=== PATIENT | male | born 1965 | race Caucasian/White ===

== ENCOUNTER 2016-11-06 18:16 | Emergency (ER) | payer OTHER ==
[~2016-11-06] VITALS: Ht 177.8 cm; Wt 95.3 kg
[~2016-11-06 18:16] MED LIST: ACETAMINOPHEN-1 EAC1 ORAL; ATARAX25 MG ORAL; AZITHROMYCIN250 MG ORAL; BACITRACIN ZIN1 EACH TOPIC; CIPRODEX OTIC7.5 M1 RIGHT EAR; CLEOCIN150 MG ORAL; CORTISONE14 GM TP; GABAPENTIN100 MG ORAL; HYDROCODON-ACE1 EA15 ORAL; KLONOPIN1 MG ORAL; LEVAQUIN750 MG ORAL; LIBRIUM25 MG ORAL; NAPROXEN375 MG ORAL; NEURONTIN300 MG PO; NKM; NORCO 10-325 T1 EACH PO; NORCO 5-325 TA1 EACH ORAL; NORVASC10 MG ORAL; NORVASC2.5 MG ORAL; TRAMADOL HCL50 MG ORAL; TYLENOL325 MG ORAL
[2016-11-06] MEDS ORDERED: Albuterol ud Inhalation HHN ONE (18:30)
[2016-11-06] MEDS ORDERED: Ipratropium 0.02% Inh Soln 2.5ml UD HHN ONE (18:30)
[2016-11-06 19:08] LABS: EOSINOPHILS % (AUTO) 0.5 % (0.0-3.0); LYMPHOCYTES % (AUTO) 26.9 % (20.0-45.0); MEAN CORPUSCULAR HEMOGLOBIN 30.7 PG (27.0-31.0); MEAN CORPUSCULAR VOLUME 93 FL (80-99); MEAN PLATELET VOLUME 6.4 FL (6.5-10.1); MONOCYTES % (AUTO) 8.1 % (1.0-10.0); NEUTROPHILS % (AUTO) 63.4 % (45.0-75.0); PLATELET COUNT 400 K/UL (150-450); RED CELL DISTRIBUTION WIDTH 13.5 % (11.6-14.8); WHITE BLOOD COUNT 9.9 K/UL (4.8-10.8)
[2016-11-06 19:09] LABS: APPEARANCE,URINE CLEAR; KETONES,URINE 1+ (NEGATIVE); LEUKOCYTE ESTERASE ,URINE NEGATIVE (NEGATIVE); NITRITE,URINE NEGATIVE (NEGATIVE); PH,URINE 5 (4.5-8.0); PROTEIN,URINE 2+ (NEGATIVE); UROBILINOGEN,URINE NORMAL MG/DL (0.0-1.0)
[2016-11-06 19:16] LABS: BACTERIA,URINE FEW /HPF; RBC,URINE 0-2 /HPF (0 - 0); URIC ACID CRYSTALS,URINE FEW /LPF; WBC,URINE 0-2 /HPF (0 - 0)
[2016-11-06 19:18] LABS: ALANINE AMINOTRANSFERASE 47 U/L (3-41); AMYLASE 114 U/L (10-110); ANION GAP 21 (5-15); ASPARTATE AMINO TRANSFERASE 32 U/L (5-40); CALCIUM 8.3 mg/dL (8.6-10.2); CARBON DIOXIDE 23 mEQ/L (20-30); CHLORIDE 100 mEQ/L (98-107); CREATININE 1.3 mg/dL (0.7-1.2); GLOMERULAR FILTRATION RATE 57.7 mL/min (>60); HEMOLYSIS 2; LIPASE 128 U/L (< 60); POTASSIUM 4.5 mEQ/L (3.4-4.9); SODIUM 144 mEQ/L (135-145); TOTAL PROTEIN 7.4 g/dL (6.6-8.7)
[2016-11-06] MEDS ORDERED: TYLENOL EXTRA500 MG ORAL (19:40)
[2016-11-06] MEDS ORDERED: ZOFRAN4 M3 ORAL (19:40)
[2016-11-06 20:22] VITALS: BP 154/102
[2016-11-06 20:24] VITALS: BP 150/99
--- NOTE | 2016-11-06 21:43 | Emergency Room Report ---
History of Present Illness General Chief Complaint: Abdominal Pain Source: EMS Present Illness HPI The patient is a 51-year-old male RIRIA with history of chronic pancreatitis due to alcohol abuse presenting for abdominal pain which began today. Pain is described as a 10 out of 10 dull ache to the mid upper abdomen. Pain does not radiate. Patient also notes some nausea but denies vomiting. The pain is worse with movement. The patient states that this feels like pancreatitis. Patient denies other symptoms including F, chills, EDMOND, rash, diarrhea, CP, SOB Allergies: Coded Allergies: PENICILLINS (Verified Allergy, Severe, unknown, 11/27/12) PHENOBARBITAL (Verified Allergy, Severe, unknown, 11/27/12) PHENYTOIN SODIUM (Verified Allergy, Severe, unknown, 11/27/12) PHENYTOIN (Unverified Allergy, Unknown, 05/14/16) Patient History Past Medical History: see triage record Pertinent Family History: none Reviewed Nursing Documentation: PMH: Agreed, PSxH: Agreed Nursing Documentation-PMH Hx Hypertension: Yes Hx Asthma: Yes Hx COPD: Yes Hx Diabetes: Yes Hx Cancer: Yes - PANCREATIC Hx Gastrointestinal Problems: Yes - Pancreatic CA History Of Psychiatric Problem: Yes Hx Seizures: Yes Review of Systems All Other Systems: negative except mentioned in HPI Physical Exam Vital Signs Date Time Temp Pulse Resp B/P Pulse Ox O2 Delivery O2 Flow Rate FiO2 11/06/16 18:03 98.2 100 16 154/102 100 Room Air Sp02 EP Interpretation: reviewed, normal General Appearance: no apparent distress, alert, GCS 15, non-toxic Head: normocephalic, atraumatic Eyes: bilateral eye PERRL, bilateral eye normal inspection ENT: hearing grossly normal, normal pharynx, no angioedema, normal voice Neck: full range of motion, supple/symm/no masses Respiratory: normal breath sounds, no accessory muscle use, wheezing Gastrointestinal: normal bowel sounds, no guarding, tenderness - epigastric Musculoskeletal: back normal, digits/nails normal, normal range of motion Neurologic: alert, oriented x3, responsive, normal gait Skin: normal color, no rash, warm/dry, well hydrated Lymphatic: no adenopathy Medical Decision Making PA Attestation Dr. Hayden is my supervising physician. Patient management was discussed with my supervising physician Diagnostic Impression: Primary Impression: Chronic pancreatitis ER Course The patient is a 51-year-old male BIBA with history of chronic pancreatitis presenting for abdominal pain Differential diagnoses considered include but not limited to gastroenteritis, pancreatitis, appendicitis,, UTI Physical exam: Afebrile. No apparent distress Abdomen: Soft. Normal bowel sounds. There is tenderness to palpation of her epigastric region only. No guarding. No discoloration There is audible wheezing. Patient given a breathing treatment and is feeling better. Lung sounds have improved Lab work shows no leukocytosis. There is mildly elevated amylase and lipase. The patient is asking to leave. Patient understands the risks. He'll be discharged and will follow up with PMD. ER precaution is given Laboratory Tests Test 11/06/16 18:51 White Blood Count 9.9 K/UL (4.8-10.8) Red Blood Count 4.10 M/UL (4.70-6.10) L Hemoglobin 12.6 G/DL (14.2-18.0) L Hematocrit 38.1 % (42.0-52.0) L Mean Corpuscular Volume 93 FL (80-99) Mean Corpuscular Hemoglobin 30.7 PG (27.0-31.0) Mean Corpuscular Hemoglobin Concent 33.0 G/DL (32.0-36.0) Red Cell Distribution Width 13.5 % (11.6-14.8) Platelet Count 400 K/UL (150-450) Mean Platelet Volume 6.4 FL (6.5-10.1) L Neutrophils (%) (Auto) 63.4 % (45.0-75.0) Lymphocytes (%) (Auto) 26.9 % (20.0-45.0) Monocytes (%) (Auto) 8.1 % (1.0-10.0) Eosinophils (%) (Auto) 0.5 % (0.0-3.0) Basophils (%) (Auto) 1.0 % (0.0-2.0) Urine Color Pale yellow Urine Appearance Clear Urine pH 5 (4.5-8.0) Urine Specific [place] 1.020 (1.005-1.035) Urine Protein 2+ (NEGATIVE) H Urine Glucose (UA) Negative (NEGATIVE) Urine Ketones 1+ (NEGATIVE) H Urine Occult Blood Negative (NEGATIVE) Urine Nitrite Negative (NEGATIVE) Urine Bilirubin Negative (NEGATIVE) Urine Urobilinogen Normal MG/DL (0.0-1.0) Urine Leukocyte Esterase Negative (NEGATIVE) Urine RBC 0-2 /HPF (0 - 0) H Urine WBC 0-2 /HPF (0 - 0) Urine Squamous Epithelial Cells None /LPF (NONE/OCC) Urine Uric Acid Crystals Few /LPF (NONE) H Urine Bacteria Few /HPF (NONE) Sodium Level 144 mEQ/L (135-145) Potassium Level 4.5 mEQ/L (3.4-4.9) Chloride Level 100 mEQ/L (98-107) Carbon Dioxide Level 23 mEQ/L (20-30) Anion Gap 21 (5-15) H Blood Urea Nitrogen 28 mg/dL (7-23) H Creatinine 1.3 mg/dL (0.7-1.2) H Estimate Glomerular Filtration Rate 57.7 mL/min (>60) Glucose Level 133 mg/dL (74-106) H Calcium Level 8.3 mg/dL (8.6-10.2) L Total Bilirubin < 0.2 mg/dL (0.0-1.2) Aspartate Amino Transferase (AST) 32 U/L (5-40) Alanine Aminotransferase (ALT) 47 U/L (3-41) H Alkaline Phosphatase 99 U/L (40-129) Total Protein 7.4 g/dL (6.6-8.7) Albumin 3.7 g/dL (3.5-5.2) Globulin 3.7 g/dL Albumin/Globulin Ratio 1.0 (1.0-2.7) Amylase Level 114 U/L (10-110) H Lipase 128 U/L (< 60) H Lab Results Impression CBC shows no leukocytosis. CMP: BUN and creatinine are mildly elevated. ALT elevated Amylase and lipase elevated. Last Vital Signs Date Time Temp Pulse Resp B/P Pulse Ox O2 Delivery O2 Flow Rate FiO2 11/06/16 20:24 84 20 150/99 95 Room Air 11/06/16 20:22 98.2 Status: improved Disposition: HOME, SELF-CARE Condition: Stable Scripts Ondansetron* (ZOFRAN*) 4 Mg Tablet 4 MG ORAL Q6H Y for Nausea & Vomiting, #15 TAB Prov: TERZIANGUILLERMO P.A. 11/06/16 Acetaminophen* (TYLENOL EXTRA STRENGTH*) 500 Mg Tablet 500 MG ORAL Q8H Y for Prn Headache/Temp > 101, #30 TAB 0 Refills Prov: GUILLERMO PEREZ 11/06/16 Referrals: [facility] (PCP) Patient Instructions: Abdominal Pain, Adult Additional Instructions: I discussed my findings with the patient. All questions and concerns have been answered. Treatment and medication compliance have been addressed. I advised the patient that they need to follow up with PMD in 3-5 days. Return to ED if symptoms worsen, new symptoms arise, or if needed for any reason. Patient verbalized understanding of discharge instructions. GUILLERMO PEREZ Nov 06, 2016 21:41
[2016-11-07] MEDS ORDERED: NORCO 5-325 TA1 EAC1 ORAL (16:40)
== END 2016-11-06 20:00 | disposition home or self-care (01) ==
LOC: EDBD 18:16 → EMR 18:28
DX: K86.1 Other chronic pancreatitis (principal); E11.9 Type 2 diabetes mellitus without complications; I10 Essential (primary) hypertension; J45.909 Unspecified asthma, uncomplicated; J44.9 Chronic obstructive pulmonary disease, unspecified; Z85.07 Personal history of malignant neoplasm of pancreas; Z88.0 Allergy status to penicillin; Z88.8 Allergy status to other drugs, medicaments and biological substances
CPT/HCPCS: 36415; 80053; 81003; 82150; 83690; 85025; 94640; 94664; 99284

== ENCOUNTER 2016-11-07 14:49 | Emergency (ER) | payer OTHER ==
[~2016-11-07] VITALS: Ht 177.8 cm; Wt 93.0 kg
[~2016-11-07 14:49] MED LIST changes: +TYLENOL EXTRA500 MG ORAL; +ZOFRAN4 M3 ORAL
[2016-11-07 14:53] VITALS: BP 155/112
--- NOTE | 2016-11-07 14:56 | Emergency Room Report ---
History of Present Illness General Chief Complaint: Abdominal Pain Source: Patient, EMS Present Illness HPI Patient is a 51-year-old male who presented after increased abdominal pain as well as vomiting. Patient had prior history of pancreatitis as well as alcohol abuse. Patient reports having increased vomiting. He denies any hematemesis or bloody stools. Patient been drinking alcohol earlier in the day. Patient reports also having a seizure disorder. He states he is allergic to Dilantin and phenobarbital. Allergies: Coded Allergies: PENICILLINS (Verified Allergy, Severe, unknown, 11/27/12) PHENOBARBITAL (Verified Allergy, Severe, unknown, 11/27/12) PHENYTOIN SODIUM (Verified Allergy, Severe, unknown, 11/27/12) PHENYTOIN (Unverified Allergy, Unknown, 05/14/16) Patient History Reviewed Nursing Documentation: PMH: Agreed, PSxH: Agreed Nursing Documentation-PMH Hx Hypertension: Yes Hx Asthma: Yes Hx COPD: Yes Hx Diabetes: Yes Hx Cancer: Yes - PANCREATIC Hx Gastrointestinal Problems: Yes - Pancreatic CA Hx Seizures: Yes Review of Systems Hematologic/Lymphatic: Reports: see HPI All Other Systems: negative except mentioned in HPI Physical Exam Vital Signs Date Time Temp Pulse Resp B/P Pulse Ox O2 Delivery O2 Flow Rate FiO2 11/07/16 14:46 97.3 123 20 155/112 98 Room Air Sp02 EP Interpretation: reviewed, normal General Appearance: normal inspection, well appearing, no apparent distress, alert, GCS 15 Head: atraumatic ENT: normal ENT inspection, hearing grossly normal, normal voice Neck: normal inspection, full range of motion, supple, no bony tend Respiratory: normal inspection, lungs clear, normal breath sounds, no respiratory distress, no retraction, no wheezing Cardiovascular #1: regular rate, rhythm, no edema Gastrointestinal: normal inspection, normal bowel sounds, non tender, soft, no guarding, no hernia Genitourinary: no CVA tenderness Musculoskeletal: normal inspection, back normal, normal range of motion Neurologic: normal inspection, alert, oriented x3, responsive, client support professional III-XII nml as tested, speech normal Psychiatric: normal inspection, judgement/insight normal, mood/affect normal Skin: normal inspection, normal color, no rash Medical Decision Making Diagnostic Impression: Primary Impression: Alcohol abuse Additional Impression: Pancreatitis ER Course Patient presented for abdominal pain. Differential diagnoses included ischemic bowel, appendicitis, perforated viscus, abdominal aortic aneurysm, inferior myocardial infarction, viral gastroenteritis Because of complexity of patient's case laboratory testing and imaging studies were ordered. The patient appeared to have episodes of pancreatitis in the past. Laboratory testing was consistent with pancreatitis. Patient shows no elevation of his white blood count. Liver function tests are consistent with a chronic alcohol use. Patient was given oral pain medications. He tolerated those well. The patient is advised to follow up with primary care doctor in 1-2 days. Patient is advised to return if any worsening condition or if any changes in status that are concerning. Labs Test 11/07/16 13:10 White Blood Count 9.6 K/UL (4.8-10.8) Red Blood Count 4.03 M/UL (4.70-6.10) Hemoglobin 12.2 G/DL (14.2-18.0) Hematocrit 37.1 % (42.0-52.0) Mean Corpuscular Volume 92 FL (80-99) Mean Corpuscular Hemoglobin 30.2 PG (27.0-31.0) Mean Corpuscular Hemoglobin Concent 32.8 G/DL (32.0-36.0) Red Cell Distribution Width 13.6 % (11.6-14.8) Platelet Count 456 K/UL (150-450) Mean Platelet Volume 7.0 FL (6.5-10.1) Neutrophils (%) (Auto) 63.7 % (45.0-75.0) Lymphocytes (%) (Auto) 29.4 % (20.0-45.0) Monocytes (%) (Auto) 5.6 % (1.0-10.0) Eosinophils (%) (Auto) 0.4 % (0.0-3.0) Basophils (%) (Auto) 0.9 % (0.0-2.0) Sodium Level 138 mEQ/L (135-145) Potassium Level 3.8 mEQ/L (3.4-4.9) Chloride Level 97 mEQ/L (98-107) Carbon Dioxide Level 21 mEQ/L (20-30) Anion Gap 20 (5-15) Blood Urea Nitrogen 20 mg/dL (7-23) Creatinine 0.9 mg/dL (0.7-1.2) Estimat Glomerular Filtration Rate > 60 mL/min (>60) Glucose Level 113 mg/dL (74-106) Calcium Level 8.5 mg/dL (8.6-10.2) Total Bilirubin < 0.2 mg/dL (0.0-1.2) Aspartate Amino Transf (AST/SGOT) 30 U/L (5-40) Alanine Aminotransferase (ALT/SGPT) 42 U/L (3-41) Alkaline Phosphatase 83 U/L (40-129) Troponin I < 0.30 ng/mL (<=0.30) Total Protein 7.3 g/dL (6.6-8.7) Albumin 3.8 g/dL (3.5-5.2) Globulin 3.5 g/dL Albumin/Globulin Ratio 1.0 (1.0-2.7) Lipase 110 U/L (< 60) Phenytoin (Dilantin) Level < 0.8 ug/mL (10-20) Last Vital Signs Date Time Temp Pulse Resp B/P Pulse Ox O2 Delivery O2 Flow Rate FiO2 11/07/16 14:53 20 155/112 98 Room Air 11/07/16 14:46 97.3 123 Status: improved Disposition: HOME, SELF-CARE Scripts Hydrocodone Bit/Acetaminophen 5-325* (NORCO 5-325 TABLET*) 1 Each Tablet 1 TAB ORAL Q4H Y for For Pain, #14 TAB Prov: El Rashid 11/07/16 El Rashid Nov 07, 2016 14:56
[2016-11-07] MEDS ORDERED: Morphine Sulfate 4mg/ml Inj IVP ONE (15:00)
[2016-11-07 15:30] LABS: BASOPHILS % (AUTO) 0.9 % (0.0-2.0); EOSINOPHILS % (AUTO) 0.4 % (0.0-3.0); LYMPHOCYTES % (AUTO) 29.4 % (20.0-45.0); MEAN CORPUSCULAR HEMOGLOBIN 30.2 PG (27.0-31.0); MEAN CORPUSCULAR HGB CONC 32.8 G/DL (32.0-36.0); MEAN CORPUSCULAR VOLUME 92 FL (80-99); MONOCYTES % (AUTO) 5.6 % (1.0-10.0); NEUTROPHILS % (AUTO) 63.7 % (45.0-75.0); PLATELET COUNT 456 K/UL (150-450); RED BLOOD COUNT 4.03 M/UL (4.70-6.10); RED CELL DISTRIBUTION WIDTH 13.6 % (11.6-14.8); WHITE BLOOD COUNT 9.6 K/UL (4.8-10.8)
[2016-11-07 15:43] LABS: ALANINE AMINOTRANSFERASE 42 U/L (3-41); ANION GAP 20 (5-15); ASPARTATE AMINO TRANSFERASE 30 U/L (5-40); CALCIUM 8.5 mg/dL (8.6-10.2); CARBON DIOXIDE 21 mEQ/L (20-30); CHLORIDE 97 mEQ/L (98-107); CREATININE 0.9 mg/dL (0.7-1.2); GLOMERULAR FILTRATION RATE > 60 mL/min (>60); HEMOLYSIS 3; LIPASE 110 U/L (< 60); POTASSIUM 3.8 mEQ/L (3.4-4.9); SODIUM 138 mEQ/L (135-145); TOTAL PROTEIN 7.3 g/dL (6.6-8.7)
[2016-11-07] MEDS ORDERED: DuoNeb 0.5-3(2.5)mg/3ml neb ONE (15:44)
[2016-11-07] MEDS ORDERED: DuoNeb 0.5-3(2.5)mg/3ml neb HHN ONE (15:45)
[2016-11-07 15:46] LABS: TROPONIN I < 0.30 ng/mL (<=0.30)
[2016-11-07] MEDS ORDERED: NORCO 5-325 TA1 EAC1 ORAL (16:40)
[2016-11-07 16:45] VITALS: BP 142/89
[2016-11-07] MEDS ORDERED: Norco 10mg/325mg tab ORAL ONE (16:45)
== END 2016-11-07 17:36 | disposition home or self-care (01) ==
LOC: EDBD 14:49 → EMR 15:09
DX: F10.10 Alcohol abuse, uncomplicated (principal); K85.90 Acute pancreatitis without necrosis or infection, unspecified; R11.10 Vomiting, unspecified; G40.909 Epilepsy, unspecified, not intractable, without status epilepticus; Z88.0 Allergy status to penicillin; Z88.8 Allergy status to other drugs, medicaments and biological substances; I10 Essential (primary) hypertension; J44.9 Chronic obstructive pulmonary disease, unspecified; J45.909 Unspecified asthma, uncomplicated; E11.9 Type 2 diabetes mellitus without complications; Z85.07 Personal history of malignant neoplasm of pancreas
CPT/HCPCS: 36415; 80053; 80185; 83690; 84484; 85025; 94640; 94664; 96374; 96375; 99284; J2270; J2405; J7620

== ENCOUNTER 2016-12-07 23:49 | Emergency (ER) | payer OTHER ==
[~2016-12-07] VITALS: Ht 175.3 cm; Wt 63.5 kg
[~2016-12-07 23:49] MED LIST changes: +NORCO 5-325 TA1 EAC1 ORAL
[2016-12-08] VITALS: BP 141/113
[2016-12-08] MEDS ORDERED: Metoclopramide 10mg/2ml Inj IVP ONE
[2016-12-08] MEDS ORDERED: Famotidine 20 MG/ 2ML VIAL IVP ONE
[2016-12-08] MEDS ORDERED: DiphenhydrAMINE 50mg/ml Inj IVP ONE
--- NOTE | 2016-12-08 00:14 | Emergency Room Report ---
History of Present Illness General Chief Complaint: Abdominal Pain Source: Patient, EMS Present Illness HPI The patient presents with abdominal pain. It woke him up from sleep. He has chronic abdominal pain with a history of pancreatitis. He was drinking alcohol. He denies other drugs. He has vomited once or twice, no blood. No fevers, chest pain, dyspnea, dizziness. Stools are loose, but no melena. Pain reported 05/29 - but calm during exam. He has been seen here multiple times. Brought by EMS. H/O seizures - denies recent seizures. H/O alleged pancreatic cancer - no treatment currently. Prior other substance abuse. No depression, HI, SI. No recent trauma or extremity pain. Allergies: Coded Allergies: PENICILLINS (Verified Allergy, Severe, unknown, 11/27/12) PHENOBARBITAL (Verified Allergy, Severe, unknown, 11/27/12) PHENYTOIN SODIUM (Verified Allergy, Severe, unknown, 11/27/12) IBUPROFEN (Unverified Allergy, Unknown, 12/07/16) PHENYTOIN (Unverified Allergy, Unknown, 05/14/16) Patient History Past Medical History: see triage record Social History: Reports: alcohol use, drug use, smoking Social History Narrative at home Reviewed Nursing Documentation: PMH: Agreed, PSxH: Agreed Nursing Documentation-PMH Past Medical History: No History, Except For Hx Hypertension: Yes Hx Asthma: Yes Hx COPD: Yes Hx Diabetes: Yes Hx Cancer: Yes - PANCREATIC Hx Seizures: Yes Review of Systems All Other Systems: negative except mentioned in HPI Physical Exam Vital Signs Date Time Temp Pulse Resp B/P Pulse Ox O2 Delivery O2 Flow Rate FiO2 12/07/16 23:48 98.1 126 16 141/113 98 Room Air Sp02 EP Interpretation: reviewed, normal General Appearance: well appearing, no apparent distress, GCS 15 Head: normocephalic Eyes: bilateral eye PERRL, bilateral eye Scleral Injection ENT: moist mucus membranes, other - R nare trauma Neck: supple Respiratory: lungs clear, normal breath sounds Cardiovascular #1: regular rate, rhythm Cardiovascular #2: 2+ radial (R) Gastrointestinal: normal inspection, normal bowel sounds, no mass, non- distended, tenderness - voluntary guarding, more epigastric - distractable Musculoskeletal: back normal, gait/station normal, normal range of motion Neurologic: alert, oriented x3, grossly normal Psychiatric: other - pressuring for pain medicine Skin: normal inspection, warm/dry Medical Decision Making Diagnostic Impression: Primary Impression: Abdominal pain Qualified Codes: R10.13 - Epigastric pain Additional Impressions: AMA Alcohol intoxication Qualified Codes: F10.129 - Alcohol abuse with intoxication, unspecified Chronic pancreatitis Qualified Codes: K86.1 - Other chronic pancreatitis ER Course Patient presents with abdominal pain with h/o pancreatitis. Ddx: pancreatitis, gastritis, alcohol intoxication, GERD, drug seeking amongst others. Urgent evaluation with labs. Treatment with IV hydration, reglan, benadryl and pepcid. Patient ripped out IV and left ED. He left before percocet was given. Labs return with elevated blood alcohol and minimally elevated lipase. Laboratory Tests Test 12/08/16 00:22 White Blood Count 7.3 K/UL (4.8-10.8) Red Blood Count 4.52 M/UL (4.70-6.10) L Hemoglobin 14.2 G/DL (14.2-18.0) Hematocrit 42.3 % (42.0-52.0) Mean Corpuscular Volume 94 FL (80-99) Mean Corpuscular Hemoglobin 31.5 PG (27.0-31.0) H Mean Corpuscular Hemoglobin Concent 33.6 G/DL (32.0-36.0) Red Cell Distribution Width 15.2 % (11.6-14.8) H Platelet Count 330 K/UL (150-450) Mean Platelet Volume 7.0 FL (6.5-10.1) Neutrophils (%) (Auto) 35.0 % (45.0-75.0) L Lymphocytes (%) (Auto) 54.5 % (20.0-45.0) H Monocytes (%) (Auto) 6.9 % (1.0-10.0) Eosinophils (%) (Auto) 2.5 % (0.0-3.0) Basophils (%) (Auto) 1.2 % (0.0-2.0) Prothrombin Time 10.5 SEC (9.30-11.50) Prothrombin Time INR 1.0 (0.9-1.1) PTT 26 SEC (23-33) Sodium Level 144 mEQ/L (135-145) Potassium Level 3.6 mEQ/L (3.4-4.9) Chloride Level 103 mEQ/L (98-107) Carbon Dioxide Level 26 mEQ/L (20-30) Anion Gap 15 (5-15) Blood Urea Nitrogen 10 mg/dL (7-23) Creatinine 0.7 mg/dL (0.7-1.2) Estimate Glomerular Filtration Rate > 60 mL/min (>60) Glucose Level 94 mg/dL (74-106) Calcium Level 8.2 mg/dL (8.6-10.2) L Total Bilirubin 0.2 mg/dL (0.0-1.2) Aspartate Amino Transferase (AST) 26 U/L (5-40) Alanine Aminotransferase (ALT) 18 U/L (3-41) Alkaline Phosphatase 78 U/L (40-129) Total Creatine Kinase 82 U/L (38-174) Troponin I < 0.30 ng/mL (<=0.30) Total Protein 7.2 g/dL (6.6-8.7) Albumin 3.4 g/dL (3.5-5.2) L Globulin 3.8 g/dL Albumin/Globulin Ratio 0.8 (1.0-2.7) L Lipase 88 U/L (< 60) H Serum Alcohol 330 mg/dL EKG Diagnostic Results Rate: tachycardiac Rhythm: NSR ST Segments: no acute changes Rhythm Strip Diag. Results EP Interpretation: yes Rhythm: no PVC's, no ectopy, other - tachy Last Vital Signs Date Time Temp Pulse Resp B/P Pulse Ox O2 Delivery O2 Flow Rate FiO2 12/08/16 00:50 98.1 126 16 141/113 98 Room Air Status: improved Disposition: AGAINST MEDICAL ADVICE Condition: Stable Referrals: [facility] (PCP) Zaid Hawkins M.D. Dec 08, 2016 00:14
[2016-12-08 00:49] LABS: BASOPHILS % (AUTO) 1.2 % (0.0-2.0); EOSINOPHILS % (AUTO) 2.5 % (0.0-3.0); LYMPHOCYTES % (AUTO) 54.5 % (20.0-45.0); MEAN CORPUSCULAR HEMOGLOBIN 31.5 PG (27.0-31.0); MEAN CORPUSCULAR HGB CONC 33.6 G/DL (32.0-36.0); MEAN CORPUSCULAR VOLUME 94 FL (80-99); MONOCYTES % (AUTO) 6.9 % (1.0-10.0); PLATELET COUNT 330 K/UL (150-450); RED BLOOD COUNT 4.52 M/UL (4.70-6.10); RED CELL DISTRIBUTION WIDTH 15.2 % (11.6-14.8); WHITE BLOOD COUNT 7.3 K/UL (4.8-10.8)
[2016-12-08 00:50] VITALS: BP 141/113
[2016-12-08 00:57] LABS: PROTHROMBIN TIME 10.5 SEC (9.30-11.50)
[2016-12-08 00:58] LABS: ALANINE AMINOTRANSFERASE 18 U/L (3-41); ALBUMIN/GLOBULIN RATIO 0.8 (1.0-2.7); ALCOHOL 330 mg/dL; ANION GAP 15 (5-15); ASPARTATE AMINO TRANSFERASE 26 U/L (5-40); CALCIUM 8.2 mg/dL (8.6-10.2); CARBON DIOXIDE 26 mEQ/L (20-30); CHLORIDE 103 mEQ/L (98-107); CREATININE 0.7 mg/dL (0.7-1.2); GLOMERULAR FILTRATION RATE > 60 mL/min (>60); HEMOLYSIS 6; LIPASE 88 U/L (< 60); POTASSIUM 3.6 mEQ/L (3.4-4.9); SODIUM 144 mEQ/L (135-145); TOTAL PROTEIN 7.2 g/dL (6.6-8.7)
[2016-12-08] MEDS ORDERED: Oxycodone/Acetaminophen 5-325 ORAL ONE (01:00)
[2016-12-08 01:27] LABS: TROPONIN I < 0.30 ng/mL (<=0.30)
== END 2016-12-08 00:50 | disposition left against medical advice (07) ==
LOC: EDBD 23:49 → EMR 23:58
DX: R10.13 Epigastric pain (principal); F10.129 Alcohol abuse with intoxication, unspecified; K86.1 Other chronic pancreatitis; G89.29 Other chronic pain; Z88.8 Allergy status to other drugs, medicaments and biological substances; Z88.6 Allergy status to analgesic agent; Z88.0 Allergy status to penicillin; I10 Essential (primary) hypertension; J44.9 Chronic obstructive pulmonary disease, unspecified; J45.909 Unspecified asthma, uncomplicated; Z85.07 Personal history of malignant neoplasm of pancreas; F17.200 Nicotine dependence, unspecified, uncomplicated; E11.9 Type 2 diabetes mellitus without complications
CPT/HCPCS: 36415; 80053; 80329; 82550; 83690; 84484; 85025; 85610; 85730; 93005; 96374; 96375; 99284; J1200; J2765; S0028

== ENCOUNTER 2017-01-05 13:49 | Emergency (ER) | payer OTHER ==
[~2017-01-05] VITALS: Ht 177.8 cm; Wt 77.1 kg
[2017-01-05 14:50] LABS: BASOPHILS % (AUTO) 0.9 % (0.0-2.0); EOSINOPHILS % (AUTO) 1.4 % (0.0-3.0); LYMPHOCYTES % (AUTO) 44.3 % (20.0-45.0); MEAN CORPUSCULAR HEMOGLOBIN 29.6 PG (27.0-31.0); MEAN CORPUSCULAR HGB CONC 31.7 G/DL (32.0-36.0); MEAN CORPUSCULAR VOLUME 93 FL (80-99); MEAN PLATELET VOLUME 6.9 FL (6.5-10.1); MONOCYTES % (AUTO) 5.8 % (1.0-10.0); NEUTROPHILS % (AUTO) 47.6 % (45.0-75.0); PLATELET COUNT 314 K/UL (150-450); RED BLOOD COUNT 5.09 M/UL (4.70-6.10); RED CELL DISTRIBUTION WIDTH 15.7 % (11.6-14.8); WHITE BLOOD COUNT 9.4 K/UL (4.8-10.8)
[2017-01-05 14:57] VITALS: BP 138/100
[2017-01-05] MEDS ORDERED: Norco 5mg/325mg tab ORAL ONE ×2 (15:15→16:45)
[2017-01-05] MEDS ORDERED: DuoNeb 0.5-3(2.5)mg/3ml neb ONE (15:36)
[2017-01-05] MEDS ORDERED: Albuterol ud Inhalation HHN SCH (15:45)
[2017-01-05] MEDS ORDERED: Ipratropium 0.02% Inh Soln 2.5ml UD HHN SCH (15:45)
[2017-01-05 15:56] LABS: ACETAMINOPHEN < 10 ug/mL (10-30); ALANINE AMINOTRANSFERASE 12 U/L (3-41); ALCOHOL 341 mg/dL; ASPARTATE AMINO TRANSFERASE 19 U/L (5-40); CALCIUM 8.9 mg/dL (8.6-10.2); CARBON DIOXIDE 23 mEQ/L (20-30); CREATININE 0.8 mg/dL (0.7-1.2); GLOMERULAR FILTRATION RATE > 60 mL/min (>60); HEMOLYSIS 0; TOTAL PROTEIN 7.6 g/dL (6.6-8.7)
[2017-01-05 15:57] LABS: ANION GAP 21 (5-15); CHLORIDE 99 mEQ/L (98-107); POTASSIUM 3.6 mEQ/L (3.4-4.9); SODIUM 143 mEQ/L (135-145)
[2017-01-05] MEDS ORDERED: PredniSONE 20mg tab ORAL ONE (16:00)
[2017-01-05] MEDS ORDERED: Morphine Sulfate 4mg/ml Inj IM ONE (17:15)
[2017-01-05] MEDS ORDERED: UNOBMED (18:42)
[2017-01-05 19:16] VITALS: BP 139/103
[2017-01-05] MEDS ORDERED: ZOFRAN4 M3 ORAL (20:21)
[2017-01-05 20:25] VITALS: BP 139/103
--- NOTE | 2017-01-05 21:49 | Emergency Room Report ---
History of Present Illness General Chief Complaint: Behavioral Complaint Source: Medical Record, EMS Present Illness HPI The patient is a 51-year-old male well-known to this emergency department for alcohol intoxication presenting for likely alcohol intoxication. The patient does not provide any information at this time Allergies: Coded Allergies: PENICILLINS (Verified Allergy, Severe, unknown, 11/27/12) PHENOBARBITAL (Verified Allergy, Severe, unknown, 11/27/12) PHENYTOIN SODIUM (Verified Allergy, Severe, unknown, 11/27/12) IBUPROFEN (Unverified Allergy, Unknown, 12/07/16) PHENYTOIN (Unverified Allergy, Unknown, 05/14/16) Patient History Past Medical History: see triage record Pertinent Family History: none Reviewed Nursing Documentation: PMH: Agreed, PSxH: Agreed Nursing Documentation-PMH Past Medical History: No History, Except For Hx Hypertension: Yes Hx Asthma: Yes Hx COPD: Yes Hx Diabetes: Yes Hx Cancer: Yes - PANCREATIC History Of Psychiatric Problem: Yes - PTSD, depression Hx Seizures: Yes Review of Systems All Other Systems: negative except mentioned in HPI Physical Exam Vital Signs Date Time Temp Pulse Resp B/P Pulse Ox O2 Delivery O2 Flow Rate FiO2 01/05/17 13:35 98.1 80 16 132/100 100 Room Air 01/05/17 15:42 21 Sp02 EP Interpretation: reviewed, normal General Appearance: no apparent distress, alert, GCS 15, non-toxic Head: normocephalic, atraumatic Eyes: bilateral eye PERRL, bilateral eye normal inspection ENT: hearing grossly normal, normal pharynx, no angioedema, normal voice Neck: full range of motion, supple/symm/no masses Respiratory: chest non-tender, normal breath sounds, no accessory muscle use, speaking full sentences, wheezing - diffuse Cardiovascular #1: regular rate, rhythm, no edema Musculoskeletal: back normal, gait/station normal, normal range of motion, non- tender Neurologic: responsive, motor strength/tone normal, sensory intact, speech normal Psychiatric: no suicidal/homicidal ideation Skin: normal color, no rash, warm/dry, well hydrated Lymphatic: no adenopathy Medical Decision Making PA Attestation Dr. Rashid is my supervising physician. Patient management was discussed with my supervising physician Diagnostic Impression: Primary Impression: Alcohol intoxication Qualified Codes: F10.120 - Alcohol abuse with intoxication, uncomplicated ER Course The patient is a 51-year-old male presenting for likely alcohol intoxication. DDx considered but not limited to: acute alcohol intoxication, hepatic encephalopathy, drug overdose, hypoglycemia, psychosis, head injury, among others Physical exam: No apparent distress. Patient is lethargic. Head is normocephalic atraumatic. Pupils are equally round and reactive to light The patient is arousable by touch or name. Lungs have diffuse wheezing bilaterally. No accessory muscle use. No abnormal tenderness. Abdomen is soft. Otherwise exam is unremarkable No tremors. The patient is given time to rest in the emergency department. He is given a breathing treatment and lung sounds have improved. He is given multiple doses of pain medication for stated total body pain with good improvement. CXR unremarkable. CBC and CMP unremarkable. UDS + for marijuana. Blood alcohol significantly elevated The patient is now able to ambulate well and is asking to leave at this time. The patient is alert and oriented. The patient be discharged home and given ER precautions. Patient was given advice on alcohol addiction Labs Test 01/05/17 14:30 01/05/17 15:25 White Blood Count 9.4 K/UL (4.8-10.8) Red Blood Count 5.09 M/UL (4.70-6.10) Hemoglobin 15.1 G/DL (14.2-18.0) Hematocrit 47.6 % (42.0-52.0) Mean Corpuscular Volume 93 FL (80-99) Mean Corpuscular Hemoglobin 29.6 PG (27.0-31.0) Mean Corpuscular Hemoglobin Concent 31.7 G/DL (32.0-36.0) Red Cell Distribution Width 15.7 % (11.6-14.8) Platelet Count 314 K/UL (150-450) Mean Platelet Volume 6.9 FL (6.5-10.1) Neutrophils (%) (Auto) 47.6 % (45.0-75.0) Lymphocytes (%) (Auto) 44.3 % (20.0-45.0) Monocytes (%) (Auto) 5.8 % (1.0-10.0) Eosinophils (%) (Auto) 1.4 % (0.0-3.0) Basophils (%) (Auto) 0.9 % (0.0-2.0) Urine Opiates Screen Negative (NEGATIVE) Urine Barbiturates Screen Negative (NEGATIVE) Phencyclidine (PCP) Screen Negative (NEGATIVE) Urine Amphetamines Screen Negative (NEGATIVE) Urine Benzodiazepines Screen Negative (NEGATIVE) Urine Cocaine Screen Negative (NEGATIVE) Urine Marijuana (THC) Screen Positive (NEGATIVE) Sodium Level 143 mEQ/L (135-145) Potassium Level 3.6 mEQ/L (3.4-4.9) Chloride Level 99 mEQ/L (98-107) Carbon Dioxide Level 23 mEQ/L (20-30) Anion Gap 21 (5-15) Blood Urea Nitrogen 13 mg/dL (7-23) Creatinine 0.8 mg/dL (0.7-1.2) Estimat Glomerular Filtration Rate > 60 mL/min (>60) Glucose Level 91 mg/dL (74-106) Calcium Level 8.9 mg/dL (8.6-10.2) Total Bilirubin 0.3 mg/dL (0.0-1.2) Aspartate Amino Transf (AST/SGOT) 19 U/L (5-40) Alanine Aminotransferase (ALT/SGPT) 12 U/L (3-41) Alkaline Phosphatase 87 U/L (40-129) Total Protein 7.6 g/dL (6.6-8.7) Albumin 3.8 g/dL (3.5-5.2) Globulin 3.8 g/dL Albumin/Globulin Ratio 1.0 (1.0-2.7) Salicylates Level < 1 mg/dL (10-30) Acetaminophen Level < 10 ug/mL (10-30) Serum Alcohol 341 mg/dL Lab Results Impression CBC and CMP unremarkable. UDS + for marijuana. Blood alcohol significantly elevated Chest X-Ray Diagnostic Results EP Interpretation: Yes Findings: no consolidation, no effusion, no pneumothorax, no acute cardiopulmonary disease Number of Views: 1 PA Scribe Text I am acting as scribe for my supervising physician. My supervising physician's interpretation of the chest xrays are there is no consolidation, no effusion, no acute cardiopulmonary disease, no pneumothorax Last Vital Signs Date Time Temp Pulse Resp B/P Pulse Ox O2 Delivery O2 Flow Rate FiO2 01/05/17 20:25 98.1 112 24 139/103 99 Room Air 21 Status: improved Disposition: HOME, SELF-CARE Condition: Improved Scripts Ondansetron* (ZOFRAN*) 4 Mg Tablet 4 MG ORAL Q6H Y for Nausea & Vomiting, #15 TAB Prov: GUILLERMO PEREZ 01/05/17 Referrals: [facility] (PCP) Patient Instructions: Nausea, Adult, Alcohol Intoxication Additional Instructions: My findings were discussed with the patient. Patient was counseled to seek help for alcohol abuse. Patient is stable for discharge, is alert and oriented, and can ambulate without difficulty. Patient is asked to return to ED if he experiences chest pain, abdominal pain, dizziness, falls down, or for any reason. GUILLERMO PEREZ January 05, 2017 21:49
== END 2017-01-05 20:25 | disposition home or self-care (01) ==
LOC: EDBD 13:49 → EMR 14:05
DX: F10.129 Alcohol abuse with intoxication, unspecified (principal); I10 Essential (primary) hypertension; J45.909 Unspecified asthma, uncomplicated; J44.9 Chronic obstructive pulmonary disease, unspecified; E11.9 Type 2 diabetes mellitus without complications; Z85.07 Personal history of malignant neoplasm of pancreas; F43.10 Post-traumatic stress disorder, unspecified; F32.9 Major depressive disorder, single episode, unspecified
CPT/HCPCS: 36415; 71010; 80053; 80300; 80329; 85025; 94640; 94664; 96372; 96374; 96375; 99284; J2270; J2405; J7620

== ENCOUNTER 2017-06-14 15:32 | Emergency (ER) | payer OTHER ==
[~2017-06-14] VITALS: Ht 182.9 cm; Wt 90.7 kg
[~2017-06-14 15:32] MED LIST changes: +UNOBMED
--- NOTE | 2017-06-14 15:51 | Emergency Room Report ---
History of Present Illness General Chief Complaint: Chest Pain Source: Patient, Medical Record Present Illness HPI Patient is well-known to this department. Patient has history alcohol abuse and has been to the emergency department multiple times complaining of abdominal pain. And chest pain. Patient presents to the emergency department now complaining of epigastric pain associate chest discomfort nausea and vomiting. He admits to drinking. He denies any shortness breath leg pain leg swelling. No other complaints are noted. Symptoms noted to be moderate to severe.No other modifying factors. No other associated signs and symptoms. No other complaints were noted. Allergies: Coded Allergies: PENICILLINS (Verified Allergy, Severe, unknown, 11/27/12) PHENOBARBITAL (Verified Allergy, Severe, unknown, 11/27/12) PHENYTOIN SODIUM (Verified Allergy, Severe, unknown, 11/27/12) CODEINE (Unverified Allergy, Unknown, 06/14/17) IBUPROFEN (Unverified Allergy, Unknown, 12/07/16) PHENYTOIN (Unverified Allergy, Unknown, 05/14/16) Patient History Past Medical History: HTN Past Surgical History: none Social History: Reports: smoking, alcohol use Reviewed Nursing Documentation: PMH: Agreed, PSxH: Agreed Nursing Documentation-PMH Past Medical History: No History, Except For Hx Hypertension: Yes Hx Asthma: Yes Hx COPD: Yes Hx Diabetes: Yes Hx Cancer: Yes - PANCREATIC Hx Seizures: Yes Review of Systems All Other Systems: negative except mentioned in HPI Physical Exam Vital Signs Date Time Temp Pulse Resp B/P (MAP) Pulse Ox O2 Delivery O2 Flow Rate FiO2 06/14/17 15:27 98.2 98 16 150/98 98 Room Air Sp02 EP Interpretation: reviewed, normal General Appearance: alert, moderate distress - patient is vomiting Head: atraumatic Eyes: bilateral eye normal inspection ENT: normal ENT inspection, hearing grossly normal, normal voice Neck: normal inspection, full range of motion, supple, no bony tend Respiratory: normal inspection, lungs clear, normal breath sounds, no respiratory distress, no retraction, no wheezing Cardiovascular #1: regular rate, rhythm, no edema Gastrointestinal: normal inspection, normal bowel sounds, soft, no guarding, no hernia, tenderness - epigastrium Genitourinary: no CVA tenderness Musculoskeletal: normal inspection, back normal, normal range of motion Neurologic: normal inspection, alert, responsive, speech normal Psychiatric: judgement/insight normal, depressed affect, anxious Skin: normal inspection, normal color, no rash Medical Decision Making Diagnostic Impression: Primary Impression: Alcohol abuse Additional Impressions: Alcohol intoxication Qualified Codes: F10.920 - Alcohol use, unspecified with intoxication, uncomplicated Gastritis Qualified Codes: K29.20 - Alcoholic gastritis without bleeding ER Course Patient presented to the emergency department today complaining of chest pain. Differential diagnoses include acute coronary syndrome, pulmonary embolism, pneumothorax, chest wall pain, pleurisy, pericarditis, acute anxiety reaction, gastritis just to name a few. Given the severity of the patient's presentation I felt this is a highly complex patient. This patient required extensive workup. CBC, chemistry, EKG, chest x-ray, cardiac enzymes, liver profile were all obtained. 12-lead EKG performed for nontraumatic chest pain. [facility] documentation: EKG was performed. Please refer to below for interpretation. Patient had CBC and chemistry obtained. Both of which were normal. Patient's cardiac enzymes also normal. Patient had normal chest x-ray. Patient's EKG and rhythm strip are also normal. I felt the patient symptoms are likely secondary to gastritis and alcohol abuse. He felt much better after pain medications.Given the patient feels much better, and he had a negative workup, I feel the patient can be discharged home.Patient is advised to follow up with primary doctor in 2-3 days and return the emergency room for any worsening symptoms and as needed. Patient is advised to stop drinking. Labs Test 06/14/17 15:41 06/14/17 16:57 White Blood Count 8.9 K/UL (4.8-10.8) Red Blood Count 4.89 M/UL (4.70-6.10) Hemoglobin 14.3 G/DL (14.2-18.0) Hematocrit 47.1 % (42.0-52.0) Mean Corpuscular Volume 96 FL (80-99) Mean Corpuscular Hemoglobin 29.3 PG (27.0-31.0) Mean Corpuscular Hemoglobin Concent 30.4 G/DL (32.0-36.0) Red Cell Distribution Width 15.4 % (11.6-14.8) Platelet Count 383 K/UL (150-450) Mean Platelet Volume 6.7 FL (6.5-10.1) Neutrophils (%) (Auto) 61.7 % (45.0-75.0) Lymphocytes (%) (Auto) 31.3 % (20.0-45.0) Monocytes (%) (Auto) 5.0 % (1.0-10.0) Eosinophils (%) (Auto) 0.7 % (0.0-3.0) Basophils (%) (Auto) 1.4 % (0.0-2.0) Sodium Level 142 MMOL/L (136-145) Potassium Level 4.3 MMOL/L (3.5-5.1) Chloride Level 105 MMOL/L (98-107) Carbon Dioxide Level 21 MMOL/L (21-32) Anion Gap 16 mmol/L (5-15) Blood Urea Nitrogen 17 mg/dL (7-18) Creatinine 0.9 MG/DL (0.55-1.30) Estimat Glomerular Filtration Rate > 60 mL/min (>60) Glucose Level 76 MG/DL (74-106) Calcium Level 9.1 MG/DL (8.5-10.1) Total Bilirubin 0.3 MG/DL (0.2-1.0) Aspartate Amino Transf (AST/SGOT) 18 U/L (15-37) Alanine Aminotransferase (ALT/SGPT) 13 U/L (12-78) Alkaline Phosphatase 90 U/L (46-116) Troponin I 0.000 ng/mL (0.000-0.056) Total Protein 8.7 G/DL (6.4-8.2) Albumin 3.7 G/DL (3.4-5.0) Globulin 5.0 g/dL Albumin/Globulin Ratio 0.7 (1.0-2.7) Lipase 260 U/L (73-393) Serum Alcohol 157 mg/dL EKG Diagnostic Results Rate: tachycardiac Rhythm: NSR ST Segments: no acute changes Rhythm Strip Diag. Results EP Interpretation: yes Rate: 106 Rhythm: NSR, no PVC's, no ectopy Chest X-Ray Diagnostic Results Chest X-Ray Diagnostic Results : Chest X-Ray Ordered: Yes # of Views/Limited/Complete: 1 View Indication: Chest Pain EP Interpretation: No Interpretation: no consolidation Impression: No acute disease Last Vital Signs Date Time Temp Pulse Resp B/P (MAP) Pulse Ox O2 Delivery O2 Flow Rate FiO2 06/14/17 15:37 98 16 Room Air 06/14/17 15:27 98.2 150/98 98 Status: improved Disposition: HOME, SELF-CARE Condition: Stable RANJITH GALEANA M.D. Jun 14, 2017 15:51
[2017-06-14] MEDS ORDERED: HYDROmorphone 1mg/ml Carpuject ONE (15:58)
[2017-06-14] MEDS ORDERED: DiphenhydrAMINE 50mg/ml Inj ONE (15:59)
[2017-06-14] MEDS ORDERED: HYDROmorphone 1 MG, DiphenhydrAMINE 25 MG in NS 55 ML IV ONE (16:00)
[2017-06-14 16:04] LABS: WHITE BLOOD COUNT 8.9 K/UL (4.8-10.8)
[2017-06-14 16:05] LABS: BASOPHILS % (AUTO) 1.4 % (0.0-2.0); EOSINOPHILS % (AUTO) 0.7 % (0.0-3.0); LYMPHOCYTES % (AUTO) 31.3 % (20.0-45.0); MEAN CORPUSCULAR HEMOGLOBIN 29.3 PG (27.0-31.0); MEAN CORPUSCULAR HGB CONC 30.4 G/DL (32.0-36.0); MEAN CORPUSCULAR VOLUME 96 FL (80-99); MEAN PLATELET VOLUME 6.7 FL (6.5-10.1); NEUTROPHILS % (AUTO) 61.7 % (45.0-75.0); PLATELET COUNT 383 K/UL (150-450); RED BLOOD COUNT 4.89 M/UL (4.70-6.10); RED CELL DISTRIBUTION WIDTH 15.4 % (11.6-14.8)
[2017-06-14 16:31] LABS: ALANINE AMINOTRANSFERASE 13 U/L (12-78); ALBUMIN/GLOBULIN RATIO 0.7 (1.0-2.7); ALCOHOL 157 mg/dL; ANION GAP 16 mmol/L (5-15); ASPARTATE AMINO TRANSFERASE 18 U/L (15-37); CALCIUM 9.1 MG/DL (8.5-10.1); CARBON DIOXIDE 21 MMOL/L (21-32); CHLORIDE 105 MMOL/L (98-107); CREATININE 0.9 MG/DL (0.55-1.30); GLOMERULAR FILTRATION RATE > 60 mL/min (>60); LIPASE 260 U/L (73-393); POTASSIUM 4.3 MMOL/L (3.5-5.1); SODIUM 142 MMOL/L (136-145); TOTAL PROTEIN 8.7 G/DL (6.4-8.2)
[2017-06-14 16:38] VITALS: BP 132/89
--- NOTE | 2017-06-14 17:14 | Diagnostic Imaging Report ---
Indication: COUGH, chest pain Technique: One view of the chest Comparison: 01/05/2017 Findings: Lungs and pleural spaces are clear. Heart size is normal. No significant interim change Impression: No acute process
[2017-06-14 17:17] VITALS: BP 145/93
[2017-06-14 17:27] LABS: APPEARANCE,URINE CLEAR; KETONES,URINE NEGATIVE (NEGATIVE); LEUKOCYTE ESTERASE ,URINE NEGATIVE (NEGATIVE); NITRITE,URINE NEGATIVE (NEGATIVE); PH,URINE 5 (4.5-8.0); PROTEIN,URINE 1+ (NEGATIVE); UROBILINOGEN,URINE NORMAL MG/DL (0.0-1.0)
[2017-06-14 17:42] LABS: RBC,URINE 0-2 /HPF (0 - 0); WBC,URINE 0-2 /HPF (0 - 0)
[2017-06-14 17:43] LABS: BACTERIA,URINE OCCASIONAL /HPF
[2017-06-14] MEDS ORDERED: NS 55ml IV ONE (17:44)
--- NOTE | 2017-06-17 18:45 | Cardiology Report ---
APPROVED REPORT EKG Measurement Heart [id number] Sinus tachycardia Possible Anterior infarct, age undetermined Abnormal ECG
== END 2017-06-14 17:50 | disposition home or self-care (01) ==
LOC: EDBD 15:32 → EMR 17:43
DX: F10.129 Alcohol abuse with intoxication, unspecified (principal); K29.70 Gastritis, unspecified, without bleeding; I10 Essential (primary) hypertension; E11.9 Type 2 diabetes mellitus without complications; J44.9 Chronic obstructive pulmonary disease, unspecified; Z85.07 Personal history of malignant neoplasm of pancreas; Z88.6 Allergy status to analgesic agent; Z88.0 Allergy status to penicillin; Z88.8 Allergy status to other drugs, medicaments and biological substances; R07.9 Chest pain, unspecified; R05 Cough
CPT/HCPCS: 36415; 71010; 80053; 80329; 81003; 83690; 84484; 85025; 93005; 96361; 96365; 96375; 99284; J1170; J1200; J2405

== ENCOUNTER 2017-06-27 19:18 | Emergency (ER) | payer OTHER ==
[~2017-06-27] VITALS: Ht 177.8 cm; Wt 90.7 kg
[2017-06-27 19:20] VITALS: BP 148/88
[2017-06-27] MEDS ORDERED: Norco 5mg/325mg tab ORAL ONE (19:30)
[2017-06-27] MEDS ORDERED: TYLENOL EXTRA500 MG ORAL (20:01)
[2017-06-27 20:05] VITALS: BP 140/80
--- NOTE | 2017-06-29 23:25 | Emergency Room Report ---
History of Present Illness General Chief Complaint: Back Pain-No Injury Source: Patient Present Illness HPI Patient 51 male presented after increased low back pain. Patient prior history of similar type symptoms in the past. Patient was brought in by EMS after some worsening of his back pain. Patient had previously been seen multiple times in emergency department. He has prior history of seizure disorder as well as alcohol abuse. Allergies: Coded Allergies: PENICILLINS (Verified Allergy, Severe, unknown, 11/27/12) PHENOBARBITAL (Verified Allergy, Severe, unknown, 11/27/12) PHENYTOIN SODIUM (Verified Allergy, Severe, unknown, 11/27/12) CODEINE (Unverified Allergy, Unknown, 06/14/17) IBUPROFEN (Unverified Allergy, Unknown, 12/07/16) PHENYTOIN (Unverified Allergy, Unknown, 05/14/16) Patient History Past Medical History: see triage record Reviewed Nursing Documentation: PMH: Agreed, PSxH: Agreed Nursing Documentation-PMH Hx Cardiac Problems: Yes Hx Hypertension: Yes Hx Asthma: Yes Hx COPD: Yes Hx Diabetes: Yes Hx Cancer: Yes History Of Psychiatric Problem: Yes Hx Seizures: Yes Review of Systems All Other Systems: negative except mentioned in HPI Physical Exam Vital Signs Date Time Temp Pulse Resp B/P (MAP) Pulse Ox O2 Delivery O2 Flow Rate FiO2 06/27/17 19:13 98.6 84 18 148/88 98 Room Air General Appearance: well appearing, no apparent distress, alert, GCS 15 Head: normocephalic, atraumatic ENT: hearing grossly normal, normal voice Neck: full range of motion, supple Respiratory: no respiratory distress, speaking full sentences Gastrointestinal: normal inspection, normal bowel sounds, non tender, soft Musculoskeletal: normal inspection, back normal, digits/nails normal, no calf tenderness Neurologic: normal inspection, alert, oriented x3, responsive, normal gait Psychiatric: mood/affect normal Skin: no rash Medical Decision Making Diagnostic Impression: Primary Impression: Back pain ER Course Patient presented for back pain. Differential diagnosis included but was not limited to herniated disc, cauda equina syndrome, abdominal aortic aneurysm, perforated ulcer, spinal epidural abscess, spinal stenosis, lumbar fracture, metastatic lesion, pyelonephritis. Patient's benign exam and does not appear to require any further imaging or laboratory testing at this time. Patient was given oral pain medications. The patient declined imaging and laboratory testing . The patient denied suicidal ideation. The patient is advised to follow up with primary care doctor in 1-2 days. Patient is advised to return if any worsening condition or if any changes in status that are concerning. Last Vital Signs Date Time Temp Pulse Resp B/P (MAP) Pulse Ox O2 Delivery O2 Flow Rate FiO2 06/27/17 20:05 98.6 83 16 140/80 99 Room Air Status: improved Disposition: HOME, SELF-CARE Condition: Stable Scripts Acetaminophen* (TYLENOL EXTRA STRENGTH*) 500 Mg Tablet 500 MG ORAL Q8H Y for Prn Headache/Temp > 101, #30 TAB 0 Refills Prov: El Rashid 06/27/17 Referrals: [facility] (PCP) Patient Instructions: Back Pain, Adult El Rashid Jun 29, 2017 23:25
== END 2017-06-27 20:05 | disposition home or self-care (01) ==
LOC: EDBD 19:18 → EMR 19:49
DX: M54.9 Dorsalgia, unspecified (principal); G40.909 Epilepsy, unspecified, not intractable, without status epilepticus; I10 Essential (primary) hypertension; J44.9 Chronic obstructive pulmonary disease, unspecified; E11.9 Type 2 diabetes mellitus without complications; Z85.9 Personal history of malignant neoplasm, unspecified; Z88.0 Allergy status to penicillin; Z88.6 Allergy status to analgesic agent; Z88.8 Allergy status to other drugs, medicaments and biological substances
CPT/HCPCS: 99283

== ENCOUNTER 2017-08-14 22:43 | Emergency (ER) | payer OTHER ==
[~2017-08-14] VITALS: Ht 170.2 cm; Wt 88.0 kg
--- NOTE | 2017-08-14 22:52 | Emergency Room Report ---
History of Present Illness General Source: Patient, Medical Record, EMS Present Illness HPI This is a 52-year-old male with a history of alcohol abuse. Also history of pancreatitis and chronic pain. He called 911 for generalize pain. Mostly upper abdomen and chest pain. EMS said he was wheezing. Once he got here he said he doesn't want it stay here. He wanted a different hospital. Paramedics made to him that all the hospital and the surrounding area on diversion. Patient is adamant that he doesn't want to stay. He said he never any pain medication here. He was cursing and was combative. I explained to the patient that right now, with only hospital open to EMS. At this point, patient got off the gurney and walked out. I did not examine the patient. Allergies: Coded Allergies: PENICILLINS (Verified Allergy, Severe, unknown, 11/27/12) PHENOBARBITAL (Verified Allergy, Severe, unknown, 11/27/12) PHENYTOIN SODIUM (Verified Allergy, Severe, unknown, 11/27/12) CODEINE (Unverified Allergy, Unknown, 06/14/17) IBUPROFEN (Unverified Allergy, Unknown, 12/07/16) PHENYTOIN (Unverified Allergy, Unknown, 05/14/16) Patient History Past Medical History: see triage record, old chart reviewed Past Surgical History: other Pertinent Family History: none Social History: Reports: smoking, alcohol use Immunizations: other Reviewed Nursing Documentation: PMH: Agreed, PSxH: Agreed Nursing Documentation-PMH Hx Hypertension: Yes Hx Asthma: Yes Hx COPD: Yes Hx Diabetes: Yes Hx Cancer: Yes - PANCREATIC Hx Seizures: Yes Medical Decision Making Diagnostic Impression: Primary Impression: Abdominal pain Qualified Codes: R10.84 - Generalized abdominal pain Status: unchanged Disposition: LEFT W/OUT BEING SEEN LUIS HERNANDEZ M.D. Aug 14, 2017 22:52
[2017-08-14 23:03] VITALS: BP 146/106
[2017-08-14 23:05] VITALS: BP 146/106
== END 2017-08-14 23:06 | disposition left against medical advice (07) ==
LOC: EDBD 22:43 → EMR 22:55
DX: R10.84 Generalized abdominal pain (principal); Z53.21 Procedure and treatment not carried out due to patient leaving prior to being seen by health care provider
CPT/HCPCS: 99281

== ENCOUNTER 2017-08-25 19:19 | Emergency (ER) | payer OTHER ==
[~2017-08-25] VITALS: Ht 177.8 cm; Wt 79.4 kg
[2017-08-25 19:30] VITALS: BP 149/103
[2017-08-25 20:32] VITALS: BP 149/103
--- NOTE | 2017-08-25 23:10 | Emergency Room Report ---
History of Present Illness General Chief Complaint: Upper Respiratory Illness Source: Patient, EMS (ADAM PEREZ.Kaylie) Present Illness HPI The patient is a 52-year-old male brought in by ambulance for cough. The patient states that the cough began yesterday. He denies any recent travel or known sick contacts. He denies any fever or chills. He denies other symptoms including hemoptysis, shortness of breath, chest pain, vomiting, myalgia (ADAM PEREZ.Kaylie) Allergies: Coded Allergies: PENICILLINS (Verified Allergy, Severe, unknown, 11/27/12) PHENOBARBITAL (Verified Allergy, Severe, unknown, 11/27/12) PHENYTOIN SODIUM (Verified Allergy, Severe, unknown, 11/27/12) CODEINE (Unverified Allergy, Unknown, 06/14/17) IBUPROFEN (Unverified Allergy, Unknown, 12/07/16) PHENYTOIN (Unverified Allergy, Unknown, 05/14/16) Patient History Past Medical History: see triage record Pertinent Family History: none Reviewed Nursing Documentation: PMH: Agreed, PSxH: Agreed (ADAM PEREZ) Nursing Documentation-PMH Past Medical History: No History, Except For Hx Cardiac Problems: Yes Hx Hypertension: Yes Hx Asthma: Yes Hx COPD: Yes Hx Diabetes: Yes Hx Cancer: Yes History Of Psychiatric Problem: Yes Hx Neurological Problems: No - Pancreatic cancer Hx Seizures: Yes (ADAM PEREZ P.ATeressa) Review of Systems All Other Systems: negative except mentioned in HPI (ADAM PEREZ P.ATeressa) Physical Exam Vital Signs Date Time Temp Pulse Resp B/P (MAP) Pulse Ox O2 Delivery O2 Flow Rate FiO2 08/25/17 19:15 98.2 98 14 149/103 96 Room Air Sp02 EP Interpretation: reviewed, normal General Appearance: no apparent distress, alert, GCS 15, non-toxic Head: normocephalic, atraumatic Eyes: bilateral eye normal inspection, bilateral eye PERRL ENT: hearing grossly normal, normal voice, uvula midline Neck: full range of motion, supple/symm/no masses Respiratory: chest non-tender, lungs clear, normal breath sounds, no wheezing, speaking full sentences Cardiovascular #1: regular rate, rhythm, no edema Neurologic: alert, oriented x3, responsive, motor strength/tone normal, sensory intact, speech normal Psychiatric: judgement/insight normal, memory normal, no suicidal/homicidal ideation, anxious Skin: normal color, no rash, warm/dry, well hydrated (ADAM PEREZ) Medical Decision Making PA Attestation Dr. Hawkins is my supervising physician. Patient management was discussed with my supervising physician (ADAM PEREZ) Diagnostic Impression: Primary Impression: Cough in adult ER Course The patient is a 52-year-old male brought in by ambulance for cough. Differential diagnosis include but not limited to pharyngitis, sinusitis, AOM, bronchitis, PNA PE: Afebrile. NAD HEENT exam is unremarkable Lungs are clear to auscultation bilaterally CXR unremarkable The patient has become aggressive and states he is waiting too long. He has eloped (ADAM PEREZ) Chest X-Ray Diagnostic Results Chest X-Ray Diagnostic Results : Chest X-Ray Ordered: Yes # of Views/Limited/Complete: 1 View Indication: Other - cough EP Interpretation: Yes PA Xray: Interpretation reviewed, by supervising MD, and agrees with findings. Interpretation: no consolidation, no effusion, no pneumothorax, no acute cardiopulmonary disease Impression: No acute disease Electronically Signed by: Adam Perez PA-C (ADAM PEREZ) Chest X-Ray Diagnostic Results : Electronically Signed by: Domenic documentation reviewed by me and is accurate, Zaid Hawkins MD. (Zaid Hawkins M.D.) Last Vital Signs Date Time Temp Pulse Resp B/P (MAP) Pulse Ox O2 Delivery O2 Flow Rate FiO2 08/25/17 19:30 98 14 Room Air 08/25/17 19:15 98.2 149/103 96 Status: improved (ADAM PEREZ) Disposition: ELOPED Condition: Stable Referrals: [facility] (PCP) ADAM PEREZ Aug 25, 2017 23:10 Zaid Hawkins M.D. Aug 26, 2017 07:58
--- NOTE | 2017-08-28 15:32 | Diagnostic Imaging Report ---
Indication: Cough Technique: XRAY Chest 1v Comparison: 06/14/2017 Findings: Cardiomediastinal silhouette is stable. There is no consolidation or pleural effusion. Degenerative changes of the spine are noted. Impression: No acute cardiopulmonary disease.
== END 2017-08-25 20:32 | disposition left against medical advice (07) ==
LOC: EDBD 19:19 → EMR 19:53
DX: R05 Cough (principal); I10 Essential (primary) hypertension; J45.909 Unspecified asthma, uncomplicated
CPT/HCPCS: 71045; 99283

== ENCOUNTER 2018-03-24 16:49 | Emergency (ER) | payer OTHER ==
[~2018-03-24] VITALS: Ht 172.7 cm; Wt 65.8 kg
[2018-03-24 16:57] VITALS: BP 152/109
--- NOTE | 2018-03-24 17:11 | Emergency Room Report ---
History of Present Illness General Chief Complaint: Multiple Trauma/Fall Source: Patient Present Illness HPI Patient present with complaints of pain to the right hip area Describes a mechanical fall about 3 hours prior to arrival patient however has not been able to stand and has increased pain when trying to do so Denies any lapse of consciousness denies any lightheadedness Denies any abdominal pain Pain is rated as 10 out of 10 denies any pain to the knee or the ankle area Allergies: Coded Allergies: PENICILLINS (Verified Allergy, Severe, unknown, 11/27/12) PHENOBARBITAL (Verified Allergy, Severe, unknown, 11/27/12) PHENYTOIN SODIUM (Verified Allergy, Severe, unknown, 11/27/12) CODEINE (Unverified Allergy, Unknown, 06/14/17) IBUPROFEN (Unverified Allergy, Unknown, 12/07/16) PHENYTOIN (Unverified Allergy, Unknown, 05/14/16) Patient History Past Medical History: see triage record Pertinent Family History: none Reviewed Nursing Documentation: PMH: Agreed; PSxH: Agreed Nursing Documentation-PMH Hx Cardiac Problems: Yes Hx Hypertension: Yes Hx Asthma: Yes Hx COPD: Yes Hx Diabetes: Yes Hx Cancer: Yes Hx Neurological Problems: No - Pancreatic cancer Hx Seizures: Yes Review of Systems All Other Systems: negative except mentioned in HPI Physical Exam Vital Signs Date Time Temp Pulse Resp B/P (MAP) Pulse Ox O2 Delivery O2 Flow Rate FiO2 03/24/18 16:47 97.8 110 18 128/83 98 Room Air 97.9 Sp02 EP Interpretation: reviewed, normal General Appearance: well appearing, no apparent distress Head: normocephalic, atraumatic Eyes: bilateral eye PERRL, bilateral eye EOMI ENT: normal pharynx, no angioedema Neck: supple Respiratory: lungs clear Cardiovascular #1: regular rate, rhythm Gastrointestinal: non tender, soft Musculoskeletal: other - Tender on palpation of the right hip area Neurologic: alert, oriented x3, responsive Skin: normal color, no rash Lymphatic: no adenopathy Medical Decision Making Diagnostic Impression: Primary Impression: Pelvic fracture Additional Impressions: Hip fracture, right Pathological fracture ER Course Given the patient's presentation and discomfort imaging studies obtained Radiology reports that there is some pathological presentation with the hip area with abnormal findings Patient himself is a poor historian cannot provide any further significant history Given this finding patient is also found to be tachycardic extensive workup is initiated Patient requiring further inpatient care Labs Test 03/24/18 18:00 03/24/18 18:40 White Blood Count 8.0 K/UL (4.8-10.8) Red Blood Count 5.53 M/UL (4.70-6.10) Hemoglobin 17.3 G/DL (14.2-18.0) Hematocrit 51.4 % (42.0-52.0) Mean Corpuscular Volume 93 FL (80-99) Mean Corpuscular Hemoglobin 31.2 PG (27.0-31.0) Mean Corpuscular Hemoglobin Concent 33.6 G/DL (32.0-36.0) Red Cell Distribution Width 14.9 % (11.6-14.8) Platelet Count 332 K/UL (150-450) Mean Platelet Volume 7.9 FL (6.5-10.1) Neutrophils (%) (Auto) 47.6 % (45.0-75.0) Lymphocytes (%) (Auto) 41.9 % (20.0-45.0) Monocytes (%) (Auto) 7.6 % (1.0-10.0) Eosinophils (%) (Auto) 1.4 % (0.0-3.0) Basophils (%) (Auto) 1.5 % (0.0-2.0) Sodium Level 137 MMOL/L (136-145) Potassium Level 5.8 MMOL/L (3.5-5.1) Chloride Level 101 MMOL/L (98-107) Carbon Dioxide Level 21 MMOL/L (21-32) Anion Gap 15 mmol/L (5-15) Blood Urea Nitrogen 26 mg/dL (7-18) Creatinine 0.9 MG/DL (0.55-1.30) Estimat Glomerular Filtration Rate > 60 mL/min (>60) Glucose Level 88 MG/DL (74-106) Calcium Level 8.8 MG/DL (8.5-10.1) Total Bilirubin 0.4 MG/DL (0.2-1.0) Aspartate Amino Transf (AST/SGOT) 33 U/L (15-37) Alanine Aminotransferase (ALT/SGPT) 26 U/L (12-78) Alkaline Phosphatase 96 U/L (46-116) Total Creatine Kinase 170 U/L (26-308) Creatine Kinase MB 1.1 NG/ML (0.0-3.6) Creatine Kinase MB Relative Index 0.6 Troponin I 0.000 ng/mL (0.000-0.056) Total Protein 8.9 G/DL (6.4-8.2) Albumin 3.7 G/DL (3.4-5.0) Globulin 5.2 g/dL Albumin/Globulin Ratio 0.7 (1.0-2.7) Serum Alcohol 230 mg/dL Urine Opiates Screen Negative (NEGATIVE) Urine Barbiturates Screen Negative (NEGATIVE) Phencyclidine (PCP) Screen Negative (NEGATIVE) Urine Amphetamines Screen Negative (NEGATIVE) Urine Benzodiazepines Screen Negative (NEGATIVE) Urine Cocaine Screen Negative (NEGATIVE) Urine Marijuana (THC) Screen Positive (NEGATIVE) Rhythm Strip Diag. Results EP Interpretation: yes Rate: 96 Rhythm: NSR, no PVC's, no ectopy Chest X-Ray Diagnostic Results Chest X-Ray Diagnostic Results : Chest X-Ray Ordered: Yes # of Views/Limited/Complete: 1 View Indication: Chest Pain EP Interpretation: Yes Interpretation: no consolidation, no effusion, no pneumothorax Impression: No acute disease Electronically Signed by: Charlie Mcintosh DO CT/MRI/US Diagnostic Results CT/MRI/US Diagnostic Results : Impression CT pelvicCT PELVIS Without Contrast: Pathologic fracture of the right femoral head that maybe fromall underlying avascular necrosis, or infection. Femoral head is collapsed, irregular with sclerotic erosive changes. Fragmentation a Last Vital Signs Date Time Temp Pulse Resp B/P (MAP) Pulse Ox O2 Delivery O2 Flow Rate FiO2 03/24/18 16:57 99.0 124 19 152/109 96 Room Air 99.0 Status: improved Disposition: XFER SHT-TRM HOSP Condition: Serious Referrals: [facility] (PCP) Charlie Mcintosh DO Mar 24, 2018 17:11
[2018-03-24] MEDS ORDERED: HYDROmorphone 1mg/ml Carpuject IM ONE (17:15)
[2018-03-24] MEDS ORDERED: HYDROmorphone 1mg/ml Carpuject IVP ONE (17:45)
[2018-03-24] MEDS ORDERED: Sodium Chloride 500ML 500 ML IV ONE (17:45)
[2018-03-24 18:15] LABS: BASOPHILS % (AUTO) 1.5 % (0.0-2.0); EOSINOPHILS % (AUTO) 1.4 % (0.0-3.0); HEMATOCRIT 51.4 % (42.0-52.0); HEMOGLOBIN 17.3 G/DL (14.2-18.0); LYMPHOCYTES % (AUTO) 41.9 % (20.0-45.0); MEAN CORPUSCULAR VOLUME 93 FL (80-99); MONOCYTES % (AUTO) 7.6 % (1.0-10.0); NEUTROPHILS % (AUTO) 47.6 % (45.0-75.0); PLATELET COUNT 332 K/UL (150-450); RED BLOOD COUNT 5.53 M/UL (4.70-6.10); RED CELL DISTRIBUTION WIDTH 14.9 % (11.6-14.8)
[2018-03-24] MEDS ORDERED: Potassium Chloride 10 MEQ in NS 1000ml 1,000 ML IV SCH (18:15)
[2018-03-24 18:27] LABS: ANION GAP 15 mmol/L (5-15); BLOOD UREA NITROGEN 26 mg/dL (7-18); CALCIUM 8.8 MG/DL (8.5-10.1); CARBON DIOXIDE 21 MMOL/L (21-32); CHLORIDE 101 MMOL/L (98-107); CREATININE 0.9 MG/DL (0.55-1.30); POTASSIUM 5.8 MMOL/L (3.5-5.1); SODIUM 137 MMOL/L (136-145)
[2018-03-24 18:45] LABS: ALANINE AMINOTRANSFERASE 26 U/L (12-78); ALBUMIN 3.7 G/DL (3.4-5.0); ALBUMIN/GLOBULIN RATIO 0.7 (1.0-2.7); ALKALINE PHOSPHATASE 96 U/L (46-116); ASPARTATE AMINO TRANSFERASE 33 U/L (15-37); BILIRUBIN,TOTAL 0.4 MG/DL (0.2-1.0); CKMB 1.1 NG/ML (0.0-3.6); CREATINE KINASE 170 U/L (26-308)
[2018-03-24] MEDS ORDERED: LORazepam Inj 2mg/ml 1ml IV ONE (19:00)
[2018-03-24 19:12] VITALS: BP 173/138
[2018-03-24 19:30] VITALS: BP 141/100
--- NOTE | 2018-03-25 08:56 | Diagnostic Imaging Report ---
Indication: Pain, status post fall Technique: Noncontrast spiral acquisitions obtained through the pelvis. Multiplanar reconstructions generated. Total dose length product 411.14 mGycm. CTDIvol(s) 14.38 mGy. Dose reduction achieved using automated exposure control Comparison: none Findings: There is a comminuted fracture of the right femoral head, which demonstrates considerable fragmentation. There is chronic appearing sclerosis of the femoral head and evidence of numerous subchondral cysts. In the areas where the articulation is preserved the joint space appears very narrowed, and subchondral cysts and subchondral sclerosis are also seen on the acetabular side of the hip joint. The acetabulum is otherwise intact. There is a joint effusion. No other acute fractures or dislocations are demonstrated, and the left hip appears unremarkable. There are some traction osteophytes of the left inferior pubic ramus and posterior left femoral intertrochanteric region. There are degenerative changes of the lumbosacral junction Included pelvic viscera are unremarkable. Impression: Comminuted fracture of the right femoral head, considerably fragmented. This may be pathological, as it is superimposed upon background severe degenerative change and possible old avascular necrosis or infection Other findings as noted . This agrees with the preliminary interpretation provided overnight by [facility] teleradiology service. The CT scanner at [facility] is accredited by the [employer] and the scans are performed using protocols designed to limit radiation exposure to as low as reasonably achievable to attain images of sufficient resolution adequate for diagnostic evaluation.
--- NOTE | 2018-03-25 08:59 | Diagnostic Imaging Report ---
Indication: Chest pain Technique: One view of the chest Comparison: 08/25/2017 Findings: Lungs and pleural spaces are clear. Heart size is normal . No significant interim change Impression: No acute process
--- NOTE | 2018-03-29 14:12 | Cardiology Report ---
APPROVED REPORT EKG Measurement Heart [id number] Sinus tachycardia Otherwise normal ECG
== END 2018-03-24 19:30 | disposition short-term general hospital (02) ==
LOC: EDBD 16:49 → EMR 17:04
DX: S72.051A Unspecified fracture of head of right femur, initial encounter for closed fracture (principal); W19.XXXA Unspecified fall, initial encounter; Y92.9 Unspecified place or not applicable; I10 Essential (primary) hypertension; E11.9 Type 2 diabetes mellitus without complications; J44.9 Chronic obstructive pulmonary disease, unspecified; Z88.0 Allergy status to penicillin; Z88.5 Allergy status to narcotic agent; Z88.6 Allergy status to analgesic agent; Z88.8 Allergy status to other drugs, medicaments and biological substances
CPT/HCPCS: 36415; 71045; 72192; 80053; 80307; 80329; 82550; 82553; 84484; 85025; 93005; 96365; 96372; 96375; 99285; J1170; J3480

== ENCOUNTER 2018-03-29 08:57 | Emergency (ER) | payer OTHER ==
[~2018-03-29] VITALS: Ht 167.6 cm; Wt 72.6 kg
[2018-03-29] MEDS ORDERED: HYDROcodone/Acetamin 10/325 tab ORAL ONE (09:15)
[2018-03-29 10:12] VITALS: BP 131/80
--- NOTE | 2018-03-29 11:12 | Emergency Room Report ---
History of Present Illness General Chief Complaint: Multiple Trauma/Fall Present Illness HPI Mr. Gray has a hx of alcohol abuse and seizure disorder. He presents with right hip pain. He recently left [facility] against medical advice. He explained that he made a poor decision to leave the hospital before he received operative repair. In his opinion, he broke his hip 8 months ago after fall. He was recently dx'd in our ER 5 days ago with femur fx. He was transferred to another hospital on that visit for operative repair. He has persistent pain in spite [place] tabs. He fell in shower today. No new injury due to fall. Allergies: Coded Allergies: PENICILLINS (Verified Allergy, Severe, unknown, 11/27/12) PHENOBARBITAL (Verified Allergy, Severe, unknown, 11/27/12) PHENYTOIN SODIUM (Verified Allergy, Severe, unknown, 11/27/12) CODEINE (Unverified Allergy, Unknown, 06/14/17) IBUPROFEN (Unverified Allergy, Unknown, 12/07/16) PHENYTOIN (Unverified Allergy, Unknown, 05/14/16) Patient History Past Medical History: other - alcohol abuse, seizure Past Surgical History: other - orthopedic surgery appendectomy Pertinent Family History: other - not pertient Social History: Reports: alcohol use - daily use Nursing Documentation-PMH Hx Cardiac Problems: Yes Hx Hypertension: Yes Hx Asthma: Yes Hx COPD: Yes Hx Diabetes: Yes Hx Cancer: Yes Hx Neurological Problems: No - Pancreatic cancer Hx Seizures: Yes Review of Systems Constitutional: Denies: fever, malaise Respiratory: Denies: cough Cardiovascular: Denies: chest pain Gastrointestinal: Denies: abdominal pain All Other Systems: negative except mentioned in HPI Physical Exam Vital Signs Date Time Temp Pulse Resp B/P (MAP) Pulse Ox O2 Delivery O2 Flow Rate FiO2 03/29/18 08:52 98.1 125 18 128/82 98 Room Air 98.1 Sp02 EP Interpretation: reviewed, normal General Appearance: no apparent distress, alert, GCS 15, non-toxic Head: normocephalic, atraumatic Eyes: bilateral eye normal inspection ENT: hearing grossly normal, normal pharynx, no angioedema, normal voice Neck: full range of motion, supple/symm/no masses Respiratory: chest non-tender, lungs clear, normal breath sounds, speaking full sentences Cardiovascular #1: regular rate, rhythm, no edema Cardiovascular #2: 2+ carotid (R), 2+ carotid (L), 2+ radial (R), 2+ radial (L) , 2+ dorsalis pedis (R), 2+ dorsalis pedis (L) Gastrointestinal: normal bowel sounds, non tender, soft, non-distended, no guarding, no rebound Genitourinary: normal inspection Musculoskeletal: back normal Neurologic: alert, oriented x3, responsive, motor strength/tone normal, sensory intact, speech normal Psychiatric: judgement/insight normal, memory normal, mood/affect normal Skin: normal color, no rash, warm/dry, well hydrated Medical Decision Making Diagnostic Impression: Primary Impression: Femur fracture, right Additional Impression: Fall ER Course I reviewed previous ED record. Imaging revealed pathological right femur fracture with collapsed femoral head. He agreed to be transferred to hospital for operative repair. I spoke with Dr. Fleming physician who accepted patient in transfer to [facility] in [place]. I provided PO med for pain prior to transfer. Last Vital Signs Date Time Temp Pulse Resp B/P (MAP) Pulse Ox O2 Delivery O2 Flow Rate FiO2 03/29/18 10:16 98.6 03/29/18 10:12 75 16 131/80 99 Room Air Disposition: XFER SHT-TRM HOSP Condition: Stable Referrals: [facility] (PCP) DAMON HORTON Mar 29, 2018 11:12
[2018-03-29 12:39] VITALS: BP 136/78
[2018-03-29 12:44] VITALS: BP 136/78
== END 2018-03-29 12:44 | disposition short-term general hospital (02) ==
LOC: EDBD 08:57 → EMR 09:24
DX: S72.051A Unspecified fracture of head of right femur, initial encounter for closed fracture (principal); W18.2XXA Fall in (into) shower or empty bathtub, initial encounter; Y93.E1 Activity, personal bathing and showering; Y92.89 Other specified places as the place of occurrence of the external cause; E11.9 Type 2 diabetes mellitus without complications; I10 Essential (primary) hypertension; J44.9 Chronic obstructive pulmonary disease, unspecified; Z85.07 Personal history of malignant neoplasm of pancreas; Z88.0 Allergy status to penicillin; Z88.8 Allergy status to other drugs, medicaments and biological substances
CPT/HCPCS: 99284

== ENCOUNTER 2018-04-08 18:51 | Emergency (ER) | payer OTHER ==
[~2018-04-08] VITALS: Ht 172.7 cm; Wt 83.9 kg
[2018-04-08 19:30] VITALS: BP 150/105
[2018-04-08] MEDS ORDERED: Norco 5mg/325mg tab ORAL ONE (19:30)
--- NOTE | 2018-04-08 20:50 | Emergency Room Report ---
History of Present Illness General Chief Complaint: General Complaint Source: Medical Record Present Illness HPI * Denies numbness tingling or loss of sensation or gross motor movements of the extremities, incontinence of bowel or bladder. Denies CP, Palpitations, LOC, AMS , dizziness, Changes in Vision, weakness or a sudden severe headache. Allergies: Coded Allergies: PENICILLINS (Verified Allergy, Severe, unknown, 11/27/12) PHENOBARBITAL (Verified Allergy, Severe, unknown, 11/27/12) PHENYTOIN SODIUM (Verified Allergy, Severe, unknown, 11/27/12) CODEINE (Unverified Allergy, Unknown, 06/14/17) IBUPROFEN (Unverified Allergy, Unknown, 12/07/16) PHENYTOIN (Unverified Allergy, Unknown, 05/14/16) Patient History Past Medical History: see triage record Past Surgical History: none Pertinent Family History: none Reviewed Nursing Documentation: PMH: Agreed; PSxH: Agreed Nursing Documentation-PMH Past Medical History: No History, Except For Hx Cardiac Problems: Yes Hx Hypertension: Yes Hx Asthma: Yes Hx COPD: Yes Hx Diabetes: Yes Hx Cancer: Yes Hx Dialysis: Yes Hx Seizures: Yes Review of Systems All Other Systems: negative except mentioned in HPI Physical Exam Vital Signs Date Time Temp Pulse Resp B/P (MAP) Pulse Ox O2 Delivery O2 Flow Rate FiO2 04/08/18 18:52 98.4 100 16 150/105 98 Room Air 98.4 Medical Decision Making PA Attestation Dr. Rashid is my supervising Physician whom patient management has been discussed with. Diagnostic Impression: Primary Impression: Pathological fracture Qualified Codes: M84.451A - Pathological fracture, right femur, initial encounter for fracture Additional Impressions: Hip fracture, right Qualified Codes: S72.001A - Fracture of unspecified part of neck of right femur, initial encounter for closed fracture Hip pain Qualified Codes: M25.551 - Pain in right hip Medical non-compliance ER Course Pt. presents to the ED c/o persistent right hip pain x 1 month. Denies new trauma or fall. left AMA from hospital that he was transferred to for management of his condition. _-Pt. reports that he has appt scheduled with his enrichment specialist next month ( Apr.) pt. states that he has been in pain for going on 1 year and is tired of waiting. Pt. reports he left AMA from [facility] today. Ddx considered but are not limited to Fracture, dislocation, contusion, Sprain/ Strain/Spasm, Epidural abscess, Neoplastic mets. Vital signs: are WNL, pt. is afebrile H&PE are most consistent with musculoskeletal injury will perform imaging to r/ o fractures/dislocations. --Review of this patients previous visits show twice this past month pt. was evaluated in the ED for this same problem and was transferred to an accepting hospital where the patient would then subsequently leave AMA. ORDERS: - None required at this time. No new trauma or fall, most recent imaging shows femur fx-pathological . ED INTERVENTIONS: - Graham 5mg -Lidoderm patch 5% I d/w this patient that as he has an appt scheduled with an orthopedist and already has a wheel chair that he can be closely managed as an out patient. D/ W pt. that in the future leaving AMA is not advised as this can delay his care. D/w pt. that for strong pain medication his PCP needs to prescribe this, as his condition is not acute and he has been seen twice in the last month here for this issue. DISCHARGE: At this time pt. is stable for d/c to home. Will provide printed patient care instructions, and any necessary prescriptions. Care plan and follow up instructions have been discussed with the patient prior to discharge. Last Vital Signs Date Time Temp Pulse Resp B/P (MAP) Pulse Ox O2 Delivery O2 Flow Rate FiO2 04/08/18 19:45 98.4 04/08/18 18:52 100 16 150/105 98 Room Air Disposition: HOME, SELF-CARE Condition: Stable Scripts Lidocaine (Lidoderm) 1 Each Adh..patch 1 PATCH TOPIC DAILY, #30 PATCH 0 Refills Patch(es) may remain in place for up to 12 hours in any 24-hour period. Prov: Celestina Baptiste 04/08/18 Acetaminophen* (TYLENOL EXTRA STRENGTH*) 500 Mg Tablet 500 MG ORAL Q8H, #20 TAB 0 Refills Prov: Celestina Baptiste 04/08/18 Referrals: [facility] (PCP) Patient Instructions: Hip Fracture Additional Instructions: Take any previously prescribed medications as directed. Follow up with you FACTORY MANAGER in 3-5 days, even if your symptoms have resolved. Keep your scheduled appointment for next month. Return sooner to ED if new symptoms occur, or current symptoms become worse. Do not drink alcohol, drive, or operate heavy machinery while taking Graham as this may cause drowsiness. - Please note that this Emergency Department Report was dictated using [employer] business analyst technology software, occasionally this can lead to erroneous entry secondary to interpretation by the dictation equipment. Cleestina Baptiste Apr 08, 2018 20:50
[2018-04-08] MEDS ORDERED: LIDODERM700 M1 TOPIC (21:12)
[2018-04-08] MEDS ORDERED: TYLENOL EXTRA500 MG ORAL (21:12)
[2018-04-08 21:20] VITALS: BP 146/96
== END 2018-04-08 21:20 | disposition home or self-care (01) ==
LOC: EDBD 18:51 → EDUNIT# 18:51 → EMR 19:30
DX: M84.451A Pathological fracture, right femur, initial encounter for fracture (principal); S72.001A Fracture of unspecified part of neck of right femur, initial encounter for closed fracture; M25.551 Pain in right hip; Z91.14 Patient's other noncompliance with medication regimen; X58.XXXA Exposure to other specified factors, initial encounter; Y93.9 Activity, unspecified; Y92.9 Unspecified place or not applicable; Z88.6 Allergy status to analgesic agent; Z88.0 Allergy status to penicillin; Z88.8 Allergy status to other drugs, medicaments and biological substances; I10 Essential (primary) hypertension; J44.9 Chronic obstructive pulmonary disease, unspecified; E11.9 Type 2 diabetes mellitus without complications; Z85.9 Personal history of malignant neoplasm, unspecified
CPT/HCPCS: 99283

== ENCOUNTER 2019-01-07 12:43 | Emergency (ER) | payer OTHER ==
[~2019-01-07] VITALS: Ht 175.3 cm; Wt 70.3 kg
[2019-01-07 12:43] VITALS: BP 123/92
[~2019-01-07 12:43] MED LIST changes: +LIDODERM700 M1 TOPIC; +LOSARTAN POTAS100 MG ORAL; +METFORMIN HCL500 M4 ORAL; +OMEPRAZOLE10 M1 ORAL
--- NOTE | 2019-01-07 12:44 | NUR ---
ED Nurse Note: Patient brought in by ambulance from home due to numbness in the face x 3. EMS found empty Vodka bottles around the patient and patient has hx of alcohol abuse. Patient able to move from gurney to bed with steady gait using cane. Patient awake, alert, oriented x4. Regular, unlabored breathing noted. RN attempted to place patient on the machine rigger, but patient refused. Patient states 'let go. Leave me alone' in mildly loud voice. Patient turned himself away from the nurse. Bed in lowest position.
--- NOTE | 2019-01-07 12:54 | NUR ---
ED Nurse Note: Patient appears irritable. Patient found in room removing cardiac cables and putting his clothes on. When askedwhy, he was dressed and statedd 'I need to go home' in mild loud voice. Dr. Albert notified and told patient of possible risk and consequences of him leaving the hospital with headache and numbness in the face. RN asked if patient wants to talk to his director case management, but patient did not answer. Patient remained in bed. Dr. Albert notified. Bed in lowest position.
--- NOTE | 2019-01-07 13:16 | NUR ---
ED Nurse Note: Patient refused to get into hospital gown. Patient does not state the reason. RN able to establish IV to right hand 20g. Patient is calm and remained in bed. Report given to FIDELINA Day. Addendum: 01/07/19 at 1326 by DIANE Urinal at bedside.
--- NOTE | 2019-01-07 13:23 | NUR ---
ED Nurse Note: Pt off the floor to CT
[2019-01-07 13:31] LABS: EOSINOPHILS % (AUTO) 1.5 % (0.0-3.0); HEMOGLOBIN 15.3 G/DL (14.2-18.0); LYMPHOCYTES % (AUTO) 35.6 % (20.0-45.0); MEAN CORPUSCULAR VOLUME 93 FL (80-99); MONOCYTES % (AUTO) 13.1 % (1.0-10.0); NEUTROPHILS % (AUTO) 48.9 % (45.0-75.0); PLATELET COUNT 230 K/UL (150-450); RED BLOOD COUNT 4.97 M/UL (4.70-6.10); RED CELL DISTRIBUTION WIDTH 14.5 % (11.6-14.8)
--- NOTE | 2019-01-07 13:31 | NUR ---
ED Nurse Note: Pt back from CT
[2019-01-07 13:59] LABS: ALANINE AMINOTRANSFERASE 43 U/L (12-78); ALBUMIN 3.4 G/DL (3.4-5.0); ALBUMIN/GLOBULIN RATIO 0.8 (1.0-2.7); ALKALINE PHOSPHATASE 105 U/L (46-116); ANION GAP 15 mmol/L (5-15); ASPARTATE AMINO TRANSFERASE 42 U/L (15-37); BILIRUBIN,TOTAL 0.5 MG/DL (0.2-1.0); BLOOD UREA NITROGEN 12 mg/dL (7-18); CALCIUM 8.1 MG/DL (8.5-10.1); CARBON DIOXIDE 27 MMOL/L (21-32); CHLORIDE 97 MMOL/L (98-107); CREATININE 1.1 MG/DL (0.55-1.30); SODIUM 138 MMOL/L (136-145)
[2019-01-07 14:01] LABS: POTASSIUM 2.7 MMOL/L (3.5-5.1)
--- NOTE | 2019-01-07 14:06 | Diagnostic Imaging Report ---
Indication: Altered mental status Technique: Contiguous 5 mm thick transaxial imaging of the head obtained in a Siemens Sensation [address] scanner. Soft tissue and bone windows generated. Automatic Exposure Control was utilized. Total Dose length Product (DLP): 1379.[address] Dose Index Volume (CTDIvol): 70.38 mGy Comparison: none Findings: There is mild prominence of the ventricles, basal cisterns, and cerebral sulci consistent with atrophy. Mild, nonspecific, white matter hypoattenuation is noted throughout the brain consistent with chronic small vessel disease. There is no midline shift, edema, acute hemorrhage, mass effect, or abnormal extra-axial fluid collections. Bones and extra osseous soft tissues are unremarkable. Mild anterior ethmoid sinus opacification noted. Impression: No acute intracranial bleed, mass effect or edema. Mild atrophy of the brain. Nonspecific white matter hypoattenuation probably due to chronic small vessel disease. Ethmoid sinusitis The CT scanner at [facility] is accredited by the [employer] and the scans are performed using dose optimization techniques as appropriate to a performed exam including Automatic Exposure control.
--- NOTE | 2019-01-07 14:20 | NUR ---
ED Nurse Discharge Note: Pt found in room attempting to leave ED, stated he was leaving and wanted the IV out. Pt did not state reason for wanting to leave. IV removed from R hand without issue, removed ID band. Pt stable, A&Ox4, steady gait, pt refused to sign AMA form but verbalized understanding of risks. Dr Albert notified. Pt sitting in waiting room waiting for taxi, voucher provided.
--- NOTE | 2019-01-07 14:29 | Emergency Room Report ---
History of Present Illness General Chief Complaint: Alcohol Intoxication Source: Patient, EMS Present Illness HPI This patient is brought in by EMS from the streets. He has a history of alcohol abuse. He complains of facial numbness and bilateral lower she many numbness and tingling. He denies pain. He denies recent illness. He denies fever or chills. He has no other complaints. Allergies: Coded Allergies: PENICILLINS (Verified Allergy, Severe, unknown, 11/27/12) PHENOBARBITAL (Verified Allergy, Severe, unknown, 11/27/12) PHENYTOIN SODIUM (Verified Allergy, Severe, unknown, 11/27/12) CODEINE (Unverified Allergy, Unknown, 06/14/17) IBUPROFEN (Unverified Allergy, Unknown, 12/07/16) PHENYTOIN (Unverified Allergy, Unknown, 05/14/16) Patient History Past Medical History: see triage record, DM, HTN, asthma, COPD, seizures, other - ETOH abuse Social History: Reports: alcohol use; Denies: smoking, drug use Reviewed Nursing Documentation: PMH: Agreed; PSxH: Agreed Nursing Documentation-PMH Hx Cardiac Problems: Yes Hx Hypertension: Yes Hx Asthma: Yes Hx COPD: Yes Hx Diabetes: Yes Hx Cancer: Yes Hx Dialysis: Yes Hx Seizures: Yes Review of Systems All Other Systems: negative except mentioned in HPI Physical Exam Vital Signs Date Time Temp Pulse Resp B/P (MAP) Pulse Ox O2 Delivery O2 Flow Rate FiO2 01/07/19 12:14 99.0 89 14 99 Room Air 01/07/19 12:43 123/92 Sp02 EP Interpretation: reviewed, normal General Appearance: no apparent distress, alert, GCS 15, non-toxic Head: normocephalic, atraumatic Eyes: bilateral eye normal inspection, bilateral eye PERRL ENT: hearing grossly normal, normal pharynx, no angioedema, normal voice Neck: full range of motion, supple/symm/no masses Respiratory: chest non-tender, lungs clear, normal breath sounds, speaking full sentences Cardiovascular #1: regular rate, rhythm, no edema Gastrointestinal: normal bowel sounds, non tender, soft, non-distended, no guarding, no rebound Rectal: deferred Musculoskeletal: back normal, gait/station normal, normal range of motion, non- tender Neurologic: alert, oriented x3, responsive, motor strength/tone normal, sensory intact, speech normal Psychiatric: judgement/insight normal, memory normal, mood/affect normal, no suicidal/homicidal ideation Skin: normal color, no rash, warm/dry, well hydrated Medical Decision Making Diagnostic Impression: Primary Impression: Acute alcoholic intoxication Additional Impression: Hypokalemia ER Course Patient presents with alcohol intoxication. He has a known history of alcohol intoxication. He was also found to be hypokalemic which is likely secondary to poor oral intake. I had ordered potassium chloride orally and had planned on repeating the potassium level. However, the patient eloped. The RN at the patient states that she asked him to stay and he wanted to leave. I did obtain a head CT and there was no evidence of an acute intracranial process. Overall, the patient did not have any neurologic findings. The patient eloped without further treatment. Laboratory Tests Test 01/07/19 13:15 White Blood Count 6.0 K/UL (4.8-10.8) Red Blood Count 4.97 M/UL (4.70-6.10) Hemoglobin 15.3 G/DL (14.2-18.0) Hematocrit 46.0 % (42.0-52.0) Mean Corpuscular Volume 93 FL (80-99) Mean Corpuscular Hemoglobin 30.7 PG (27.0-31.0) Mean Corpuscular Hemoglobin Concent 33.2 G/DL (32.0-36.0) Red Cell Distribution Width 14.5 % (11.6-14.8) Platelet Count 230 K/UL (150-450) Mean Platelet Volume 7.4 FL (6.5-10.1) Neutrophils (%) (Auto) 48.9 % (45.0-75.0) Lymphocytes (%) (Auto) 35.6 % (20.0-45.0) Monocytes (%) (Auto) 13.1 % (1.0-10.0) H Eosinophils (%) (Auto) 1.5 % (0.0-3.0) Basophils (%) (Auto) 1.0 % (0.0-2.0) Sodium Level 138 MMOL/L (136-145) Potassium Level 2.7 MMOL/L (3.5-5.1) *L Chloride Level 97 MMOL/L (98-107) L Carbon Dioxide Level 27 MMOL/L (21-32) Anion Gap 15 mmol/L (5-15) Blood Urea Nitrogen 12 mg/dL (7-18) Creatinine 1.1 MG/DL (0.55-1.30) Estimate Glomerular Filtration Rate > 60 mL/min (>60) Glucose Level 116 MG/DL (74-106) H Calcium Level 8.1 MG/DL (8.5-10.1) L Total Bilirubin 0.5 MG/DL (0.2-1.0) Aspartate Amino Transferase (AST) 42 U/L (15-37) H Alanine Aminotransferase (ALT) 43 U/L (12-78) Alkaline Phosphatase 105 U/L (46-116) Total Protein 7.8 G/DL (6.4-8.2) Albumin 3.4 G/DL (3.4-5.0) Globulin 4.4 g/dL Albumin/Globulin Ratio 0.8 (1.0-2.7) L Serum Alcohol 281 mg/dL EKG Diagnostic Results Rate: tachycardiac Rhythm: other - S.tachycardia ST Segments: no acute changes Rhythm Strip Diag. Results EP Interpretation: yes Rate: 100's Rhythm: no PVC's, no ectopy, other - S.tachycardia CT/MRI/US Diagnostic Results CT/MRI/US Diagnostic Results : Imaging Test Ordered: CT head Impression No acute findings. Specifically no intracranial bleed, mass effect or edema. See official report. Last Vital Signs Date Time Temp Pulse Resp B/P (MAP) Pulse Ox O2 Delivery O2 Flow Rate FiO2 01/07/19 12:44 107 19 Room Air 01/07/19 12:43 97.2 123/92 99 Disposition: ELOPED Condition: Stable Referrals: [facility] ([facility]P) Chasidy Albert DO January 07, 2019 14:29
--- NOTE | 2019-01-07 14:41 | NUR ---
Note liam in EDM - 01/07/19 at 1446 by DIANE ED Nurse Note: Patient in waiting room. Patient ok to take medication at this time. Placed patient in chair and given potassium supplement as ordered. Patient tolerated oral fluids and meds without difficutly. Patient went back to waiting room [facility].
[2019-01-07 19:34] VITALS: BP 123/92
--- NOTE | 2019-01-08 20:23 | Cardiology Report ---
APPROVED REPORT EKG Measurement Heart [id number] Sinus tachycardia Otherwise normal ECG
== END 2019-01-07 14:45 | disposition left against medical advice (07) ==
LOC: EDBD 12:43 → EMR 12:58
DX: F10.129 Alcohol abuse with intoxication, unspecified (principal); E87.6 Hypokalemia; Z88.0 Allergy status to penicillin; Z88.6 Allergy status to analgesic agent; Z88.8 Allergy status to other drugs, medicaments and biological substances; I10 Essential (primary) hypertension; J44.9 Chronic obstructive pulmonary disease, unspecified; E11.9 Type 2 diabetes mellitus without complications; Z85.9 Personal history of malignant neoplasm, unspecified; G40.909 Epilepsy, unspecified, not intractable, without status epilepticus; R00.0 Tachycardia, unspecified
CPT/HCPCS: 70450; 80053; 80329; 85025; 93005; 96360; 99284; J8499

== ENCOUNTER 2019-02-19 15:39 | Inpatient (IN) | payer OTHER ==
[~2019-02-19] VITALS: Ht 177.8 cm; Wt 83.9 kg
[~2019-02-19 15:39] MED LIST changes: -BENADRYL25 M3 PO; -GABAPENTIN800 MG ORAL; -NEURONTIN300 MG ORAL; -NORCO 10-325 T1 EACH ORAL; -REMERON30 M1 ORAL; -SEROQUEL300 MG ORAL
--- NOTE | 2019-02-19 15:40 | NUR ---
ED Nurse Note: PATIENT ARRIVED HERE WITH [employer]. [employer] AT BEDSIDE. PLACED PATIENT IN #7. COLLETTE EMT AT BEDSIDE SITTER. SUICIAL PRECAUTION INITIATED.
[2019-02-19 16:07] VITALS: BP 128/70
--- NOTE | 2019-02-19 16:07 | NUR ---
ED Nurse Note: PT BROUGHT IN BY AMBULANCE DUE TO ETOH AND INGESTION OF CYANIDE. PT STATES HE DOES NOT WANT TO HURT HIMSELF BUT WANTS TO . PT CURRENTLY ON 5150 HOLD. RN EXPLAINED TO PT THAT HE IS SAFE IN THE HOSPITAL AND HE DOES NOT NEED TO HURT HIMSELF. AAO X4, FOLLOWS COMMANDS WITH NON LABORED BREATHING. BELONGINGS PLACED ON PSYCH LOCKER #3.
--- NOTE | 2019-02-19 16:15 | NUR ---
ED Nurse Note: ED Nurse Note: Contacted poison control and spoke to Philip. Recommended full toxic screen exam, EKG, CBC, CMP and PT & INR q 6hr for 24hrs and monitor patient for minimum 24hrs and seizure precaution. Dr. Acosta notified and aware. Addendum: 02/19/19 at 1653 by DIANE Amendment undone in EDM - 02/19/19 at 1655 by DIANE Patient reports he took one tablespoon of rat poisoning powder, cyanide with alcohol about 1500. Addendum: 02/19/19 at 1655 by DIANE Patient reports he took one tablespoon of rat poisoning powder, cyanide with alcohol about 1500.
[2019-02-19 16:33] VITALS: BP 85/60
--- NOTE | 2019-02-19 16:34 | NUR ---
ED Nurse Note: BP 85/[address] ATWOOD WAS NOTIFIED. PLACED PT ON TRENDELENBERG POSITION. SITTER COLLETTE AT THE BED SIDE.
[2019-02-19 16:36] LABS: BASOPHILS % (AUTO) 0.9 % (0.0-2.0); EOSINOPHILS % (AUTO) 0.7 % (0.0-3.0); HEMATOCRIT 47.5 % (42.0-52.0); HEMOGLOBIN 15.7 G/DL (14.2-18.0); LYMPHOCYTES % (AUTO) 25.9 % (20.0-45.0); MEAN CORPUSCULAR VOLUME 95 FL (80-99); MONOCYTES % (AUTO) 8.9 % (1.0-10.0); NEUTROPHILS % (AUTO) 63.7 % (45.0-75.0); PLATELET COUNT 118 K/UL (150-450); RED BLOOD COUNT 4.98 M/UL (4.70-6.10); RED CELL DISTRIBUTION WIDTH 14.2 % (11.6-14.8); WHITE BLOOD COUNT 8.2 K/UL (4.8-10.8)
[2019-02-19 16:55] LABS: ALANINE AMINOTRANSFERASE 61 U/L (12-78); ALBUMIN 3.4 G/DL (3.4-5.0); ALBUMIN/GLOBULIN RATIO 0.7 (1.0-2.7); ALKALINE PHOSPHATASE 117 U/L (46-116); ANION GAP 24 mmol/L (5-15); ASPARTATE AMINO TRANSFERASE 106 U/L (15-37); BLOOD UREA NITROGEN 15 mg/dL (7-18); CALCIUM 9.2 MG/DL (8.5-10.1); CARBON DIOXIDE 20 MMOL/L (21-32); CHLORIDE 95 MMOL/L (98-107); CREATININE 1.7 MG/DL (0.55-1.30); SODIUM 140 MMOL/L (136-145)
[2019-02-19 16:57] LABS: POTASSIUM 2.1 MMOL/L (3.5-5.1)
[2019-02-19] MEDS: NS w/KCl 40mEq 1,000 ML IV SCH (17:15)
[2019-02-19] MEDS ORDERED: HYDROcodone/Acetamin 5/325 tab ORAL ONE (17:30)
--- NOTE | 2019-02-19 17:32 | Emergency Room Report ---
History of Present Illness General Chief Complaint: Behavioral Complaint Source: Patient, EMS Present Illness HPI 53-year-old male presents ED for evaluation. Patient sitting outside of the ED. Patient was brought in by EMS earlier but walked out of ED after early after arrival. States he did not want to be evaluated here. Patient told [employer] that he drank alcohol and rat poison 5 hours earlier in order to kill himself. Denies drug use. Denies hearing voices. No other aggravating relieving factors. Denies any other associated symptoms Allergies: Coded Allergies: PENICILLINS (Verified Allergy, Severe, unknown, 11/27/12) PHENOBARBITAL (Verified Allergy, Severe, unknown, 11/27/12) PHENYTOIN SODIUM (Verified Allergy, Severe, unknown, 11/27/12) CODEINE (Unverified Allergy, Unknown, 06/14/17) IBUPROFEN (Unverified Allergy, Unknown, 12/07/16) PHENYTOIN (Unverified Allergy, Unknown, 05/14/16) Patient History Past Medical History: asthma, COPD, renal disease Past Surgical History: none Pertinent Family History: none Social History: Reports: alcohol use, drug use; Denies: smoking Immunizations: UTD Reviewed Nursing Documentation: PMH: Agreed; PSxH: Agreed Nursing Documentation-PMH Past Medical History: No History, Except For Hx Cardiac Problems: Yes Hx Hypertension: Yes Hx Asthma: Yes Hx COPD: Yes Hx Diabetes: Yes Hx Cancer: Yes Hx Dialysis: Yes Hx Seizures: Yes Review of Systems All Other Systems: negative except mentioned in HPI Physical Exam Vital Signs Date Time Temp Pulse Resp B/P (MAP) Pulse Ox O2 Delivery O2 Flow Rate FiO2 02/19/19 15:57 98.1 98 24 134/87 (103) 94 Room Air Sp02 EP Interpretation: reviewed, normal General Appearance: alert, GCS 15, non-toxic, other - intoxicated Head: normocephalic, atraumatic Eyes: bilateral eye normal inspection, bilateral eye PERRL ENT: hearing grossly normal, normal pharynx, no angioedema, normal voice Neck: full range of motion, supple/symm/no masses Respiratory: chest non-tender, lungs clear, normal breath sounds, speaking full sentences Cardiovascular #1: regular rate, rhythm, no edema Cardiovascular #2: 2+ carotid (R), 2+ carotid (L), 2+ radial (R), 2+ radial (L) , 2+ dorsalis pedis (R), 2+ dorsalis pedis (L) Gastrointestinal: normal bowel sounds, non tender, soft, non-distended, no guarding, no rebound Rectal: deferred Genitourinary: normal inspection, no CVA tenderness Musculoskeletal: back normal, gait/station normal, normal range of motion, non- tender Neurologic: other - intoxicated Psychiatric: anxious, other - intoxicated Reflexes: 3+ bicep (R), 3+ bicep (L), 3+ tricep (R), 3+ tricep (L), 3+ knee (R) , 3+ knee (L) Skin: no rash Lymphatic: no adenopathy Medical Decision Making Diagnostic Impression: Primary Impression: Overdose Qualified Codes: T50.902A - Poisoning by unspecified drugs, medicaments and biological substances, intentional self-harm, initial encounter Additional Impressions: Alcohol intoxication Qualified Codes: F10.929 - Alcohol use, unspecified with intoxication, unspecified Hypokalemia ER Course Hospital Course: 53-year-old male presents ED status post alcohol intoxication and reported overdose on rat poison Differential diagnoses include: coagulopathy, psychosis, ETOH Clinical course She placed on stretcher. On awake overnight monitor. After initial history and physical ordered labs, IV fluids, EKG Labs reviewed- K 2.1, hemoglobin/hematocrit stable, ETOH elevated. Coags okay EKG - sinus tachycardia, no acute ischemic changes interpreted by me Discussed with poison control. Recommended 24-hour observation with serial coags to rule out coagulopathy. Patient on 5150 hold. Potassium repleted. Initially hypotensive but improved with IV fluids. One to one observation. Dr claros contacted to evaluate patient case discussed with Dr. Ann and he agreed to accept the patient to his service for further care and support i. I feel this is a highly complex case requiring extensive working including EKG/Rhythm strip, Xray/CT/US, Blood/urine lab work, repeat exams while in ED, and administration of strong opiates/narcotics for pain control, admission to hospital or close patient follow up. Diagnosis - overdose, alcohol intoxication, hypokalemia Admitted to telemetry in serious condition Labs Test 02/19/19 16:15 White Blood Count 8.2 K/UL (4.8-10.8) Red Blood Count 4.98 M/UL (4.70-6.10) Hemoglobin 15.7 G/DL (14.2-18.0) Hematocrit 47.5 % (42.0-52.0) Mean Corpuscular Volume 95 FL (80-99) Mean Corpuscular Hemoglobin 31.5 PG (27.0-31.0) Mean Corpuscular Hemoglobin Concent 33.0 G/DL (32.0-36.0) Red Cell Distribution Width 14.2 % (11.6-14.8) Platelet Count 118 K/UL (150-450) Mean Platelet Volume 9.1 FL (6.5-10.1) Neutrophils (%) (Auto) 63.7 % (45.0-75.0) Lymphocytes (%) (Auto) 25.9 % (20.0-45.0) Monocytes (%) (Auto) 8.9 % (1.0-10.0) Eosinophils (%) (Auto) 0.7 % (0.0-3.0) Basophils (%) (Auto) 0.9 % (0.0-2.0) Prothrombin Time 10.2 SEC (9.30-11.50) Prothromb Time International Ratio 1.0 (0.9-1.1) Activated Partial Thromboplast Time 26 SEC (23-33) Sodium Level 140 MMOL/L (136-145) Potassium Level 2.1 MMOL/L (3.5-5.1) Chloride Level 95 MMOL/L (98-107) Carbon Dioxide Level 20 MMOL/L (21-32) Anion Gap 24 mmol/L (5-15) Blood Urea Nitrogen 15 mg/dL (7-18) Creatinine 1.7 MG/DL (0.55-1.30) Estimat Glomerular Filtration Rate 42.1 mL/min (>60) Glucose Level 114 MG/DL (74-106) Calcium Level 9.2 MG/DL (8.5-10.1) Total Bilirubin 1.0 MG/DL (0.2-1.0) Aspartate Amino Transf (AST/SGOT) 106 U/L (15-37) Alanine Aminotransferase (ALT/SGPT) 61 U/L (12-78) Alkaline Phosphatase 117 U/L (46-116) Total Protein 8.2 G/DL (6.4-8.2) Albumin 3.4 G/DL (3.4-5.0) Globulin 4.8 g/dL Albumin/Globulin Ratio 0.7 (1.0-2.7) Salicylates Level 3.3 ug/mL (2.8-20) Acetaminophen Level < 2 MCG/ML (10-30) Serum Alcohol 293 mg/dL EKG Diagnostic Results Rate: tachycardiac Rhythm: NSR ST Segments: no acute changes ASA given to the pt in ED: No Rhythm Strip Diag. Results EP Interpretation: yes Rhythm: NSR, no PVC's, no ectopy Last Vital Signs Date Time Temp Pulse Resp B/P (MAP) Pulse Ox O2 Delivery O2 Flow Rate FiO2 02/19/19 16:33 98.1 85 18 85/60 96 Room Air Status: improved Disposition: ADMITTED INPATIENT Condition: Serious Referrals: [facility],REFERRING (PCP) Heladio Hayden MD Feb 19, 2019 17:32
--- NOTE | 2019-02-19 17:40 | NUR ---
ED Nurse Note: PT ASKING FOR FOOD. SANDWICH AND JUICE PROVIDED. DR ANGELIC BHATIA FOR PT TO HAVE ORAL INTAKE.
--- NOTE | 2019-02-19 18:50 | NUR ---
ED Nurse Note: DINNER MEAL PROVIDED TO PT.
--- NOTE | 2019-02-19 18:52 | NUR ---
ED Nurse Note: REPORT GIVEN TO DEVIN KITCHEN OF TELEMETRY UNIT. SHE SAID THE SITTER IN THEIR UNIT IS NOT HERE YET. ER CHARGE NURSE NOTIFIED.
--- NOTE | 2019-02-19 19:06 | NUR ---
HAND-OFF: Report given to MAGUE KITCHEN.
--- NOTE | 2019-02-19 19:20 | NUR ---
ED Nurse Note: PT TAKEN SENT TO NEW UNIT WITH MAGUE RN AND [facility]YSON EMT. PT IS AOX4, ON ROOM AIR, NSR, SKIN INTACT WITH NO ACUTE DISTRESS PRESENT. ALL BELONGINGS SENT UP WITH PT.
[2019-02-20] MEDS: NS w/KCl 40mEq 1,000 ML IV SCH (03:00)
[2019-02-20] MEDS ORDERED: GABAPENTIN800 MG ORAL (05:57)
[2019-02-20] MEDS ORDERED: NORVASC10 MG ORAL ×2 (05:57→08:04)
[2019-02-20 08:00] VITALS: BP 166/126
[2019-02-20] MEDS ORDERED: NEURONTIN300 MG ORAL (08:04)
[2019-02-20] MEDS ORDERED: SEROQUEL300 MG ORAL (08:04)
[2019-02-20] MEDS ORDERED: NORCO 10-325 T1 EACH ORAL (08:04)
[2019-02-20] MEDS ORDERED: BENADRYL25 M3 PO (08:04)
[2019-02-20] MEDS ORDERED: REMERON30 M1 ORAL (08:04)
--- NOTE | 2019-02-20 08:14 | NUR ---
NURSE NOTES: pt AOx4. Pt on cardiac catheterization technologist no signs of respiratory or cardiac distress at this time. Bed in lowest position and locked. Sitter at bedside. Call light within reach. Will continue to monitor labs and follow plan of care.
[2019-02-20 08:32] LABS: HEMATOCRIT 39.8 % (42.0-52.0); HEMOGLOBIN 13.1 G/DL (14.2-18.0); MEAN CORPUSCULAR VOLUME 96 FL (80-99); PLATELET COUNT 90 K/UL (150-450); RED BLOOD COUNT 4.14 M/UL (4.70-6.10); RED CELL DISTRIBUTION WIDTH 13.9 % (11.6-14.8); WHITE BLOOD COUNT 7.6 K/UL (4.8-10.8)
[2019-02-20 08:37] LABS: ANION GAP 13 mmol/L (5-15); BLOOD UREA NITROGEN 18 mg/dL (7-18); CALCIUM 8.5 MG/DL (8.5-10.1); CARBON DIOXIDE 26 MMOL/L (21-32); CHLORIDE 96 MMOL/L (98-107); CREATININE 1.1 MG/DL (0.55-1.30); POTASSIUM 2.9 MMOL/L (3.5-5.1); SODIUM 135 MMOL/L (136-145)
[2019-02-20] MEDS ORDERED: Albuterol 90mcg Inhaler 8gm INH PRN (10:00)
[2019-02-20] MEDS: HYDROcodone/Acetamin 10/325 tab ORAL PRN ×3 (10:10→20:44)
[2019-02-20 12:00] VITALS: BP 182/126
--- NOTE | 2019-02-20 12:15 | NUR ---
NURSE NOTES: pt was given NS 250ml bolus. B/p 82/58 asymptomatic. Pt denies dizziness or light headness , nausea or fatigue.
--- NOTE | 2019-02-20 12:28 | NUR ---
CASE MANAGEMENT: INITIAL REVIEW 53 YO M RIRI CARSON CC: CYANIDE INGESTION PMHx: ASTHMA. COPD. RENAL DX. HTN. SI:OVERDOSE. ETOH. T 98.1 HR 98 RR 24 B/P 134/87 SATS 94% ON RA K 2.1 CL 95 CO2 20 CR 1.7 GLU 114 AST 106 ALP 117 U TOX (+THC) IS: NS BOLUS X1 PEPCID IV X1 KCL PO X1 NS W/ KCL IV X1 NORCO PO X1 PATIENT ADMITTED TO TELE 02/19/2019 @ 7723 DCP: PATIENT TO BE DISCHARGED TO APPROPRIATE LOCATION ONCE MEDICALLY CLEARED. PLAN OF CARE: PSYCH CONSULT Addendum: 02/20/19 at 1236 by Araceli Duggan CM INTERQUAL MET
--- NOTE | 2019-02-20 14:31 | NUR ---
NURSE NOTES: reassessed pt b/p after bolus 92/58 hr 99. pt has no complaints of being dizzy or lightheaded.
--- NOTE | 2019-02-20 14:48 | NUR ---
NURSE NOTES: no gabapentin in pixes, will give med once it arrives to unit.
--- NOTE | 2019-02-20 15:50 | History & Physical ---
History and Physical History & Physicial 53-year-old male presents after he drank alcohol and rat poison 5 hours prior to arrival in order to kill himself. Denies drug use. Denies hearing voices. No other aggravating relieving factors. Denies any other associated symptoms. admits to intentional use Allergies: Coded Allergies: PENICILLINS (Verified Allergy, Severe, unknown, 11/27/12) PHENOBARBITAL (Verified Allergy, Severe, unknown, 11/27/12) PHENYTOIN SODIUM (Verified Allergy, Severe, unknown, 11/27/12) CODEINE (Unverified Allergy, Unknown, 06/14/17) IBUPROFEN (Unverified Allergy, Unknown, 12/07/16) PHENYTOIN (Unverified Allergy, Unknown, 05/14/16) Past Medical History: asthma, COPD, renal disease, hypertension, chronic pain, GERD Past Surgical History: none Pertinent Family History: none Social History: Reports: alcohol use, drug use; Denies: smoking Immunizations: UTD Reviewed of systems: PMH: Agreed; PSxH: Agreed physical WDWN NAD clear breath sounds bilaterally without rhonchi or wheeze [id number] without MRG NABS nontender no HSM no CCE nonfocal Laboratory Tests Test 02/19/19 16:15 02/19/19 18:48 02/20/19 08:02 White Blood Count 8.2 K/UL (4.8-10.8) 7.6 K/UL (4.8-10.8) Red Blood Count 4.98 M/UL (4.70-6.10) 4.14 M/UL (4.70-6.10) L Hemoglobin 15.7 G/DL (14.2-18.0) 13.1 G/DL (14.2-18.0) L Hematocrit 47.5 % (42.0-52.0) 39.8 % (42.0-52.0) L Mean Corpuscular Volume 95 FL (80-99) 96 FL (80-99) Mean Corpuscular Hemoglobin 31.5 PG (27.0-31.0) H 31.6 PG (27.0-31.0) H Mean Corpuscular Hemoglobin Concent 33.0 G/DL (32.0-36.0) 32.9 G/DL (32.0-36.0) Red Cell Distribution Width 14.2 % (11.6-14.8) 13.9 % (11.6-14.8) Platelet Count 118 K/UL (150-450) L 90 K/UL (150-450) L Mean Platelet Volume 9.1 FL (6.5-10.1) 8.3 FL (6.5-10.1) Neutrophils (%) (Auto) 63.7 % (45.0-75.0) % (45.0-75.0) Lymphocytes (%) (Auto) 25.9 % (20.0-45.0) % (20.0-45.0) Monocytes (%) (Auto) 8.9 % (1.0-10.0) % (1.0-10.0) Eosinophils (%) (Auto) 0.7 % (0.0-3.0) % (0.0-3.0) Basophils (%) (Auto) 0.9 % (0.0-2.0) % (0.0-2.0) Prothrombin Time 10.2 SEC (9.30-11.50) Prothromb Time International Ratio 1.0 (0.9-1.1) Activated Partial Thromboplast Time 26 SEC (23-33) Sodium Level 140 MMOL/L (136-145) 135 MMOL/L (136-145) L Potassium Level 2.1 MMOL/L (3.5-5.1) *L 2.9 MMOL/L (3.5-5.1) L Chloride Level 95 MMOL/L (98-107) L 96 MMOL/L (98-107) L Carbon Dioxide Level 20 MMOL/L (21-32) L 26 MMOL/L (21-32) Anion Gap 24 mmol/L (5-15) H 13 mmol/L (5-15) Blood Urea Nitrogen 15 mg/dL (7-18) 18 mg/dL (7-18) Creatinine 1.7 MG/DL (0.55-1.30) H 1.1 MG/DL (0.55-1.30) Estimat Glomerular Filtration Rate 42.1 mL/min (>60) > 60 mL/min (>60) Glucose Level 114 MG/DL (74-106) H 142 MG/DL (74-106) H Calcium Level 9.2 MG/DL (8.5-10.1) 8.5 MG/DL (8.5-10.1) Total Bilirubin 1.0 MG/DL (0.2-1.0) Aspartate Amino Transf (AST/SGOT) 106 U/L (15-37) H Alanine Aminotransferase (ALT/SGPT) 61 U/L (12-78) Alkaline Phosphatase 117 U/L (46-116) H Total Protein 8.2 G/DL (6.4-8.2) Albumin 3.4 G/DL (3.4-5.0) Globulin 4.8 g/dL Albumin/Globulin Ratio 0.7 (1.0-2.7) L Salicylates Level 3.3 ug/mL (2.8-20) Acetaminophen Level < 2 MCG/ML (10-30) L Serum Alcohol 293 mg/dL Urine Opiates Screen Negative (NEGATIVE) Urine Barbiturates Screen Negative (NEGATIVE) Phencyclidine (PCP) Screen Negative (NEGATIVE) Urine Amphetamines Screen Negative (NEGATIVE) Urine Benzodiazepines Screen Negative (NEGATIVE) Urine Cocaine Screen Negative (NEGATIVE) Urine Marijuana (THC) Screen Positive (NEGATIVE) H Differential Total Cells Counted 100 Neutrophils % (Manual) 60 % (45-75) Lymphocytes % (Manual) 27 % (20-45) Monocytes % (Manual) 8 % (1-10) Eosinophils % (Manual) 4 % (0-3) H Basophils % (Manual) 1 % (0-2) Band Neutrophils 0 % (0-8) Platelet Estimate Decreased L Platelet Morphology Normal Anisocytosis 1+ IMPRESSION Overdose rat poison Etoh use opiod dependence neuropathy GERD PLAN psych clearance replace K monitor labs dc once cleared impression, plan, and exam edited and reviewed in detail care discussed with Amador Medel MD Feb 20, 2019 15:50
[2019-02-20 16:00] VITALS: BP 161/121
[2019-02-20 17:50] LABS: ANION GAP 13 mmol/L (5-15); BASOPHILS % (AUTO) 1.5 % (0.0-2.0); BLOOD UREA NITROGEN 19 mg/dL (7-18); CALCIUM 9.2 MG/DL (8.5-10.1); CARBON DIOXIDE 29 MMOL/L (21-32); CHLORIDE 97 MMOL/L (98-107); HEMOGLOBIN 13.3 G/DL (14.2-18.0); LYMPHOCYTES % (AUTO) 36.7 % (20.0-45.0); MEAN CORPUSCULAR VOLUME 96 FL (80-99); MONOCYTES % (AUTO) 12.9 % (1.0-10.0); PLATELET COUNT 107 K/UL (150-450); POTASSIUM 3.3 MMOL/L (3.5-5.1); RED BLOOD COUNT 4.17 M/UL (4.70-6.10); RED CELL DISTRIBUTION WIDTH 13.8 % (11.6-14.8); SODIUM 139 MMOL/L (136-145); WHITE BLOOD COUNT 6.2 K/UL (4.8-10.8)
--- NOTE | 2019-02-20 19:49 | NUR ---
HAND-OFF: Report given to Alycia Terrell.
[2019-02-20 20:00] VITALS: BP 143/107
--- NOTE | 2019-02-20 20:00 | NUR ---
NURSE NOTES: received pt from FIDELINA Cortes. pt in bed, no acute distress noted, bed locked and lowest position, side rail up x2, call light and personal belonging within reach. will continue to monitor for any change in condition.
--- NOTE | 2019-02-20 21:45 | Cardiology Report ---
APPROVED REPORT EKG Measurement Heart [id number] Sinus tachycardia Abnormal ECG
--- NOTE | 2019-02-20 23:45 | Consultation ---
DATE OF CONSULTATION: 02/20/2019 CONSULTING PHYSICIAN: Smita Truong M.D. HISTORY OF PRESENT ILLNESS: The patient is a 53-year-old male with a history of alcohol dependence and history of drug use, who is currently homeless. The patient stated that he was intoxicated and started drinking rat poison. As soon as he drank the rat poison, he threw up almost all of it. He stated that he does not know why he took the rat poison in the emergency. He told the ER doctor that he wanted to kill himself. The ER doctor, Dr. Hawkins contacted poison control and they recommended to monitor the patient for 24 hours. When I saw the patient, the patient was eating food. He was very engaged. He did not appear to be anxious nor depressed. The patient denied any suicidal ideation. The patient stated that he needs "help" with housing and the patient is calm and cooperative. No behavior issues. No psychotic or manic symptoms. PAST PSYCHIATRIC HISTORY: He has a history of depression. PAST MEDICAL HISTORY: The patient has history of diabetes mellitus, ankle fracture, cellulitis, pancreatitis, gastroenteritis, back pain, pelvic fracture, COPD, and hypokalemia. ALLERGIES: Codeine, ibuprofen, penicillin, phenobarbital, and phenytoin. SUBSTANCE ABUSE HISTORY: Significant for alcohol use and opiate pain medication. His urine tox was positive for alcohol and marijuana. MENTAL STATUS EXAMINATION: The patient is alert, oriented x4, cooperative, and pleasant. Mood is neutral. Affect is full range. Congruent with mood. Thought process, linear. Thought content, no suicidal or homicidal ideations. ASSESSMENT: AXIS I: Polysubstance dependence. AXIS II: Deferred. AXIS III: As above. AXIS IV: Low. AXIS V: 50. PLAN: 1. The patient is cleared from psychiatric services. The patient may be discharged after meeting with hospice social worker. The patient needs hospice social worker assistance or the keycase assembler for placement. 2. Ordered Valium for alcohol withdrawal. 3. Folate. 4. Thiamine. 5. The patient is not an imminent danger to self or others. Smita Truong M.D. DR: MICHELL JOB#: [id number] CC:
--- NOTE | 2019-02-21 | NUR ---
NURSE NOTES: pt in bed sleeping. no change in condition. no s/s of pain. will continue to monitor.
[2019-02-21 04:00] VITALS: BP 141/99
--- NOTE | 2019-02-21 04:00 | NUR ---
NURSE NOTES: pt sleeping, no change in condition. will continue to monitor for change in condition.
[2019-02-21] MEDS: HYDROcodone/Acetamin 10/325 tab ORAL PRN ×2 (06:02→17:14)
--- NOTE | 2019-02-21 06:45 | NUR ---
NURSE NOTES: pt remains stable, no change in condition. all needs met during my shift. bed locked and lowest position, bedside rail up x2, belonging and call light within reach. will endorse pt to incoming nurse.
--- NOTE | 2019-02-21 07:39 | NUR ---
HAND-OFF: Report given to FIDELINA Lewis.
[2019-02-21 08:00] VITALS: BP 137/100
[2019-02-21] MEDS: Thiamine 100mg tab ORAL SCH (08:18)
--- NOTE | 2019-02-21 08:46 | NUR ---
NURSE NOTES: Agustín Gonzalez, mini shifter RN. Poison control would like to monitor pt's CBC and Plts Q6H. No labs drawn since 18502/20/2019. Notified Dr. Ann and asked about starting Q6H draws for labs
--- NOTE | 2019-02-21 09:49 | NUR ---
RESPIRATORY NOTE: PT FOUND WITH AN INCREASED HR OF 135 BPM . FIDELINA CARSON WAS NOTIFIED AND SAID CHARGE NURSE AND MD ARE AWARE. ALL OTHER VS ARE WNL. NO SOB NOTED. WILL CONTINUE TO MONITOR.
[2019-02-21 09:57] LABS: BASOPHILS % (AUTO) 0.9 % (0.0-2.0); HEMATOCRIT 43.3 % (42.0-52.0); LYMPHOCYTES % (AUTO) 29.8 % (20.0-45.0); MEAN CORPUSCULAR VOLUME 97 FL (80-99); MONOCYTES % (AUTO) 13.9 % (1.0-10.0); NEUTROPHILS % (AUTO) 53.3 % (45.0-75.0); PLATELET COUNT 135 K/UL (150-450); RED BLOOD COUNT 4.47 M/UL (4.70-6.10); RED CELL DISTRIBUTION WIDTH 14.3 % (11.6-14.8); WHITE BLOOD COUNT 6.6 K/UL (4.8-10.8)
--- NOTE | 2019-02-21 11:17 | NUR ---
Social Work This SW received a consult due to patient made an attempt of suicide/to harm self. This SW met with patient who explains he took some RAT poison, stating he was "just having some anxieties about life." Patient denied any current suicidal ideations, was cleared from his 1:1 sitter from Psychiatry (Dr. Carias). This Sw encouraged follow up counseling, while patient explains he has a Psychiatrist who visits his home through the "[facility]." Patient admitted to substance abuse (alcohol), but does not appear motivated for any change at this time (refusing this SW resources and recommendations for substance abuse counseling). Patient remains independent with all ADLs, ambulation and plans to discharge to home to his apartment, stating he has a friend who will assist him with getting his rios to the apartment. Counseling and support provided to patient (patient expressing some anxiety). Appropriate coping mechanisms also discussed with patient. Patient denied having any friends or family to assist with decision making (patient does not have an Advance Directive), while explaining to contact his community case manager, Ina Nguyen ([phone]) through the [facility], as needed.
[2019-02-21 11:31] VITALS: BP 137/103
--- NOTE | 2019-02-21 12:02 | NUR ---
NURSE NOTES: Notified Dr. Ann, Pt HR 144, BP 137/103. Valium given as pt is pacing and states "I am mad, [facility] has my house rios and they wont let me in my house. I could get discharged at anytime and I wont be able to get in my house unless I bust down my door." RN called Whitney, pt's CM at [facility], they are closed after 1700 Sunday and on weekend. Whitney asked if [facility] could call jamal for pt when he is DC, RN notified Whitney [facility] will not. Whitney will call her senior program analyst and get back to us. Addendum: 02/21/19 at 1319 by YAMILETH LUU RN NURSE NOTES: Dr. Ann said to contact Dr. Mast 1233: Notified Dr. Mast of situation. He ordered EKG and Ativan 0.5mg IV PRN Q4 for Anxiety 1306: EKG done. 1318: Notified Dr. Mast of EKG results ST with possible lateral infarct. Vent rate 113, Pt has no symptoms and states he feels "fine"
--- NOTE | 2019-02-21 12:50 | NUR ---
CASE MANAGEMENT:REVIEW 02/21/19 SI: OVERDOSE. SUICIDAL IDEATIONS ALCOHOL, RAT POISON AND THC 98.6 142 21 137/103 98% ON RA HGB-14.0 PLT-135 IS: NORVASC PO QD FOLATE PO QD THIAMINE PO QD SEROQUEL PO QHS REMERON PO QHS VALIUM Q2HRS PRN ANXIETY NEURONTIN PO Q8HR PROTONIX PO QD NORCO PO BID PRN : TELEMETRY UNIT PLAN: CONTINUOS CARDIAC MONITORING PSYCH CONSULT SOCIAL SERVICE CONSULT
[2019-02-21] MEDS ORDERED: LORazepam Inj 2mg/ml 1ml IV PRN (13:00)
--- NOTE | 2019-02-21 13:32 | NUR ---
INSURANCE NO INSURANCE INFORMATION IN BAR UNABLE TO SEND CLINICALS OR REVIEWS
--- NOTE | 2019-02-21 14:24 | Pulmonology Progress Note ---
Assessment/Plan Assessment/Plan Pulmonary Progress Note 53-year-old male presents after he drank alcohol and rat poison 5 hours prior to arrival in order to kill himself. Denies drug use. Denies hearing voices. No other aggravating relieving factors. Denies any other associated symptoms. admits to intentional use Allergies: Coded Allergies: PENICILLINS (Verified Allergy, Severe, unknown, 11/27/12) PHENOBARBITAL (Verified Allergy, Severe, unknown, 11/27/12) PHENYTOIN SODIUM (Verified Allergy, Severe, unknown, 11/27/12) CODEINE (Unverified Allergy, Unknown, 06/14/17) IBUPROFEN (Unverified Allergy, Unknown, 12/07/16) PHENYTOIN (Unverified Allergy, Unknown, 05/14/16) Past Medical History: asthma, COPD, renal disease, hypertension, chronic pain, GERD Past Surgical History: none Pertinent Family History: none Social History: Reports: alcohol use, drug use; Denies: smoking Immunizations: UTD Reviewed of systems: PMH: Agreed; PSxH: Agreed Physical Exam Vital Signs noted WDWN NAD clear breath sounds bilaterally without rhonchi or wheeze [id number] without MRG NABS nontender no HSM no CCE nonfocal Laboratory Tests Test 02/19/19 16:15 02/19/19 18:48 02/20/19 08:02 White Blood Count 8.2 K/UL (4.8-10.8) 7.6 K/UL (4.8-10.8) Red Blood Count 4.98 M/UL (4.70-6.10) 4.14 M/UL (4.70-6.10) L Hemoglobin 15.7 G/DL (14.2-18.0) 13.1 G/DL (14.2-18.0) L Hematocrit 47.5 % (42.0-52.0) 39.8 % (42.0-52.0) L Mean Corpuscular Volume 95 FL (80-99) 96 FL (80-99) Mean Corpuscular Hemoglobin 31.5 PG (27.0-31.0) H 31.6 PG (27.0-31.0) H Mean Corpuscular Hemoglobin Concent 33.0 G/DL (32.0-36.0) 32.9 G/DL (32.0-36.0) Red Cell Distribution Width 14.2 % (11.6-14.8) 13.9 % (11.6-14.8) Platelet Count 118 K/UL (150-450) L 90 K/UL (150-450) L Mean Platelet Volume 9.1 FL (6.5-10.1) 8.3 FL (6.5-10.1) Neutrophils (%) (Auto) 63.7 % (45.0-75.0) % (45.0-75.0) Lymphocytes (%) (Auto) 25.9 % (20.0-45.0) % (20.0-45.0) Monocytes (%) (Auto) 8.9 % (1.0-10.0) % (1.0-10.0) Eosinophils (%) (Auto) 0.7 % (0.0-3.0) % (0.0-3.0) Basophils (%) (Auto) 0.9 % (0.0-2.0) % (0.0-2.0) Prothrombin Time 10.2 SEC (9.30-11.50) Prothromb Time International Ratio 1.0 (0.9-1.1) Activated Partial Thromboplast Time 26 SEC (23-33) Sodium Level 140 MMOL/L (136-145) 135 MMOL/L (136-145) L Potassium Level 2.1 MMOL/L (3.5-5.1) *L 2.9 MMOL/L (3.5-5.1) L Chloride Level 95 MMOL/L (98-107) L 96 MMOL/L (98-107) L Carbon Dioxide Level 20 MMOL/L (21-32) L 26 MMOL/L (21-32) Anion Gap 24 mmol/L (5-15) H 13 mmol/L (5-15) Blood Urea Nitrogen 15 mg/dL (7-18) 18 mg/dL (7-18) Creatinine 1.7 MG/DL (0.55-1.30) H 1.1 MG/DL (0.55-1.30) Estimat Glomerular Filtration Rate 42.1 mL/min (>60) > 60 mL/min (>60) Glucose Level 114 MG/DL (74-106) H 142 MG/DL (74-106) H Calcium Level 9.2 MG/DL (8.5-10.1) 8.5 MG/DL (8.5-10.1) Total Bilirubin 1.0 MG/DL (0.2-1.0) Aspartate Amino Transf (AST/SGOT) 106 U/L (15-37) H Alanine Aminotransferase (ALT/SGPT) 61 U/L (12-78) Alkaline Phosphatase 117 U/L (46-116) H Total Protein 8.2 G/DL (6.4-8.2) Albumin 3.4 G/DL (3.4-5.0) Globulin 4.8 g/dL Albumin/Globulin Ratio 0.7 (1.0-2.7) L Salicylates Level 3.3 ug/mL (2.8-20) Acetaminophen Level < 2 MCG/ML (10-30) L Serum Alcohol 293 mg/dL Urine Opiates Screen Negative (NEGATIVE) Urine Barbiturates Screen Negative (NEGATIVE) Phencyclidine (PCP) Screen Negative (NEGATIVE) Urine Amphetamines Screen Negative (NEGATIVE) Urine Benzodiazepines Screen Negative (NEGATIVE) Urine Cocaine Screen Negative (NEGATIVE) Urine Marijuana (THC) Screen Positive (NEGATIVE) H Differential Total Cells Counted 100 Neutrophils % (Manual) 60 % (45-75) Lymphocytes % (Manual) 27 % (20-45) Monocytes % (Manual) 8 % (1-10) Eosinophils % (Manual) 4 % (0-3) H Basophils % (Manual) 1 % (0-2) Band Neutrophils 0 % (0-8) Platelet Estimate Decreased L Platelet Morphology Normal Anisocytosis 1+ IMPRESSION Overdose rat poison Etoh use opiod dependence neuropathy GERD PLAN psych clearance DC planning monitor labs dc once cleared impression, plan, and exam edited and reviewed in detail care discussed with RN Subjective ROS Limited/Unobtainable: No Allergies: Coded Allergies: PENICILLINS (Verified Allergy, Severe, unknown, 11/27/12) PHENOBARBITAL (Verified Allergy, Severe, unknown, 11/27/12) PHENYTOIN SODIUM (Verified Allergy, Severe, unknown, 11/27/12) CODEINE (Unverified Allergy, Unknown, 06/14/17) IBUPROFEN (Unverified Allergy, Unknown, 12/07/16) PHENYTOIN (Unverified Allergy, Unknown, 05/14/16) Objective Last 24 Hour Vital Signs Date Time Temp Pulse Resp B/P (MAP) Pulse Ox O2 Delivery O2 Flow Rate FiO2 02/21/19 12:11 133 02/21/19 11:31 98.6 142 21 137/103 (114) 98 02/21/19 09:49 135 20 98 Room Air 21 02/21/19 08:39 Room Air 02/21/19 08:19 128 137/100 02/21/19 08:00 98.0 128 21 137/100 (112) 97 02/21/19 07:39 128 02/21/19 04:00 98.1 98 20 141/99 (113) 96 02/21/19 04:00 65 02/21/19 00:00 93 02/20/19 21:00 Room Air 02/20/19 20:00 97.3 105 20 143/107 (119) 98 02/20/19 20:00 110 02/20/19 16:40 161/121 02/20/19 16:00 104 02/20/19 16:00 98.2 96 20 161/121 (134) 98 Intake and Output 02/20/19 02/21/19 19:00 07:00 Intake Total 1080 ml Balance 1080 ml Intake Oral 1080 ml # Voids 6 3 # Bowel Movements 1 Laboratory Tests 02/20/19 17:10: White Blood Count 6.2, Red Blood Count 4.17L, Hemoglobin 13.3L, Hematocrit 40.0L , Mean Corpuscular Volume 96, Mean Corpuscular Hemoglobin 31.8H, Mean Corpuscular Hemoglobin Concent 33.2, Red Cell Distribution Width 13.8, Platelet Count 107L, Mean Platelet Volume 8.6, Neutrophils (%) (Auto) 47.0, Lymphocytes ( %) (Auto) 36.7, Monocytes (%) (Auto) 12.9H, Eosinophils (%) (Auto) 2.0, Basophils (%) (Auto) 1.5, Sodium Level 139, Potassium Level 3.3L, Chloride Level 97L, Carbon Dioxide Level 29, Anion Gap 13, Blood Urea Nitrogen 19H, Creatinine 1.0, Estimat Glomerular Filtration Rate > 60, Glucose Level 99, Calcium Level 9.2 02/21/19 09:35: White Blood Count 6.6, Red Blood Count 4.47L, Hemoglobin 14.0L, Hematocrit 43.3 , Mean Corpuscular Volume 97, Mean Corpuscular Hemoglobin 31.3H, Mean Corpuscular Hemoglobin Concent 32.3, Red Cell Distribution Width 14.3, Platelet Count 135L, Mean Platelet Volume 9.1, Neutrophils (%) (Auto) 53.3, Lymphocytes ( %) (Auto) 29.8, Monocytes (%) (Auto) 13.9H, Eosinophils (%) (Auto) 2.0, Basophils (%) (Auto) 0.9 Current Medications Medications (Trade) Dose Ordered Sig/Noel Route PRN Reason Start Time Stop Time Status Last Admin Dose Admin Acetaminophen (Tylenol) 650 mg Q4H PRN ORAL Mild Pain/Temp > 100.5 02/20/19 07:45 03/22/19 07:44 Acetaminophen/ Hydrocodone Bitart ([place] 10325) 1 tab BIDPRN PRN ORAL For Pain 4-10 02/20/19 09:45 02/27/19 09:44 02/21/19 06:02 Al Hydroxide/Mg Hydroxide (Mylanta) 30 ml Q4H PRN ORAL HEARTBURN 02/20/19 07:45 03/22/19 07:44 Albuterol Sulfate (Proventil MDI) 2 puff Q4H PRN INH Shortness of Breath 02/20/19 10:00 03/22/19 09:59 Amlodipine Besylate (Norvasc) 10 mg DAILY ORAL 02/21/19 09:00 03/23/19 08:59 02/21/19 08:19 Clonidine HCl (Catapres Tab) 0.1 mg Q4H PRN ORAL For High Blood Pressure 02/20/19 10:45 03/22/19 10:44 02/20/19 16:40 Diazepam (Valium) 10 mg Q2H PRN ORAL For Anxiety 02/20/19 18:48 02/27/19 18:47 02/21/19 11:42 Diphenhydramine HCl (Benadryl) 50 mg Q6H PRN ORAL seasonal allergies 02/20/19 11:15 03/22/19 11:14 02/21/19 11:42 Folic Acid (Folate) 1 mg DAILY ORAL 02/21/19 09:00 03/23/19 08:59 02/21/19 08:18 Gabapentin (Neurontin) 800 mg Q8HR ORAL 02/20/19 14:00 03/22/19 13:59 02/21/19 14:09 Lorazepam (Ativan 2mg/ml 1ml) 0.5 mg Q4H PRN IV agitation 02/21/19 13:00 02/28/19 12:59 Mirtazapine (Remeron) 30 mg BEDTIME ORAL 02/20/19 21:00 03/22/19 20:59 02/20/19 20:38 Pantoprazole (Protonix) 40 mg DAILY ORAL 02/20/19 09:00 03/22/19 08:59 02/21/19 08:18 Quetiapine Fumarate (SEROquel) 300 mg BEDTIME ORAL 02/20/19 21:00 03/22/19 20:59 02/20/19 20:38 Thiamine HCl (Vitamin B1) 100 mg DAILY ORAL 02/21/19 09:00 03/23/19 08:59 02/21/19 08:18 Zaid Mast MD Feb 21, 2019 14:24
--- NOTE | 2019-02-21 14:44 | NUR ---
NURSE NOTES: Pt's IV infiltrated. IV removed intact. Notified Dr. Mast. Okay to change Ativan to PO
[2019-02-21] MEDS ORDERED: LORazepam 0.5mg tab ORAL PRN (14:45)
[2019-02-21 15:54] VITALS: BP 159/123
--- NOTE | 2019-02-21 16:05 | NUR ---
NURSE NOTES: Spoke with Corbin from Poison control. Poison control need to monitor INR, not CBC. Addendum: 02/21/19 at 1702 by YAMILETH LUU RN NURSE NOTES: INR ordered and lab called
[2019-02-21 16:10] LABS: BASOPHILS % (AUTO) 1.5 % (0.0-2.0); EOSINOPHILS % (AUTO) 1.5 % (0.0-3.0); HEMATOCRIT 37.2 % (42.0-52.0); HEMOGLOBIN 12.5 G/DL (14.2-18.0); LYMPHOCYTES % (AUTO) 32.7 % (20.0-45.0); MEAN CORPUSCULAR VOLUME 95 FL (80-99); MONOCYTES % (AUTO) 14.1 % (1.0-10.0); NEUTROPHILS % (AUTO) 50.1 % (45.0-75.0); PLATELET COUNT 127 K/UL (150-450); RED BLOOD COUNT 3.92 M/UL (4.70-6.10); RED CELL DISTRIBUTION WIDTH 13.7 % (11.6-14.8); WHITE BLOOD COUNT 6.9 K/UL (4.8-10.8)
[2019-02-21] MEDS ORDERED: HydrALAZINE 25mg tab ORAL PRN (16:30)
--- NOTE | 2019-02-21 16:30 | NUR ---
NURSE NOTES: 1600 BP 159/123 HR 120. Gave Clonidine 0.1 mg per PRN order. 1625: Notified Dr. Mast. Dr. Mast ordered Hyrdalaze 25mg PO Q6H for SBP >180, Metoprolol 12.5mg CLEO BID PO to be started 02/21/2019 @1800, ordered CBC, BMP, INR for 02/22/2019 0400 1705: Rechecked BP 146/104 HR 109
[2019-02-21 16:52] LABS: INR 1.1 (0.9-1.1)
[2019-02-21] MEDS: Metoprolol Tartrate 12.5mg TAB ORAL SCH (17:12)
--- NOTE | 2019-02-21 17:37 | NUR ---
NURSE NOTES: INR 1.1 report to Poison control
[2019-02-21 18:56] VITALS: BP 122/83
--- NOTE | 2019-02-21 19:24 | NUR ---
HAND-OFF: Report given to FIDELINA Gonzalez.
--- NOTE | 2019-02-21 19:30 | NUR ---
NURSE NOTES: Received pt from day shift nurse, pt in bed stable, no acute distress noted. no c/o pain at this moment. pt refusing IV access insertion, Dr Ann aware, education reinforced about importance of having IV access, pt still refused the IV access insertion.bed locked and lowest position, bedside rail up x2, call light and personal belonging, within reach. will continue to monitor pt for any change in condition.
[2019-02-21 20:00] VITALS: BP 133/97
[2019-02-22] VITALS: BP 131/88
--- NOTE | 2019-02-22 | NUR ---
NURSE NOTES: pt in bed, no acute distress noted, no change in condition. will continue to monitor for any change in condition.
--- NOTE | 2019-02-22 01:45 | Progress Note ---
DATE: 02/21/2019 SUBJECTIVE: The patient continues to be anxious. He has poor insight into his substance use disorder. He has been taking his Remeron and Seroquel. Continues to have anxiety. Continues to have med-seeking behavior and has been taking Valium. This patient has poor insight into drinking alcohol. MENTAL STATUS EXAMINATION: He is oriented times self, place, and situation. Mood is anxious. Affect is constricted, congruent with mood. Thought process is concrete. Thought content, no suicidal or homicidal ideations. ASSESSMENT: 1. Alcohol abuse. 2. Depression. 3. Anxiety. PLAN: 1. The patient will be continued on Remeron. 2. The patient will be continued on Seroquel. 3. Provide the patient with reality orientation and supportive therapy. Smita Truong M.D. DR: JOSIAH JOB#: [id number] CC:
--- NOTE | 2019-02-22 03:16 | NUR ---
HAND-OFF: Report given to FIDELINA Dempsey.pt stable.
--- NOTE | 2019-02-22 03:30 | NUR ---
NURSE NOTES: Pt received from FIDELINA Gonzalez currently resting in bed, sleeping comfortably with no acute s/s of distress noted. IV site asymptomatic and patent. Bed in lowest position, call light and belongings within reach.
[2019-02-22 04:00] VITALS: BP 124/86
[2019-02-22] MEDS: HYDROcodone/Acetamin 10/325 tab ORAL PRN ×2 (06:34→18:47)
--- NOTE | 2019-02-22 07:07 | NUR ---
HAND-OFF: Report given to FIDELINA Neely. No acute s/s of distress noted.
--- NOTE | 2019-02-22 07:22 | NUR ---
NURSE NOTES: Received report from FIDELINA Dempsey. Patient is resting in bed, in stable condition. No s/sx of SOB, breathing is even and unlabored, room air. Denies any presence of pain or discomfort at this time. Bed is in lowest position, brakes engaged. Call light is kept within easy reach. Will continue to monitor patient.
[2019-02-22 07:34] LABS: BASOPHILS % (AUTO) 1.3 % (0.0-2.0); EOSINOPHILS % (AUTO) 2.5 % (0.0-3.0); HEMOGLOBIN 12.7 G/DL (14.2-18.0); LYMPHOCYTES % (AUTO) 45.8 % (20.0-45.0); MEAN CORPUSCULAR VOLUME 97 FL (80-99); MONOCYTES % (AUTO) 13.5 % (1.0-10.0); PLATELET COUNT 141 K/UL (150-450); RED BLOOD COUNT 4.03 M/UL (4.70-6.10); RED CELL DISTRIBUTION WIDTH 14.4 % (11.6-14.8); WHITE BLOOD COUNT 5.5 K/UL (4.8-10.8)
[2019-02-22 07:53] VITALS: BP 137/89
[2019-02-22] MEDS: Metoprolol Tartrate 12.5mg TAB ORAL SCH ×2 (08:18→20:56)
[2019-02-22] MEDS: Thiamine 100mg tab ORAL SCH (08:18)
[2019-02-22 08:33] LABS: ANION GAP 14 mmol/L (5-15); BLOOD UREA NITROGEN 22 mg/dL (7-18); CALCIUM 9.5 MG/DL (8.5-10.1); CARBON DIOXIDE 25 MMOL/L (21-32); CHLORIDE 103 MMOL/L (98-107); CREATININE 1.1 MG/DL (0.55-1.30); POTASSIUM 3.4 MMOL/L (3.5-5.1); SODIUM 142 MMOL/L (136-145)
--- NOTE | 2019-02-22 09:09 | General Progress Note ---
Assessment/Plan Assessment/Plan: IMPRESSION Overdose rat poison Etoh use opiod dependence neuropathy GERD thrombocytopenia PLAN psych clearance transfer to psych impression, plan, and exam edited and reviewed in detail care discussed with RN Subjective Allergies: Coded Allergies: PENICILLINS (Verified Allergy, Severe, unknown, 11/27/12) PHENOBARBITAL (Verified Allergy, Severe, unknown, 11/27/12) PHENYTOIN SODIUM (Verified Allergy, Severe, unknown, 11/27/12) CODEINE (Unverified Allergy, Unknown, 06/14/17) IBUPROFEN (Unverified Allergy, Unknown, 12/07/16) PHENYTOIN (Unverified Allergy, Unknown, 05/14/16) Subjective care noted and discussed with psych Objective Last 24 Hour Vital Signs Date Time Temp Pulse Resp B/P (MAP) Pulse Ox O2 Delivery O2 Flow Rate FiO2 02/22/19 09:00 Room Air 02/22/19 08:18 132 137/89 02/22/19 08:18 132 137/89 02/22/19 08:00 132 02/22/19 07:53 98.2 132 18 137/89 (105) 95 02/22/19 04:00 92 02/22/19 04:00 97.7 97 18 124/86 (99) 95 02/22/19 00:00 125 02/22/19 00:00 97.5 100 18 131/88 (102) 96 02/21/19 21:00 Room Air 02/21/19 20:06 110 20 98 Room Air 21 02/21/19 20:00 98.8 98 19 133/97 (109) 98 02/21/19 20:00 104 02/21/19 18:56 86 122/83 (96) 97 02/21/19 17:44 97.9 02/21/19 17:12 109 146/104 02/21/19 16:11 159/123 02/21/19 15:54 97.9 120 18 159/123 (135) 97 02/21/19 15:31 120 02/21/19 12:11 133 02/21/19 11:31 98.6 142 21 137/103 (114) 98 02/21/19 09:49 135 20 98 Room Air 21 Intake and Output 02/21/19 02/22/19 19:00 07:00 Intake Total 1200 ml Balance 1200 ml Intake Oral 1200 ml # Voids 4 8 # Bowel Movements 1 Laboratory Tests 02/21/19 09:35: White Blood Count 6.6, Red Blood Count 4.47L, Hemoglobin 14.0L, Hematocrit 43.3 , Mean Corpuscular Volume 97, Mean Corpuscular Hemoglobin 31.3H, Mean Corpuscular Hemoglobin Concent 32.3, Red Cell Distribution Width 14.3, Platelet Count 135L, Mean Platelet Volume 9.1, Neutrophils (%) (Auto) 53.3, Lymphocytes ( %) (Auto) 29.8, Monocytes (%) (Auto) 13.9H, Eosinophils (%) (Auto) 2.0, Basophils (%) (Auto) 0.9 02/21/19 15:30: White Blood Count 6.9, Red Blood Count 3.92L, Hemoglobin 12.5L, Hematocrit 37.2L , Mean Corpuscular Volume 95, Mean Corpuscular Hemoglobin 31.8H, Mean Corpuscular Hemoglobin Concent 33.5, Red Cell Distribution Width 13.7, Platelet Count 127L, Mean Platelet Volume 7.7, Neutrophils (%) (Auto) 50.1, Lymphocytes ( %) (Auto) 32.7, Monocytes (%) (Auto) 14.1H, Eosinophils (%) (Auto) 1.5, Basophils (%) (Auto) 1.5 02/21/19 16:30: Prothrombin Time 11.2, Prothromb Time International Ratio 1.1 02/22/19 06:38: White Blood Count 5.5, Red Blood Count 4.03L, Hemoglobin 12.7L, Hematocrit 39.0L , Mean Corpuscular Volume 97, Mean Corpuscular Hemoglobin 31.4H, Mean Corpuscular Hemoglobin Concent 32.5, Red Cell Distribution Width 14.4, Platelet Count 141L, Mean Platelet Volume 7.5, Neutrophils (%) (Auto) 37.0L, Lymphocytes (%) (Auto) 45.8H, Monocytes (%) (Auto) 13.5H, Eosinophils (%) (Auto) 2.5, Basophils (%) (Auto) 1.3, Prothrombin Time 10.7, Prothromb Time International Ratio 1.0, Sodium Level 142, Potassium Level 3.4L, Chloride Level 103, Carbon Dioxide Level 25, Anion Gap 14, Blood Urea Nitrogen 22H, Creatinine 1.1, Estimat Glomerular Filtration Rate > 60, Glucose Level 127H, Calcium Level 9.5 Height (Feet): 5 Height (Inches): 10.00 Weight (Pounds): 185 Objective WDWN NAD clear breath sounds bilaterally without rhonchi or wheeze [id number] without MRG NABS nontender no HSM no CCE nonfocal Amador Ann MD Feb 22, 2019 09:09
[2019-02-22] MEDS ORDERED: Tetrahydrozoline 0.05% Opth 15ml BOTH EYES PRN (09:45)
--- NOTE | 2019-02-22 09:51 | NUR ---
NURSE NOTES: Dr. Ann seen and examined patient at bedside. Made aware of patient's potassium level of 3.4, MD acknowledged and ordered potassium chlorided 20 mEq PO x 1. Also made aware of patient's c/o right eye dryness, MD acknowledged and ordered Visine one drop right eye PRN for dryness. Orders entered, noted, and carried out. Will continue to monitor patient.
[2019-02-22] MEDS: Tetrahydrozoline 0.05% Opth 15ml RIGHT EYE PRN ×2 (10:56→18:43)
[2019-02-22 12:00] VITALS: BP 146/109
--- NOTE | 2019-02-22 12:18 | NUR ---
NURSE NOTES: Clarified with Dr. Truong regarding notes from 02/20/19, "Patient is cleared from psychiatric services." Dr. Truong acknowledged and informed that she made Dr. Ann aware as well. Charge nurse made aware. Noted. Will continue to monitor patient.
--- NOTE | 2019-02-22 14:00 | NUR ---
CASE MANAGEMENT: REVIEW SI: ETOH ABUSE . POLYSUBSTANCE DEPENDENCE . OVERDOSE RAT POISON T 97.8 HR 132 RR 18 BP 146/109 SAT 96% ROOM AIR K 3.4 BUN 22 IS: NORVASC PO QD SEROQUEL PO QHS REMERON PO QHS FOLIC ACID PO QD VIT B1 PO QD ATIVAN PO Q4HR PRN DIAZEPAM PO Q2HR PRN TELEMETRY UNIT STATUS DCP: PATIENT REPORTS HOMELESSNESS
[2019-02-22 16:00] VITALS: BP 138/100
--- NOTE | 2019-02-22 19:20 | NUR ---
NURSE NOTES: Received pt and report from FIDELINA Neely. Observed pt resting in bed with both eyes open and watching television. Pt is A/Ox4. monitoring tech is in placed, IV site intact, asymptomatic, and patent. Bed is in the lowest position and locked. Call light within reach. No signs/symptoms of acute distress noted at this time. Will continue of plan of care. Addendum: 02/22/19 at 2238 by Jory Galan Mai, RN Pt has no IV access. Dr. Ann is aware.
--- NOTE | 2019-02-22 19:30 | NUR ---
HAND-OFF: Report given to FIDELINA Pelaez.
[2019-02-22 20:00] VITALS: BP 154/115
[2019-02-23] VITALS: BP 145/101
[2019-02-23 04:00] VITALS: BP 147/95
[2019-02-23] MEDS: HYDROcodone/Acetamin 10/325 tab ORAL PRN ×2 (07:06→19:44)
--- NOTE | 2019-02-23 07:10 | General Progress Note ---
Assessment/Plan Assessment/Plan: IMPRESSION Overdose rat poison Etoh use opiod dependence neuropathy GERD thrombocytopenia PLAN psych clearance transfer to psych medically stable impression, plan, and exam edited and reviewed in detail care discussed with RN Subjective Allergies: Coded Allergies: PENICILLINS (Verified Allergy, Severe, unknown, 11/27/12) PHENOBARBITAL (Verified Allergy, Severe, unknown, 11/27/12) PHENYTOIN SODIUM (Verified Allergy, Severe, unknown, 11/27/12) CODEINE (Unverified Allergy, Unknown, 06/14/17) IBUPROFEN (Unverified Allergy, Unknown, 12/07/16) PHENYTOIN (Unverified Allergy, Unknown, 05/14/16) Subjective care noted and discussed calm Objective Last 24 Hour Vital Signs Date Time Temp Pulse Resp B/P (MAP) Pulse Ox O2 Delivery O2 Flow Rate FiO2 02/23/19 00:00 98.3 107 19 145/101 (116) 95 02/23/19 00:00 107 02/22/19 21:01 154/115 02/22/19 21:00 Room Air 02/22/19 20:56 110 154/115 02/22/19 20:00 98.5 110 20 154/115 (128) 96 02/22/19 20:00 103 02/22/19 19:52 109 20 98 Room Air 21 02/22/19 16:00 106 02/22/19 16:00 98.2 100 18 138/100 (113) 95 02/22/19 12:00 97.8 98 18 146/109 (121) 96 02/22/19 12:00 91 02/22/19 09:00 Room Air 02/22/19 08:18 132 137/89 02/22/19 08:18 132 137/89 02/22/19 08:00 132 02/22/19 07:53 98.2 132 18 137/89 (105) 95 Intake and Output 02/22/19 02/23/19 19:00 07:00 Intake Total 1240 ml Balance 1240 ml Intake Oral 1240 ml # Voids 5 4 Height (Feet): 5 Height (Inches): 10.00 Weight (Pounds): 185 Objective WDWN NAD clear breath sounds bilaterally without rhonchi or wheeze [id number] without MRG NABS nontender no HSM no CCE nonfocal Amador Ann MD Feb 23, 2019 07:10
--- NOTE | 2019-02-23 07:30 | NUR ---
NURSE NOTES: Received report from FIDELINA Pelaez. Patient is sitting on the chair, eating his breakfast, in stable condition. No signs and symptoms of acute distress noted at this time. Breathing is even and unlabored in room air. Denies any pain or discomfort at this time. Bed is in lowest position, brakes engaged and two side rails up. Call light and bed side table within reach. Will continue plan of care.
--- NOTE | 2019-02-23 07:45 | Progress Note ---
DATE: 02/22/2019 NOTE: "POOR AUDIO QUALITY" SUBJECTIVE: The patient is in no acute distress. He has episodes of anxiety. No suicidal or homicidal ideations. The patient is not suicidal nor homicidal. The patient stated that he overdosed on rat poison because he was intoxicated and feeling down, however, he is with homelessness. MENTAL STATUS EXAMINATION: The patient is alert and oriented x3. Mood is anxious. Affect is constricted, congruent with mood. Thought process is concrete. Thought content, no suicidal or homicidal ideations. ASSESSMENT: 1. Polysubstance dependence. 2. Anxiety disorder. PLAN: The patient will be continued on current medications. The patient is not an imminent danger to self or others. Smita Truong M.D. DR: Karen JOB#: [id number] CC: PAWEL
[2019-02-23 08:00] VITALS: BP 139/109
--- NOTE | 2019-02-23 08:10 | NUR ---
HAND-OFF: Report given to FIDELINA Richey.
[2019-02-23] MEDS: Thiamine 100mg tab ORAL SCH (08:58)
[2019-02-23] MEDS: Metoprolol Tartrate 12.5mg TAB ORAL SCH ×2 (09:05→21:33)
[2019-02-23] MEDS: Tetrahydrozoline 0.05% Opth 15ml RIGHT EYE PRN (10:04)
--- NOTE | 2019-02-23 10:52 | NUR ---
HAND-OFF: Report given to FIDELINA Rowe.
--- NOTE | 2019-02-23 10:54 | NUR ---
NURSE NOTES: Received report from FIDELINA Larkin. The patient is resting on the bed without acute distress or shortness of breath. The patient's bed in the lowest position, call light in reach, and fall and aspiration precaution reinforced. No IV due to the patient's refusal and Dr. Ann was notified for the refusal. Will continue plan of care.
[2019-02-23 12:00] VITALS: BP 130/93
[2019-02-23 16:00] VITALS: BP 147/96
--- NOTE | 2019-02-23 19:10 | NUR ---
NURSE NOTES: Received pt and report from FIDELINA Rowe. Observed pt resting in bed with both eyes open and watching television. Pt is A/Ox4. telemetry monitor is in placed, pt has no IV access; Dr. Ann is aware. Bed is in the lowest position and locked. Call light within reach. No signs/symptoms of acute distress noted at this time. Will continue of plan of care
--- NOTE | 2019-02-23 19:20 | NUR ---
HAND-OFF: Report given to FIDELINA Pelaez. The patient denies of acute distress or shortness of breath. The patient's bed in the lowest position, call light in reach, and fall and aspiration precaution reinforced. Endorsed plan of care.
[2019-02-23 20:00] VITALS: BP 143/93
[2019-02-24] VITALS: BP 136/85
[2019-02-24 04:00] VITALS: BP 133/82
--- NOTE | 2019-02-24 07:28 | NUR ---
HAND-OFF: Report given to FIDELINA Cortes.
--- NOTE | 2019-02-24 07:57 | NUR ---
pt sitting up in chair having breakfast. Pt on viscosity inspector no signs of cardiac or respiratory distress. Pt calm, AOx4. Pt has no iv site doct is aware. Bed in locked and in lowest position. Call light within reach.
--- NOTE | 2019-02-24 08:02 | General Progress Note ---
Assessment/Plan Assessment/Plan: IMPRESSION Overdose rat poison Etoh use opiod dependence neuropathy GERD thrombocytopenia PLAN psych clearance transfer to psych medically stable impression, plan, and exam edited and reviewed in detail care discussed with RN Subjective Allergies: Coded Allergies: PENICILLINS (Verified Allergy, Severe, unknown, 11/27/12) PHENOBARBITAL (Verified Allergy, Severe, unknown, 11/27/12) PHENYTOIN SODIUM (Verified Allergy, Severe, unknown, 11/27/12) CODEINE (Unverified Allergy, Unknown, 06/14/17) IBUPROFEN (Unverified Allergy, Unknown, 12/07/16) PHENYTOIN (Unverified Allergy, Unknown, 05/14/16) Subjective care noted and discussed calm Objective Last 24 Hour Vital Signs Date Time Temp Pulse Resp B/P (MAP) Pulse Ox O2 Delivery O2 Flow Rate FiO2 02/24/19 07:12 78 16 96 Room Air 21 02/24/19 04:00 98.8 96 20 133/82 (99) 93 02/24/19 04:00 96 02/24/19 00:00 98.6 92 19 136/85 (102) 92 02/24/19 00:00 104 02/23/19 21:33 99 143/93 02/23/19 21:00 Room Air 02/23/19 20:07 103 20 96 Room Air 21 02/23/19 20:00 98.8 99 19 143/93 (110) 92 02/23/19 20:00 109 02/23/19 16:00 98.3 92 20 147/96 (113) 95 02/23/19 16:00 97 02/23/19 12:00 98.5 101 20 130/93 (105) 95 02/23/19 12:00 96 02/23/19 09:05 111 139/109 02/23/19 09:00 Room Air 02/23/19 08:59 111 22 98 Room Air 21 02/23/19 08:58 113 139/109 Intake and Output 02/23/19 02/24/19 19:00 07:00 Intake Total 1540 ml 780 ml Balance 1540 ml 780 ml Intake Oral 1540 ml 780 ml # Voids 6 3 Height (Feet): 5 Height (Inches): 10.00 Weight (Pounds): 185 Objective WDWN NAD clear breath sounds bilaterally without rhonchi or wheeze [id number] without MRG NABS nontender no HSM no CCE nonfocal Amador Ann MD Feb 24, 2019 08:02
[2019-02-24 08:27] VITALS: BP 156/107
[2019-02-24] MEDS: Tetrahydrozoline 0.05% Opth 15ml RIGHT EYE PRN (08:39)
[2019-02-24] MEDS: HYDROcodone/Acetamin 10/325 tab ORAL PRN (08:41)
[2019-02-24] MEDS: Thiamine 100mg tab ORAL SCH (08:41)
[2019-02-24] MEDS: Metoprolol Tartrate 12.5mg TAB ORAL SCH (08:41)
--- NOTE | 2019-02-24 10:21 | NUR ---
NURSE NOTES: Contacted Dr. Truong. States no prescription for discharge.
--- NOTE | 2019-02-24 11:35 | NUR ---
Spoke with patient. Patient states he lives in [address] [place] [address]. Patient states he has rios and was shown to charge nurse. Notified Annabel, Case management, and Dr. Truong. They are aware. Dr. Truong states patient is cleared to be discharge to home.
[2019-02-24 12:00] VITALS: BP 147/104
--- NOTE | 2019-02-24 12:51 | NUR ---
INSURANCE UPDATED CLINICALS and REVIEW HAVE BEEN FAXED TO: ANGIE GUNN PLEASE FAX THE REVIEW AND CLINICAL TO FX: [phone] PH: [phone]
--- NOTE | 2019-02-25 09:55 | Discharge Summary ---
Discharge Summary Discharge Summary _ DATE OF ADMISSION: 02/19/2019 DATE OF DISCHARGE: 02/24/2019 DISCHARGED BY: Dr. Ann REASON FOR ADMISSION: 53 years old male with past medical history of COPD asthma,, renal disease, hypertension, was sitting outside of the emergency department. Patient initially was brought by EMS , but walked out of the ED soon after arrival. Patient initially declined to be evaluated . Patient told [employer] that he was drinking alcohol and rat poison 5 hours earlier in order to kill himself. He denied drug use He denies hearing voices. Upon evaluation patient was slightly tachycardic and tachypneic , but pulse oximetry was stable on room air. Laboratory work-up revealed no leukocytosis, stable hemoglobin and hematocrit. Potassium 2.1 . BUN 15 creatinine 1.7. Glucose 114. AST 106, ALT 61. Albumin 3.4 9. EKG revealed sinus tachycardia, no acute ischemic changes. Urine toxicology screen was positive for marijuana. Serum alcohol level 293. Salicylate and Tylenol level negative. Emergency room physician discussed with the [facility], who recommended 24-hour observation with serial coagulation to rule out coagulopathy. Sitter was provided for safety. Patient started on replacement of potassium. Patient initially was hypotensive, but improved with IV fluids. Psychiatrist consulted to evaluate patient. Patient subsequently was admitted to telemetry floor for further evaluation and management. CONSULTANTS: psychiatrist [facility] COURSE: Patient admitted to telemetry floor. Sitter provided for safety. Daily INR remained stable. Patient initially received IV hydration. Folate and thiamine initiated. Valium was on board for alcohol withdrawal as needed. Potassium was further replaced. Potassium 3.4 prior to discharge. Psychiatrist seen and evaluated patient. Psychiatric medication regimen was initiated with Remeron and Seroquel. Reality orientation and supportive therapy provided. Per psychiatrist patient had a polysubstance dependency. Sitter was discontinued. Per psychiatrist, patient was not at imminent danger to self or other. Psychiatrist recommended social work msw assistance for placement . Psychiatrist cleared patient for discharge. Renal parameters and electrolytes were closely monitored. Creatinine from 1.7 down to 1.1. Acute kidney injury was likely precipitated by rat poison and resolved with IV hydration. Supplemental oxygen provided as needed to keep pulse oximetry above 92%. GI prophylaxis provided. Blood pressure was managed with calcium channel elba and beta-elab. Hydralazine was on board as needed. Thiamine and folic acid continued. Patient noted to have a thrombocytopenia on admission. Platelet counts were closely monitored and prior to discharge 141. photofinishing laboratory worker met with patient. Patient denied current suicidal ideations. Patient stated that he had a psychiatrist whom he visits at [facility]. Patient did admit to substance abuse/alcohol , but not appeared to be motivated for any changes. He refused social work msw resources and recommendation for substance abuse counseling. Patient remained independent with all activities of daily living and plan to be discharged to his apartment. Patient subsequently was discharged to his apartment ( he provided address and showed the rios to his apartment) . FINAL DIAGNOSES: Overdose with rat poison Severe hypokalemia -corrected Alcohol use and abuse Polysubstance dependency Depression Anxiety Neuropathy GERD Thrombocytopenia DISCHARGE MEDICATIONS: See Medication Reconciliation list. DISCHARGE INSTRUCTIONS: Patient was discharged home. Follow up with primary care provider . I have been assigned to dictate discharge summary for this account. I was not involved in the patient's management. Tiffani Kenny NP Feb 25, 2019 09:55
[2019-02-26] MEDS ORDERED: NORVASC5 MG ORAL (12:10)
[2019-02-26] MEDS ORDERED: GABAPENTIN100 MG ORAL (12:10)
[2019-02-26] MEDS ORDERED: ALBUTEROL SULF8.5 GM INH (12:10)
== END 2019-02-24 13:47 | disposition home or self-care (01) | DRG 816 ==
LOC: EDBEDREQ 16:42 → EMR 17:07 → 2E 17:19 → EDBEDREQ 18:37 → 2E 02-20 03:52
DX: T60.4X2A Toxic effect of rodenticides, intentional self-harm, initial encounter (principal); N17.9 Acute kidney failure, unspecified; E11.22 Type 2 diabetes mellitus with diabetic chronic kidney disease; F11.20 Opioid dependence, uncomplicated; G62.9 Polyneuropathy, unspecified; F10.10 Alcohol abuse, uncomplicated; K21.9 Gastro-esophageal reflux disease without esophagitis; Z88.6 Allergy status to analgesic agent; Z88.0 Allergy status to penicillin; Z88.8 Allergy status to other drugs, medicaments and biological substances; J44.9 Chronic obstructive pulmonary disease, unspecified; I12.9 Hypertensive chronic kidney disease with stage 1 through stage 4 chronic kidney disease, or unspecified chronic kidney disease; N18.9 Chronic kidney disease, unspecified; E87.6 Hypokalemia; F32.9 Major depressive disorder, single episode, unspecified; F41.8 Other specified anxiety disorders; Z76.5 Malingerer [conscious simulation]
CPT/HCPCS: 36415; 80048; 80053; 80307; 80329; 85007; 85025; 85610; 85730; 93005; 94664; 96361; 96374; 96375; 99285; J2405; J8499

== ENCOUNTER → 2019-02-19 | Emergency (ER) | payer OTHER ==
[~2019-02-19] VITALS: Ht 185.4 cm; Wt 88.5 kg
[~2019-02-19] MED LIST changes: +BENADRYL25 M3 PO; +GABAPENTIN800 MG ORAL; +NEURONTIN300 MG ORAL; +NORCO 10-325 T1 EACH ORAL; +REMERON30 M1 ORAL; +SEROQUEL300 MG ORAL
--- NOTE | 2019-02-19 15:28 | NUR ---
ED Nurse Note: pt was shay [place]vall 56 pt was at the ambulance entrence and [place] [facility] [place] and agressive and refused to be triaged and seen walked out. rn hyperbaric and ermbeni aware.
--- NOTE | 2019-02-19 16:35 | Emergency Room Report ---
History of Present Illness General Chief Complaint: Alcohol Intoxication Present Illness Allergies: Coded Allergies: PENICILLINS (Verified Allergy, Severe, unknown, 11/27/12) PHENOBARBITAL (Verified Allergy, Severe, unknown, 11/27/12) PHENYTOIN SODIUM (Verified Allergy, Severe, unknown, 11/27/12) CODEINE (Unverified Allergy, Unknown, 06/14/17) IBUPROFEN (Unverified Allergy, Unknown, 12/07/16) PHENYTOIN (Unverified Allergy, Unknown, 05/14/16) Nursing Documentation-H Hx Cardiac Problems: Yes Hx Hypertension: Yes Hx Asthma: Yes Hx COPD: Yes Hx Diabetes: Yes Hx Cancer: Yes Hx Dialysis: Yes Hx Seizures: Yes Medical Decision Making Diagnostic Impression: Primary Impression: Patient left without being seen ER Course Patient brought in by EMS for alcohol intoxication. Upon arrival to ED he started screaming and yelling stating he did not want to be here. Patient walked off of stretcher and exited the ED Status: unchanged Disposition: LEFT W/OUT BEING SEEN Condition: Stable Heladio Hayden MD Feb 19, 2019 16:35
[2019-02-19 20:00] VITALS: BP 118/76
[2019-02-20] VITALS: BP 164/115
[2019-02-20 04:00] VITALS: BP 167/121
== END | disposition left against medical advice (07) ==
LOC: EDUNIT# 14:50 → EDBD 14:56 → EMR 17:30
DX: Z53.21 Procedure and treatment not carried out due to patient leaving prior to being seen by health care provider (principal); I10 Essential (primary) hypertension; J44.9 Chronic obstructive pulmonary disease, unspecified; E11.9 Type 2 diabetes mellitus without complications; Z85.9 Personal history of malignant neoplasm, unspecified; G40.909 Epilepsy, unspecified, not intractable, without status epilepticus; Z88.6 Allergy status to analgesic agent; Z88.8 Allergy status to other drugs, medicaments and biological substances

== ENCOUNTER 2019-02-26 12:12 | Emergency (ER) | payer OTHER ==
[~2019-02-26] VITALS: Ht 180.3 cm; Wt 99.8 kg
[~2019-02-26 12:12] MED LIST changes: +ALBUTEROL SULF8.5 GM INH; +BENADRYL25 M3 PO; +GABAPENTIN800 MG ORAL; +NEURONTIN300 MG ORAL; +NORCO 10-325 T1 EACH ORAL; +NORVASC5 MG ORAL; +REMERON30 M1 ORAL; +SEROQUEL300 MG ORAL
--- NOTE | 2019-02-26 12:31 | NUR ---
ED Nurse Note: Pt RIRIHardy from the street due to ETOH, reported he drank " a pint of Vodka this morning", complaining of R quadrant abdominal pain, 5/10 graeme. HR 115, other VSS. Pt responds but not able to answer questions appropriately at this point. Will cont to monitor.
[2019-02-26 12:32] VITALS: BP 134/82
[2019-02-26 14:22] LABS: APPEARANCE,URINE CLEAR; BILIRUBIN, URINE NEGATIVE (NEGATIVE); COLOR,URINE PALE YELLOW; GLUCOSE, URINE (UA) NEGATIVE (NEGATIVE); KETONES,URINE 1+ (NEGATIVE); LEUKOCYTE ESTERASE ,URINE NEGATIVE (NEGATIVE); NITRITE,URINE NEGATIVE (NEGATIVE); PH,URINE 6 (4.5-8.0); PROTEIN,URINE NEGATIVE (NEGATIVE); UROBILINOGEN,URINE NORMAL MG/DL (0.0-1.0)
[2019-02-26 14:26] LABS: ANION GAP 16 mmol/L (5-15); BLOOD UREA NITROGEN 20 mg/dL (7-18); CALCIUM 8.7 MG/DL (8.5-10.1); CARBON DIOXIDE 24 MMOL/L (21-32); CHLORIDE 108 MMOL/L (98-107); CREATININE 0.9 MG/DL (0.55-1.30); POTASSIUM 3.6 MMOL/L (3.5-5.1); SODIUM 148 MMOL/L (136-145)
[2019-02-26 14:33] LABS: ALANINE AMINOTRANSFERASE 57 U/L (12-78); ALBUMIN 2.9 G/DL (3.4-5.0); ALBUMIN/GLOBULIN RATIO 0.7 (1.0-2.7); ALKALINE PHOSPHATASE 74 U/L (46-116); ASPARTATE AMINO TRANSFERASE 76 U/L (15-37); BILIRUBIN,TOTAL 0.2 MG/DL (0.2-1.0)
--- NOTE | 2019-02-26 15:03 | NUR ---
ED Nurse Note: military technology manager at bedside drawing blood.
[2019-02-26 15:33] LABS: BASOPHILS % (AUTO) 1.6 % (0.0-2.0); EOSINOPHILS % (AUTO) 0.9 % (0.0-3.0); HEMATOCRIT 41.9 % (42.0-52.0); HEMOGLOBIN 13.7 G/DL (14.2-18.0); LYMPHOCYTES % (AUTO) 34.5 % (20.0-45.0); MEAN CORPUSCULAR VOLUME 96 FL (80-99); MONOCYTES % (AUTO) 4.4 % (1.0-10.0); NEUTROPHILS % (AUTO) 58.7 % (45.0-75.0); PLATELET COUNT 361 K/UL (150-450); RED BLOOD COUNT 4.35 M/UL (4.70-6.10); RED CELL DISTRIBUTION WIDTH 14.5 % (11.6-14.8); WHITE BLOOD COUNT 4.7 K/UL (4.8-10.8)
[2019-02-26 15:45] VITALS: BP 116/80
[2019-02-26 17:55] VITALS: BP 136/99
[2019-02-26] MEDS ORDERED: chlordiazePOXIDE 25mg Cap ORAL ONE (18:00)
[2019-02-26] MEDS ORDERED: LIBRIUM10 MG ORAL (18:03)
--- NOTE | 2019-02-26 18:03 | Emergency Room Report ---
History of Present Illness General Chief Complaint: Generalized Weakness Source: Law Enforcement (Celestina Baptiste) Present Illness HPI 53-year-old male presents to the emergency department brought by ambulance initially for alcohol intoxication without any other medical complaints. During physical exam patient reported that he had 5 out of 10 severity epigastric and right upper quadrant pain. Patient denies nausea or vomiting he reports he was drinking vodka earlier today. He denies illicit drug use. He denies constipation, diarrhea, melena or blood in his stool. Denies CP or SOB. Denies fevers or chills. Additional details for HPI and ROS were limited due to poor patient cooperation. (Celestina Baptiste) Allergies: Coded Allergies: PENICILLINS (Verified Allergy, Severe, unknown, 11/27/12) PHENOBARBITAL (Verified Allergy, Severe, unknown, 11/27/12) PHENYTOIN SODIUM (Verified Allergy, Severe, unknown, 11/27/12) CODEINE (Unverified Allergy, Unknown, 06/14/17) IBUPROFEN (Unverified Allergy, Unknown, 12/07/16) PHENYTOIN (Unverified Allergy, Unknown, 05/14/16) Patient History Past Medical History: see triage record Past Surgical History: unable to obtain Pertinent Family History: unable to obtain Social History: Reports: alcohol use Reviewed Nursing Documentation: PMH: Agreed; PSxH: Agreed (Celestina Baptiste) Nursing Documentation-PMH Past Medical History: No History, Except For Hx Cardiac Problems: Yes Hx Hypertension: Yes Hx Asthma: Yes Hx COPD: Yes Hx Diabetes: Yes Hx Cancer: No Hx Gastrointestinal Problems: Yes Hx Dialysis: Yes History Of Psychiatric Problem: Yes Hx Neurological Problems: Yes - opiate dependence, ETOH Hx Seizures: Yes (Celestina Baptiste) Review of Systems All Other Systems: limited - poor pt. cooperation (Celestina Baptiste) Physical Exam Vital Signs Date Time Temp Pulse Resp B/P (MAP) Pulse Ox O2 Delivery O2 Flow Rate FiO2 02/26/19 12:04 97.9 100 18 137/86 (103) 99 Room Air 02/26/19 15:45 2.0 Sp02 EP Interpretation: reviewed, normal General Appearance: no apparent distress, alert, GCS 15, non-toxic Head: normocephalic, atraumatic Eyes: bilateral eye normal inspection, bilateral eye PERRL ENT: hearing grossly normal, normal voice Neck: full range of motion, no bony tend Respiratory: chest non-tender, lungs clear, normal breath sounds, speaking full sentences Cardiovascular #1: regular rate, rhythm, no edema, tachycardia Gastrointestinal: normal bowel sounds, soft, no peritonitis, no guarding, tenderness - TTP in the RUQ and Epigastric area. Musculoskeletal: back normal, gait/station normal, normal range of motion, non- tender Neurologic: alert, oriented x3, responsive, motor strength/tone normal, sensory intact, normal gait, speech normal, other - Clinically inebriated, grossly normal Psychiatric: judgement/insight normal, no suicidal/homicidal ideation Skin: other - no open wounds, no abrasions, no bruises, no erythema/warmth (Celestina Baptiste) Medical Decision Making PA Attestation Dr. Luz Is my supervising Physician whom patient management has been discussed with. (Celestina Baptiste) PA Attestation I saw and evaluated the patient and discussed the care with Celestina LEPE above on 02/26/2019. I agree with the findings and plan as documented in the note. Patient alcohol intoxicated pending sobriety. Patient became clinically sober with a stable gait and was stable for DC (Gustavo Luz M.D.) Diagnostic Impression: Primary Impression: Alcohol intoxication Qualified Codes: F10.920 - Alcohol use, unspecified with intoxication, uncomplicated ER Course 53-year-old male presents to the emergency department brought by ambulance initially for alcohol intoxication without any other medical complaints. During physical exam patient reported that he had 5 out of 10 severity epigastric and right upper quadrant pain. Patient denies nausea or vomiting he reports he was drinking vodka earlier today. He denies illicit drug use. He denies constipation, diarrhea, melena or blood in his stool. Denies CP or SOB. Denies fevers or chills. Additional details for HPI and ROS were limited due to poor patient cooperation. This patient is well-known to this ED. pt. is NAD, pt. is alert, no obvious signs of trauma, able to ambulate to ED gurney. Ddx considered but are not limited to ETOH, withdrawal, trauma, Syncope, dementia, OD, SI/HI, gastritis, SBO, GI Bleed just to name a few. Vital signs: tachycardic, remaining VS are WNL, pt. is afebrile --reviewed charts and EKG from multiple previous visits, pt. is consistently sinus tach. H&PE are most consistent with ETOH abuse and gastritis ORDERS: - Bedside Accu-Check:94 -CBC, CMP, Lipase: Unremarkable, mild pancytopenia, AST 74 -Serum ETOH: 317 ED INTERVENTIONS: - Pepcid PO - Librium PO Observance while he detoxifies. Pt. was allowed to sleep/rest. PT. Continues to remain awake and alert x 3 States his abdominal pain has subsided. DISCHARGE: At this time pt. is stable for d/c to home. Will provide printed patient care instructions, and any necessary prescriptions. Care plan and follow up instructions have been discussed with the patient prior to discharge. --Pt. D/C with AA resource information. Labs Test 02/26/19 13:45 02/26/19 15:05 Urine Color Pale yellow Urine Appearance Clear Urine pH 6 (4.5-8.0) Urine Specific [place] 1.010 (1.005-1.035) Urine Protein Negative (NEGATIVE) Urine Glucose (UA) Negative (NEGATIVE) Urine Ketones 1+ (NEGATIVE) Urine Blood Negative (NEGATIVE) Urine Nitrite Negative (NEGATIVE) Urine Bilirubin Negative (NEGATIVE) Urine Urobilinogen Normal MG/DL (0.0-1.0) Urine Leukocyte Esterase Negative (NEGATIVE) Sodium Level 148 MMOL/L (136-145) Potassium Level 3.6 MMOL/L (3.5-5.1) Chloride Level 108 MMOL/L (98-107) Carbon Dioxide Level 24 MMOL/L (21-32) Anion Gap 16 mmol/L (5-15) Blood Urea Nitrogen 20 mg/dL (7-18) Creatinine 0.9 MG/DL (0.55-1.30) Estimat Glomerular Filtration Rate > 60 mL/min (>60) Glucose Level 76 MG/DL (74-106) Calcium Level 8.7 MG/DL (8.5-10.1) Total Bilirubin 0.2 MG/DL (0.2-1.0) Aspartate Amino Transf (AST/SGOT) 76 U/L (15-37) Alanine Aminotransferase (ALT/SGPT) 57 U/L (12-78) Alkaline Phosphatase 74 U/L (46-116) Total Protein 7.1 G/DL (6.4-8.2) Albumin 2.9 G/DL (3.4-5.0) Globulin 4.2 g/dL Albumin/Globulin Ratio 0.7 (1.0-2.7) Lipase 309 U/L (73-393) Serum Alcohol 317 mg/dL White Blood Count 4.7 K/UL (4.8-10.8) Red Blood Count 4.35 M/UL (4.70-6.10) Hemoglobin 13.7 G/DL (14.2-18.0) Hematocrit 41.9 % (42.0-52.0) Mean Corpuscular Volume 96 FL (80-99) Mean Corpuscular Hemoglobin 31.4 PG (27.0-31.0) Mean Corpuscular Hemoglobin Concent 32.7 G/DL (32.0-36.0) Red Cell Distribution Width 14.5 % (11.6-14.8) Platelet Count 361 K/UL (150-450) Mean Platelet Volume 6.4 FL (6.5-10.1) Neutrophils (%) (Auto) 58.7 % (45.0-75.0) Lymphocytes (%) (Auto) 34.5 % (20.0-45.0) Monocytes (%) (Auto) 4.4 % (1.0-10.0) Eosinophils (%) (Auto) 0.9 % (0.0-3.0) Basophils (%) (Auto) 1.6 % (0.0-2.0) (Celestina Baptiste) Last Vital Signs Date Time Temp Pulse Resp B/P (MAP) Pulse Ox O2 Delivery O2 Flow Rate FiO2 02/26/19 17:55 97.9 105 21 136/99 99 Room Air 2.0 (Celestina Baptiste) Disposition: HOME, SELF-CARE Condition: Stable Scripts Chlordiazepoxide Hcl* (LIBRIUM*) 10 Mg Capsule 10 MG ORAL THREE TIMES A DAY, #6 CAP 0 Refills Prov: Celestina Baptiste 02/26/19 Referrals: NOT CHOSEN IPA/,REFERRING (PCP) Patient Instructions: Alcohol Abuse and Nutrition, Chlordiazepoxide capsules Additional Instructions: Take medications as directed. Continue excessive alcohol use please review list of resources for alcohol addiction. Follow up with a Primary Care Provider in 3-5 days, even if your symptoms have resolved. Return sooner to ED if new symptoms occur, or current symptoms become worse. Do not drive, drink alcohol or operate heavy machinery while taking Librium. - Please note that this Emergency Department Report was dictated using [employer] rental representative technology software, occasionally this can lead to erroneous entry secondary to interpretation by the dictation equipment. Celestina Baptiste Feb 26, 2019 18:03 Gustavo Luz M.D. Feb 27, 2019 07:28
[2019-02-26 18:16] VITALS: BP 136/99
--- NOTE | 2019-02-26 18:16 | NUR ---
ER DISCHARGE NOTE: Patient is cleared to be discharged per ERMD, pt is aox4, on room air, with stable vital signs. pt was given dc and prescription instructions, pt was able to verbalize understanding, pt id band and iv site removed without complications. pt is able to ambulate with steady gait. pt took all belongings.
== END 2019-02-26 18:16 | disposition home or self-care (01) ==
LOC: EDBD 12:12 → EMR 12:42 → CANBEDREQ 18:00 → EMR 18:16
DX: F10.920 Alcohol use, unspecified with intoxication, uncomplicated (principal); Z88.0 Allergy status to penicillin; Z88.6 Allergy status to analgesic agent; I10 Essential (primary) hypertension; J44.9 Chronic obstructive pulmonary disease, unspecified; E11.9 Type 2 diabetes mellitus without complications; G40.909 Epilepsy, unspecified, not intractable, without status epilepticus; R00.0 Tachycardia, unspecified; D61.818 Other pancytopenia
CPT/HCPCS: 36415; 80053; 80329; 81003; 83690; 85025; 99284

== ENCOUNTER 2019-03-27 11:16 | Emergency (ER) | payer OTHER ==
[~2019-03-27] VITALS: Ht 177.8 cm; Wt 83.9 kg
[~2019-03-27 11:16] MED LIST changes: +LIBRIUM10 MG ORAL
[2019-03-27 11:19] VITALS: BP 126/112
--- NOTE | 2019-03-27 11:19 | NUR ---
ED Nurse Note: Pt brought in by EMS from home due to ETOH and ground level fall. Pt admits on drinking alcohol with unknown amount and fell. Pt now c/o low back pain and noted small abrasion on left eyebrow. AAOx4, uses his cane to ambulate with mild SOB at rest. Wheezing and rhonchi auscultated. Pt is restless, Sinus tach on classroom monitor 105-115.
[2019-03-27] MEDS ORDERED: Albuterol ud Inhalation HHN ONE (11:30)
[2019-03-27] MEDS ORDERED: Neosporin Oint Ud Pkt TOPIC ONE (11:30)
[2019-03-27] MEDS ORDERED: Thiamine HCl 100 MG in D5W 55 ML IV ONE (11:30)
[2019-03-27] MEDS ORDERED: Ipratropium 0.02% Inh Soln 2.5ml UD HHN ONE (11:30)
--- NOTE | 2019-03-27 11:30 | NUR ---
ED Nurse Note: RT at the bed side for breathing treatment.
--- NOTE | 2019-03-27 11:40 | Emergency Room Report ---
History of Present Illness General Chief Complaint: Multiple Trauma/Fall Source: Patient, EMS (Zaid Hawkins MD) Present Illness HPI The private patient is brought in by EMS. He is been drinking and fell and hit the left side of his head. He was recently admitted for alcohol abuse and also eating rat poison and acute intoxication. Patient denies SI but refuses to answer most questions. Walks with a cane. Post hip fracture R. H/O COPD. Denies chest pain or productive cough. He says "yes" when told he is wheezing. Admitted February with these d/c diagnoses: Overdose with rat poison Severe hypokalemia -corrected Alcohol use and abuse Polysubstance dependency Depression Anxiety Neuropathy GERD Thrombocytopenia (Zaid Hawkins MD) Allergies: Coded Allergies: PENICILLINS (Verified Allergy, Severe, unknown, 11/27/12) PHENOBARBITAL (Verified Allergy, Severe, unknown, 11/27/12) PHENYTOIN SODIUM (Verified Allergy, Severe, unknown, 11/27/12) CODEINE (Unverified Allergy, Unknown, 06/14/17) IBUPROFEN (Unverified Allergy, Unknown, 12/07/16) PHENYTOIN (Unverified Allergy, Unknown, 05/14/16) Patient History Limited by: other - refuses to answer Past Medical History: see triage record, old chart reviewed Past Surgical History: other - R hip fx, shoulder dislocation Social History: Reports: smoking, alcohol use, drug use - opiates in past Social History Narrative lives at home Reviewed Nursing Documentation: PMH: Agreed; PSxH: Agreed (Zaid Hawkins MD) Nursing Documentation-PMH Past Medical History: No History, Except For Hx Cardiac Problems: Yes Hx Hypertension: Yes Hx Asthma: Yes Hx COPD: Yes Hx Diabetes: Yes Hx Cancer: No Hx Gastrointestinal Problems: Yes Hx Dialysis: Yes History Of Psychiatric Problem: Yes Hx Neurological Problems: Yes - opiate dependence, ETOH Hx Seizures: Yes (Zaid Hawkins MD) Review of Systems All Other Systems: limited (Zaid Hawkins MD) Physical Exam Vital Signs Date Time Temp Pulse Resp B/P (MAP) Pulse Ox O2 Delivery O2 Flow Rate FiO2 03/27/19 11:09 98.2 110 22 153/105 (121) 93 Room Air 03/27/19 11:37 21 Sp02 EP Interpretation: reviewed, abnormal General Appearance: no apparent distress, alert, non-toxic, other - dishevelled Head: normocephalic, other - abrasion L lateral to eyebrow Eyes: bilateral eye PERRL, bilateral eye EOMI, bilateral eye Scleral Injection ENT: moist mucus membranes - no lingual macerations Neck: full range of motion, supple, no bony tend Respiratory: wheezing, expiration, inspiration Cardiovascular #1: regular rate, rhythm Cardiovascular #2: 2+ radial (R) Gastrointestinal: non tender, soft, decreased bowel sounds Genitourinary: no CVA tenderness Musculoskeletal: back normal, no calf tenderness, pelvis stable Neurologic: alert, motor strength/tone normal, sensory intact, other - ataxia, nystagmus, oriented - X2 Psychiatric: no suicidal/homicidal ideation, other - labile and uncooperative Skin: abrasion - face, other - dishevelled (Zaid Hawkins MD) Medical Decision Making Medical: COPD, Alcohol Abuse Behavioral: Depression Reaction to Intervention: Escalated Behavior Restraint Reassesment I, Zaid Hawkins MD, have personally evaluated this patient. Laboratory tests have been reviewed and addressed accordingly. The patient is deemed to present a danger to themselves and/or others. This is based on the exam, history ( provided by patient, EMS) and observed or reported behavior. Attempts for non-invasive measures have been considered and/or attempted, however, have been futile. It is in the best interest of the nursing staff, the patient, and others involved in this patient's care that behavioral restraints be applied. Patient evaluation reveals the following: Because restraints seemed to make things worse, decision to give sedation. Patient allowing this. (Zaid Hawkins MD) Diagnostic Impression: Primary Impression: Head injury Qualified Codes: S09.90XA - Unspecified injury of head, initial encounter Additional Impression: Alcohol intoxication Qualified Codes: F10.929 - Alcohol use, unspecified with intoxication, unspecified ER Course Patient presents with smell of alcohol and head injury. Differential includes acute intoxication, brain bleed, head contusion, electrolyte imbalance, arrhythmia amongst others. The patient denies suicidal ideation at this time. The patient will be evaluated with EKG, chest x-ray, CT of the head and labs. The patient will be treated with IV hydration, thiamine and observation. Patient pulled out IV. Unable to stand. Variable response to requests to cooperate without understanding of risk. Initially restraints ordered. These made things worse. Taking off breathing treatment. Sedation ordered. 12:28 EKG without injury. Chest x-ray no infiltrate. CT of the head no bleed but atrophy. Labs significant for elevated blood alcohol level. Normal coags. Patient did not produce urine. Patient pulled out IV a second time. More coherent. Still slurred. Cooperative. Signed out to Dr. Mcintosh. Signed out to Dr. Mcintosh. Laboratory Tests Test 03/27/19 11:35 White Blood Count 5.7 K/UL (4.8-10.8) Red Blood Count 4.72 M/UL (4.70-6.10) Hemoglobin 14.8 G/DL (14.2-18.0) Hematocrit 45.8 % (42.0-52.0) Mean Corpuscular Volume 97 FL (80-99) Mean Corpuscular Hemoglobin 31.4 PG (27.0-31.0) H Mean Corpuscular Hemoglobin Concent 32.4 G/DL (32.0-36.0) Red Cell Distribution Width 14.9 % (11.6-14.8) H Platelet Count 389 K/UL (150-450) Mean Platelet Volume 6.8 FL (6.5-10.1) Neutrophils (%) (Auto) 44.6 % (45.0-75.0) L Lymphocytes (%) (Auto) 44.8 % (20.0-45.0) Monocytes (%) (Auto) 6.4 % (1.0-10.0) Eosinophils (%) (Auto) 2.2 % (0.0-3.0) Basophils (%) (Auto) 2.0 % (0.0-2.0) Prothrombin Time 10.7 SEC (9.30-11.50) Prothrombin Time INR 1.0 (0.9-1.1) PTT 25 SEC (23-33) Sodium Level 148 MMOL/L (136-145) H Potassium Level 3.6 MMOL/L (3.5-5.1) Chloride Level 107 MMOL/L (98-107) Carbon Dioxide Level 25 MMOL/L (21-32) Anion Gap 16 mmol/L (5-15) H Blood Urea Nitrogen 12 mg/dL (7-18) Creatinine 1.0 MG/DL (0.55-1.30) Estimate Glomerular Filtration Rate > 60 mL/min (>60) Glucose Level 115 MG/DL (74-106) H Calcium Level 8.1 MG/DL (8.5-10.1) L Phosphorus Level 2.9 MG/DL (2.5-4.9) Magnesium Level 1.8 MG/DL (1.8-2.4) Total Bilirubin 0.5 MG/DL (0.2-1.0) Aspartate Amino Transferase (AST) 96 U/L (15-37) H Alanine Aminotransferase (ALT) 89 U/L (12-78) H Alkaline Phosphatase 91 U/L (46-116) Ammonia 50 umol/L (11-32) H Total Creatine Kinase 631 U/L (26-308) H Troponin I 0.000 ng/mL (0.000-0.056) Total Protein 8.1 G/DL (6.4-8.2) Albumin 3.8 G/DL (3.4-5.0) Globulin 4.3 g/dL Albumin/Globulin Ratio 0.9 (1.0-2.7) L Lipase 443 U/L (73-393) H Thyroid Stimulating Hormone (TSH) 0.545 uiU/mL (0.358-3.740) Salicylates Level 5.1 ug/mL (2.8-20) Acetaminophen Level < 2 MCG/ML (10-30) L Serum Alcohol 410 mg/dL (Zaid Hawkins MD) ER Course At the time of disposition patient was observed further. ate and rested comfortably in the room. Patient was retested and ambulates with his cane at baseline levels reports that he feels significantly better Is clinically sober and is asking to be disposition home patient was provided a ride to home (Charlie Mcintosh DO) EKG Diagnostic Results Rate: tachycardiac Rhythm: NSR ST Segments: no acute changes (Zaid Hawkins MD) Rhythm Strip Diag. Results EP Interpretation: yes Rhythm: no PVC's, no ectopy, other - ST (Zaid Hawkins MD) Chest X-Ray Diagnostic Results Chest X-Ray Diagnostic Results : Chest X-Ray Ordered: Yes # of Views/Limited/Complete: 1 View Indication: Other EP Interpretation: Yes Interpretation: no consolidation, no effusion, no pneumothorax, other - copd and inc cor Impression: Other Electronically Signed by: Electronically signed by Zaid Hawkins MD (Zaid Hawkins MD) CT/MRI/US Diagnostic Results CT/MRI/US Diagnostic Results : Imaging Test Ordered: head Impression atrophy. Sinus disease. (Zaid Hawkins MD) Last Vital Signs Date Time Temp Pulse Resp B/P (MAP) Pulse Ox O2 Delivery O2 Flow Rate FiO2 03/27/19 19:10 98.2 85 19 126/112 100 Nasal Cannula 2.0 28 Status: improved (Zaid Hawkins MD) Disposition: HOME, SELF-CARE Condition: Improved Scripts Bacitracin (Bacitracin) 28.4 Gm Oint...g. 1 APPLIC TOPIC BID, #20 GM Prov: Zaid Hawkins MD 03/27/19 Zaid Hawkins MD Mar 27, 2019 11:40 Charlie Mcintosh DO Mar 27, 2019 18:06
--- NOTE | 2019-03-27 11:40 | NUR ---
ED Nurse Note: Collected blood then sent.
--- NOTE | 2019-03-27 12:10 | NUR ---
ED Nurse Note: Noted pt to be restless and uncooperative. Pt attempts to stand up several times. RN assisted pt to go back to his gurney and oriented pt.
--- NOTE | 2019-03-27 12:13 | NUR ---
ED Nurse Note: Pt pulled out his IV catheter, removed his gown and put his shirt back on. Dr Hawkins was notified.
--- NOTE | 2019-03-27 12:20 | NUR ---
ED Nurse Note: Pt is very agitated and restless. Natalie called security and no one is available at this time.
--- NOTE | 2019-03-27 12:23 | Diagnostic Imaging Report ---
Indication: Dyspnea Comparison: 03/24/2018 A single view chest radiograph was obtained. Findings: Cardiomediastinal appearance is within normal limits for age. The lungs are clear. Pulmonary vascularity is appropriate. The diaphragmatic contour is smooth and costophrenic angles are sharp. No pleural effusions are identified. The bones are unremarkable. Impression: No acute findings
[2019-03-27] MEDS ORDERED: DiphenhydrAMINE 50mg/ml Inj IM ONE (12:30)
[2019-03-27] MEDS ORDERED: Haloperidol 5mg/ml Inj IM ONE (12:30)
[2019-03-27 12:42] LABS: EOSINOPHILS % (AUTO) 2.2 % (0.0-3.0); HEMATOCRIT 45.8 % (42.0-52.0); HEMOGLOBIN 14.8 G/DL (14.2-18.0); LYMPHOCYTES % (AUTO) 44.8 % (20.0-45.0); MEAN CORPUSCULAR VOLUME 97 FL (80-99); MONOCYTES % (AUTO) 6.4 % (1.0-10.0); NEUTROPHILS % (AUTO) 44.6 % (45.0-75.0); PLATELET COUNT 389 K/UL (150-450); RED BLOOD COUNT 4.72 M/UL (4.70-6.10); RED CELL DISTRIBUTION WIDTH 14.9 % (11.6-14.8); WHITE BLOOD COUNT 5.7 K/UL (4.8-10.8)
[2019-03-27 12:49] LABS: ANION GAP 16 mmol/L (5-15); BLOOD UREA NITROGEN 12 mg/dL (7-18); CALCIUM 8.1 MG/DL (8.5-10.1); CARBON DIOXIDE 25 MMOL/L (21-32); CHLORIDE 107 MMOL/L (98-107); POTASSIUM 3.6 MMOL/L (3.5-5.1); SODIUM 148 MMOL/L (136-145)
[2019-03-27 12:52] LABS: AMMONIA 50 umol/L (11-32)
[2019-03-27 12:57] LABS: PHOSPHORUS 2.9 MG/DL (2.5-4.9)
--- NOTE | 2019-03-27 13:00 | NUR ---
ED Nurse Note: Pt unable to provide a urine specimen and refused straight cath. ER aware.
[2019-03-27 13:01] LABS: ALANINE AMINOTRANSFERASE 89 U/L (12-78); ALBUMIN 3.8 G/DL (3.4-5.0); ALBUMIN/GLOBULIN RATIO 0.9 (1.0-2.7); ALKALINE PHOSPHATASE 91 U/L (46-116); ASPARTATE AMINO TRANSFERASE 96 U/L (15-37); BILIRUBIN,TOTAL 0.5 MG/DL (0.2-1.0); CREATINE KINASE 631 U/L (26-308)
--- NOTE | 2019-03-27 13:47 | Diagnostic Imaging Report ---
Indication: Head trauma. Headache Technique: Contiguous 5 mm thick transaxial imaging of the head obtained in a Siemens Sensation [address] scanner. Soft tissue and bone windows generated. Automatic Exposure Control was utilized. Total Dose length Product (DLP): 1439.[address] Dose Index Volume (CTDIvol): 70.38 mGy Comparison: 01/07/2019 CT head Findings: There is mild prominence of the ventricles, basal cisterns, and cerebral sulci consistent with atrophy. Moderate, nonspecific, white matter hypoattenuation is noted throughout the brain consistent with chronic small vessel disease. There is no midline shift, edema, acute hemorrhage, mass effect, or abnormal extra-axial fluid collections. There is a defect of the right medial orbital wall consistent with an old injury, which in retrospect was present previously as well. There is mucosal thickening within the paranasal sinuses as visualized. There is no significant interval change. Impression: No acute intracranial bleed, mass effect or edema. Mild atrophy of the brain. Evidence of chronic small vessel disease involving white matter tracts. Old right medial orbital wall fracture. Ethmoid sinusitis The CT scanner at [facility] is accredited by the [employer] and the scans are performed using dose optimization techniques as appropriate to a performed exam including Automatic Exposure control.
--- NOTE | 2019-03-27 13:50 | NUR ---
ED Nurse Note: Patient sleeping in bed. Placed patient on judicial clerk. Bed in lowest position. Urinal at bedside.
--- NOTE | 2019-03-27 14:42 | NUR ---
ED Nurse Note: Juice and water provided.
--- NOTE | 2019-03-27 15:10 | NUR ---
ED Nurse Note: More drinking water and sandwich provided to pt.
[2019-03-27] MEDS ORDERED: BACITRACIN15 GM TOPIC (15:11)
[2019-03-27 19:10] VITALS: BP 126/112
== END 2019-03-27 19:10 | disposition home or self-care (01) ==
LOC: EDBD 11:16 → EMR 12:03
DX: S00.212A Abrasion of left eyelid and periocular area, initial encounter (principal); W19.XXXA Unspecified fall, initial encounter; Y92.89 Other specified places as the place of occurrence of the external cause; F10.129 Alcohol abuse with intoxication, unspecified; R27.0 Ataxia, unspecified; H55.00 Unspecified nystagmus; F32.9 Major depressive disorder, single episode, unspecified; E11.9 Type 2 diabetes mellitus without complications; I10 Essential (primary) hypertension; J44.9 Chronic obstructive pulmonary disease, unspecified; F11.20 Opioid dependence, uncomplicated; Z88.0 Allergy status to penicillin; Z88.5 Allergy status to narcotic agent; Z88.6 Allergy status to analgesic agent; Z88.8 Allergy status to other drugs, medicaments and biological substances
CPT/HCPCS: 36415; 70450; 71045; 80053; 80329; 82140; 82550; 83690; 83735; 84100; 84443; 84484; 85025; 85610; 85730; 93005; 94640; 94664; 96365; 96372; 99285; J1200; J1630

== ENCOUNTER 2019-05-24 17:48 | Emergency (ER) | payer OTHER ==
[~2019-05-24] VITALS: Ht 172.7 cm; Wt 79.4 kg
[~2019-05-24 17:48] MED LIST changes: +BACITRACIN15 GM TOPIC
[2019-05-24 18:00] VITALS: BP 138/79
[2019-05-24] MEDS ORDERED: Acetaminophen 500mg (ES) tab ORAL ONE (18:00)
[2019-05-24] MEDS ORDERED: Ipratropium 0.02% Inh Soln 2.5ml UD HHN ONE (18:00)
--- NOTE | 2019-05-24 18:03 | Emergency Room Report ---
History of Present Illness General Chief Complaint: Pain Source: Patient, EMS Present Illness HPI Patient presents with right-sided pleuritic chest pain. He fell on . He had been drinking became off balance. He denies loss of consciousness. He denies head trauma Patient also has wheezing and a nonproductive cough at this time. He denies fevers or chills. The pain is posterior on the right-hand side. The pain is severe at this time and pleuritic. He states he has not been seen at any hospital recently. The pain does not radiate. The patient's been seen here for alcohol intoxication multiple times. He denies suicidal or homicidal ideation. He has been drinking today. No fevers, chills, sore throat, palpitations, nausea, vomiting, diarrhea, dysuria, abdominal pain, joint pain, rashes, visual changes, headache. He is been seen in the past with opiate dependence, pancreatitis and COPD exacerbation. In the past he was evaluated for pathologic fracture of the right femur. Allergies: Coded Allergies: PENICILLINS (Verified Allergy, Severe, unknown, 11/27/12) PHENOBARBITAL (Verified Allergy, Severe, unknown, 11/27/12) PHENYTOIN SODIUM (Verified Allergy, Severe, unknown, 11/27/12) CODEINE (Unverified Allergy, Unknown, 06/14/17) IBUPROFEN (Unverified Allergy, Unknown, 12/07/16) PHENYTOIN (Unverified Allergy, Unknown, 05/14/16) Patient History Past Medical History: see triage record, old chart reviewed Social History: Reports: smoking, alcohol use, drug use - Marijuana Social History Narrative live by self Reviewed Nursing Documentation: PMH: Agreed; PSxH: Agreed Nursing Documentation-PMH Hx Cardiac Problems: Yes Hx Hypertension: Yes Hx Asthma: Yes Hx COPD: Yes Hx Diabetes: Yes Hx Cancer: No Hx Gastrointestinal Problems: Yes Hx Dialysis: Yes Hx Neurological Problems: Yes - opiate dependence, ETOH Hx Seizures: Yes Review of Systems All Other Systems: negative except mentioned in HPI Physical Exam Vital Signs Date Time Temp Pulse Resp B/P (MAP) Pulse Ox O2 Delivery O2 Flow Rate FiO2 05/24/19 17:38 98.1 86 18 136/74 (94) 94 Room Air Sp02 EP Interpretation: reviewed, abnormal - Interpreted as low by me General Appearance: alert, GCS 15, mild distress, other - Disheveled, Chronically Ill Head: normocephalic, atraumatic Eyes: bilateral eye PERRL, bilateral eye Scleral Injection ENT: moist mucus membranes, other - Prior nasal trauma Neck: full range of motion, supple, no bony tend Respiratory: wheezing, expiration, other - Right posterior mid chest tenderness to palpation without crepitance or instability Cardiovascular #1: tachycardia Cardiovascular #2: 2+ radial (R) Gastrointestinal: non tender, decreased bowel sounds, overweight Musculoskeletal: back normal, normal range of motion, pelvis stable Neurologic: alert, oriented x3, motor strength/tone normal, DTRs symmetric, sensory intact Psychiatric: other - In pain Skin: other - Disheveled, no hematoma, abrasions right posterior chest Medical Decision Making Diagnostic Impression: Primary Impression: Alcohol intoxication Qualified Codes: F10.929 - Alcohol use, unspecified with intoxication, unspecified Additional Impressions: Chest trauma Qualified Codes: S29.9XXA - Unspecified injury of thorax, initial encounter Right pulmonary infiltrate on CXR COPD exacerbation ER Course Patient presents with sided posterior chest pain after a fall. Differential includes contusion or fracture. He also has a history of COPD and is wheezing and has a nonproductive cough. Differential includes COPD exacerbation, pneumonia, rib fractures and bronchitis. Evaluation will be with EKG, chest x- ray and labs. The patient will be treated with breathing treatments and given a dose of Tylenol. He smells of alcohol and intoxication is suspected. EKG with sinus tachycardia nonspecific ST-T wave changes no acute injury. Atelectasis or widening of rib on the right-hand side on x-ray. White blood cell count is normal. CMP with minimally low potassium, minimal renal insufficiency and minimally elevated BNP. Patient improved with breathing treatment and sleeping with no respiratory distress. Patient complained about increased pain. Dilaudid ordered. Because of the normal white count and the clinical presentation antibiotics are withheld. Consideration for CT of the chest during observation. Discussed with Dr. Montemayor who excepts the patient in transfer. Laboratory Tests Test 05/24/19 18:05 05/24/19 19:39 White Blood Count 7.2 K/UL (4.8-10.8) Red Blood Count 4.70 M/UL (4.70-6.10) Hemoglobin 14.9 G/DL (14.2-18.0) Hematocrit 45.0 % (42.0-52.0) Mean Corpuscular Volume 96 FL (80-99) Mean Corpuscular Hemoglobin 31.7 PG (27.0-31.0) H Mean Corpuscular Hemoglobin Concent 33.1 G/DL (32.0-36.0) Red Cell Distribution Width 14.1 % (11.6-14.8) Platelet Count 286 K/UL (150-450) Mean Platelet Volume 7.1 FL (6.5-10.1) Neutrophils (%) (Auto) 56.7 % (45.0-75.0) Lymphocytes (%) (Auto) 33.6 % (20.0-45.0) Monocytes (%) (Auto) 8.1 % (1.0-10.0) Eosinophils (%) (Auto) 0.7 % (0.0-3.0) Basophils (%) (Auto) 1.0 % (0.0-2.0) Prothrombin Time 10.5 SEC (9.30-11.50) Prothrombin Time INR 1.0 (0.9-1.1) PTT 24 SEC (23-33) Sodium Level 147 MMOL/L (136-145) H Potassium Level 3.1 MMOL/L (3.5-5.1) L Chloride Level 107 MMOL/L (98-107) Carbon Dioxide Level 24 MMOL/L (21-32) Anion Gap 16 mmol/L (5-15) H Blood Urea Nitrogen 22 mg/dL (7-18) H Creatinine 1.3 MG/DL (0.55-1.30) Estimate Glomerular Filtration Rate 57.3 mL/min (>60) Glucose Level 108 MG/DL (74-106) H Calcium Level 7.8 MG/DL (8.5-10.1) L Total Bilirubin 0.2 MG/DL (0.2-1.0) Aspartate Amino Transferase (AST) 47 U/L (15-37) H Alanine Aminotransferase (ALT) 34 U/L (12-78) Alkaline Phosphatase 84 U/L (46-116) Total Creatine Kinase 270 U/L (26-308) Troponin I 0.000 ng/mL (0.000-0.056) Pro-B-Type Natriuretic Peptide 236 pg/mL (0-125) H Total Protein 6.8 G/DL (6.4-8.2) Albumin 3.0 G/DL (3.4-5.0) L Globulin 3.8 g/dL Albumin/Globulin Ratio 0.8 (1.0-2.7) L Serum Alcohol 314 mg/dL Urine Color Yellow Urine Appearance Clear Urine pH 6 (4.5-8.0) Urine Specific [place] 1.010 (1.005-1.035) Urine Protein 2+ (NEGATIVE) H Urine Glucose (UA) Negative (NEGATIVE) Urine Ketones Negative (NEGATIVE) Urine Blood 2+ (NEGATIVE) H Urine Nitrite Negative (NEGATIVE) Urine Bilirubin Negative (NEGATIVE) Urine Urobilinogen Normal MG/DL (0.0-1.0) Urine Leukocyte Esterase Negative (NEGATIVE) Urine RBC 0-2 /HPF (0 - 0) H Urine WBC 2-4 /HPF (0 - 0) Urine Squamous Epithelial Cells Occasional /LPF Urine Amorphous Sediment Moderate /LPF (NONE) H Urine Bacteria Few /HPF (NONE) EKG Diagnostic Results Rate: tachycardiac Rhythm: NSR ST Segments: no acute changes Rhythm Strip Diag. Results EP Interpretation: yes Rhythm: no PVC's, no ectopy, other - Sinus tachycardia Chest X-Ray Diagnostic Results Chest X-Ray Diagnostic Results : Chest X-Ray Ordered: Yes # of Views/Limited/Complete: 1 View Indication: Chest Pain EP Interpretation: Yes Interpretation: no effusion, no pneumothorax Impression: Other Electronically Signed by: Electronically signed by Zaid Hawkins MD Last Vital Signs Date Time Temp Pulse Resp B/P (MAP) Pulse Ox O2 Delivery O2 Flow Rate FiO2 05/24/19 22:17 98.2 104 21 135/84 98 Room Air 05/24/19 18:32 21 Status: improved Disposition: XFER [facility] Condition: Serious Zaid Hawkins MD May 24, 2019 18:03
[2019-05-24] MEDS: Albuterol ud Inhalation HHN SCH ×3 (18:23→18:31)
--- NOTE | 2019-05-24 18:35 | NUR ---
ED Nurse Note: Pt refused breathing tx 30min through tx.
--- NOTE | 2019-05-24 19:09 | NUR ---
ED Nurse Note: lab was drawn by the laundry laborer
--- NOTE | 2019-05-24 19:09 | Diagnostic Imaging Report ---
EXAM: XR Chest, 1 View CLINICAL HISTORY: CP TECHNIQUE: Frontal view of the chest. COMPARISON: No relevant prior studies available. FINDINGS: Lungs: Airspace opacity in the right midlung which could represent atelectasis or pneumonia in the appropriate clinical setting. Pleural space: Unremarkable. No pneumothorax. Heart: Unremarkable. No cardiomegaly. Mediastinum: Unremarkable. Bones joints: Unremarkable. IMPRESSION: Airspace opacity in the right midlung which could represent atelectasis or pneumonia in the appropriate clinical setting.
--- NOTE | 2019-05-24 19:09 | NUR ---
ED Nurse Note: Report received from Agus Alexis RN. pt in bed, awake. VSS
--- NOTE | 2019-05-24 19:13 | NUR ---
ED Nurse Note: pt unable to urinate at this time. pt stated he will let staff know when he is ready
[2019-05-24 19:20] LABS: EOSINOPHILS % (AUTO) 0.7 % (0.0-3.0); HEMOGLOBIN 14.9 G/DL (14.2-18.0); LYMPHOCYTES % (AUTO) 33.6 % (20.0-45.0); MEAN CORPUSCULAR VOLUME 96 FL (80-99); MONOCYTES % (AUTO) 8.1 % (1.0-10.0); NEUTROPHILS % (AUTO) 56.7 % (45.0-75.0); PLATELET COUNT 286 K/UL (150-450); RED CELL DISTRIBUTION WIDTH 14.1 % (11.6-14.8); WHITE BLOOD COUNT 7.2 K/UL (4.8-10.8)
[2019-05-24 19:30] LABS: ANION GAP 16 mmol/L (5-15); BLOOD UREA NITROGEN 22 mg/dL (7-18); CALCIUM 7.8 MG/DL (8.5-10.1); CARBON DIOXIDE 24 MMOL/L (21-32); CHLORIDE 107 MMOL/L (98-107); CREATININE 1.3 MG/DL (0.55-1.30); POTASSIUM 3.1 MMOL/L (3.5-5.1); SODIUM 147 MMOL/L (136-145)
[2019-05-24 19:40] LABS: ALANINE AMINOTRANSFERASE 34 U/L (12-78); ALBUMIN/GLOBULIN RATIO 0.8 (1.0-2.7); ALKALINE PHOSPHATASE 84 U/L (46-116); ASPARTATE AMINO TRANSFERASE 47 U/L (15-37); BILIRUBIN,TOTAL 0.2 MG/DL (0.2-1.0); CREATINE KINASE 270 U/L (26-308)
--- NOTE | 2019-05-24 19:41 | NUR ---
ED Nurse Note: urine sample sent down to lab
[2019-05-24 20:06] VITALS: BP 140/72
[2019-05-24 20:30] LABS: APPEARANCE,URINE CLEAR; BILIRUBIN, URINE NEGATIVE (NEGATIVE); GLUCOSE, URINE (UA) NEGATIVE (NEGATIVE); KETONES,URINE NEGATIVE (NEGATIVE); LEUKOCYTE ESTERASE ,URINE NEGATIVE (NEGATIVE); NITRITE,URINE NEGATIVE (NEGATIVE); PH,URINE 6 (4.5-8.0); PROTEIN,URINE 2+ (NEGATIVE); UROBILINOGEN,URINE NORMAL MG/DL (0.0-1.0)
[2019-05-24] MEDS ORDERED: Morphine Sulfate 4mg/ml Inj (IV USE ONLY) IVP ONE (20:30)
[2019-05-24 20:33] LABS: COLOR,URINE YELLOW
--- NOTE | 2019-05-24 21:03 | NUR ---
ED Nurse Note: pt in bed awake, No acute distress is noted at this time.
--- NOTE | 2019-05-24 22:05 | NUR ---
ED Nurse Note: Report given to FIDELINA Dimas from [facility]
[2019-05-24] MEDS ORDERED: Hydromorphone 0.5mg/0.5ml inj IVP ONE (22:15)
[2019-05-24 22:17] VITALS: BP 135/84
--- NOTE | 2019-05-24 22:17 | NUR ---
ED Nurse Note: [facility] ambulance arrived and pt was transfered to [facility] via gurney in stable condition. IV site to right forearm is intact. pt took all belongings.
--- NOTE | 2019-05-27 14:20 | Cardiology Report ---
APPROVED REPORT EKG Measurement Heart [id number] Sinus tachycardia Abnormal ECG
== END 2019-05-24 22:17 | disposition short-term general hospital (02) ==
LOC: EDBD 17:48 → EMR 18:19 → EDBEDREQ 20:03 → EMR 22:17
DX: S29.9XXA Unspecified injury of thorax, initial encounter (principal); J44.1 Chronic obstructive pulmonary disease with (acute) exacerbation; F10.929 Alcohol use, unspecified with intoxication, unspecified; I10 Essential (primary) hypertension; E11.9 Type 2 diabetes mellitus without complications; F12.10 Cannabis abuse, uncomplicated; F17.200 Nicotine dependence, unspecified, uncomplicated; F11.20 Opioid dependence, uncomplicated; Z88.0 Allergy status to penicillin; Z88.8 Allergy status to other drugs, medicaments and biological substances; Z88.6 Allergy status to analgesic agent; R07.9 Chest pain, unspecified; R91.8 Other nonspecific abnormal finding of lung field; W18.30XA Fall on same level, unspecified, initial encounter; Y92.9 Unspecified place or not applicable
CPT/HCPCS: 36415; 71045; 80053; 80329; 81003; 82550; 83880; 84484; 85025; 85610; 85730; 93005; 94640; 94664; 96361; 96374; 96375; J1170; J2270; J2405; Z7502; 99285; J8499

== ENCOUNTER 2019-06-23 18:57 | Emergency (ER) | payer OTHER ==
[~2019-06-23] VITALS: Ht 170.2 cm; Wt 102.1 kg
--- NOTE | 2019-06-23 19:15 | NUR ---
ED Nurse Note: PATIENT ARRIVED VIA AMBULANCE RA 61 WITH COMPLAINTS OF CHEST PAIN X 2 HOURS. RECEIVED 2 NITROS AND 4 ASPIRIN. ao4. nad. vss. ekg done at bedside; nsr. ermd at bedside
--- NOTE | 2019-06-23 19:30 | NUR ---
ED Nurse Note: blood collected; sent down to lab. cxr completed. patient ao4 resting in bed with nad. vss. pt calm and cooperative.
[2019-06-23 20:17] LABS: ANION GAP 22 mmol/L (5-15); BLOOD UREA NITROGEN 27 mg/dL (7-18); CALCIUM 8.3 MG/DL (8.5-10.1); CARBON DIOXIDE 19 MMOL/L (21-32); CHLORIDE 101 MMOL/L (98-107); POTASSIUM 4.2 MMOL/L (3.5-5.1); SODIUM 142 MMOL/L (136-145)
[2019-06-23 20:21] LABS: BASOPHILS % (AUTO) 0.9 % (0.0-2.0); EOSINOPHILS % (AUTO) 0.1 % (0.0-3.0); HEMATOCRIT 44.5 % (42.0-52.0); LYMPHOCYTES % (AUTO) 26.7 % (20.0-45.0); MEAN CORPUSCULAR VOLUME 93 FL (80-99); MONOCYTES % (AUTO) 4.9 % (1.0-10.0); NEUTROPHILS % (AUTO) 67.5 % (45.0-75.0); PLATELET COUNT 304 K/UL (150-450); RED BLOOD COUNT 4.81 M/UL (4.70-6.10); RED CELL DISTRIBUTION WIDTH 14.9 % (11.6-14.8)
[2019-06-23 20:22] LABS: ALANINE AMINOTRANSFERASE 36 U/L (12-78); ALBUMIN 3.3 G/DL (3.4-5.0); ALBUMIN/GLOBULIN RATIO 0.8 (1.0-2.7); ALKALINE PHOSPHATASE 88 U/L (46-116); ASPARTATE AMINO TRANSFERASE 40 U/L (15-37); BILIRUBIN,TOTAL 0.3 MG/DL (0.2-1.0)
--- NOTE | 2019-06-23 20:22 | NUR ---
ED Nurse Note: urine collected; sent down to lab.
[2019-06-23 20:24] VITALS: BP 141/66
[2019-06-23 21:00] VITALS: BP 123/66
--- NOTE | 2019-06-23 21:00 | NUR ---
ED Nurse Note: PROVIDED PATIENT WITH NOURISHMENT. AO4. VSS.
[2019-06-23 21:45] VITALS: BP 123/66
--- NOTE | 2019-06-23 21:46 | NUR ---
AMA: SEE AMA FORM.
--- NOTE | 2019-06-23 22:34 | Emergency Room Report ---
History of Present Illness General Chief Complaint: Chest Pain Source: Patient Present Illness Allergies: Coded Allergies: PENICILLINS (Verified Allergy, Severe, unknown, 11/27/12) PHENOBARBITAL (Verified Allergy, Severe, unknown, 11/27/12) PHENYTOIN SODIUM (Verified Allergy, Severe, unknown, 11/27/12) CODEINE (Unverified Allergy, Unknown, 06/14/17) IBUPROFEN (Unverified Allergy, Unknown, 12/07/16) PHENYTOIN (Unverified Allergy, Unknown, 05/14/16) Nursing Documentation-PMH Hx Cardiac Problems: Yes Hx Hypertension: Yes Hx Asthma: Yes Hx COPD: Yes Hx Diabetes: Yes Hx Cancer: No Hx Gastrointestinal Problems: Yes Hx Dialysis: Yes Hx Neurological Problems: Yes - opiate dependence, ETOH Hx Seizures: Yes Physical Exam Vital Signs Date Time Temp Pulse Resp B/P (MAP) Pulse Ox O2 Delivery O2 Flow Rate FiO2 06/23/19 18:52 97.2 119 18 141/66 (91) 98 Room Air Medical Decision Making EKG Diagnostic Results Rate: normal Rhythm: NSR ST Segments: no acute changes ASA given to the pt in ED: No Rhythm Strip Diag. Results EP Interpretation: yes Rhythm: NSR, no PVC's, no ectopy Last Vital Signs Date Time Temp Pulse Resp B/P (MAP) Pulse Ox O2 Delivery O2 Flow Rate FiO2 06/23/19 20:24 95 18 Room Air 06/23/19 20:24 97.2 141/66 98 Referrals: [facility]ERR[facility] (PCP) Heladio Hayden MD Jun 23, 2019 22:34
--- NOTE | 2019-06-24 00:07 | NUR ---
ED Nurse Note: Informed that patient has address on file despite verbal report. Living status updated.
--- NOTE | 2019-06-24 12:13 | Diagnostic Imaging Report ---
Indication: Chest pain Technique: One view of the chest Comparison: 05/24/2019 Findings: Lungs and pleural spaces are clear. Heart size is normal. There is some right suprahilar atelectasis and minimal right perihilar atelectasis. Previously demonstrated right midlung airspace opacities no longer evident Impression: Minimal atelectatic changes. No acute process otherwise Interim clearing of previously demonstrated right midlung airspace opacity
== END 2019-06-23 21:45 | disposition left against medical advice (07) ==
LOC: EDBD 18:57 → EMR 19:37
DX: R07.9 Chest pain, unspecified (principal); I10 Essential (primary) hypertension; J44.9 Chronic obstructive pulmonary disease, unspecified; E11.9 Type 2 diabetes mellitus without complications; G40.909 Epilepsy, unspecified, not intractable, without status epilepticus; Z88.0 Allergy status to penicillin; Z88.6 Allergy status to analgesic agent; Z88.8 Allergy status to other drugs, medicaments and biological substances
CPT/HCPCS: 36415; 71045; 80053; 80307; 84484; 85025; 93005; G0480; G0481; Z7502; 99283

== ENCOUNTER 2019-07-07 21:58 | Emergency (ER) | payer OTHER ==
[~2019-07-07] VITALS: Ht 172.7 cm; Wt 72.6 kg
--- NOTE | 2019-07-07 22:10 | NUR ---
ED Nurse Note: Recieved pt BIBA from streets, pt with c/o left flank,chest pain, pt is awake, alert and orineted x 4, slightly intoxicated with alcohol odor, pt placed on cardiac monitoring, b/s is slightly low, informed MD, pt gowned and placed on cardiac monitoring, IV line and labs done also, will resume care as ordered and closely monitor.
[2019-07-07 23:00] VITALS: BP 105/64
--- NOTE | 2019-07-07 23:11 | Emergency Room Report ---
History of Present Illness General Chief Complaint: Pain Source: Patient Present Illness HPI This is a 53-year-old male with history of high blood pressure and diabetes. He is also an alcoholic. He presents with chief complaint of right-sided chest pain. This is a chronic issue. He has been here multiple times for it. Pain is 10 out of 10. Nothing made it better. Nothing made it worse. He said medicine is not helping him. Denies any other complaint. Admits to drinking tonight. History is limited because of his intoxication. Allergies: Coded Allergies: PENICILLINS (Verified Allergy, Severe, unknown, 11/27/12) PHENOBARBITAL (Verified Allergy, Severe, unknown, 11/27/12) PHENYTOIN SODIUM (Verified Allergy, Severe, unknown, 11/27/12) CODEINE (Unverified Allergy, Unknown, 06/14/17) IBUPROFEN (Unverified Allergy, Unknown, 12/07/16) PHENYTOIN (Unverified Allergy, Unknown, 05/14/16) Patient History Past Medical History: see triage record, old chart reviewed, DM, HTN, CAD, COPD Past Surgical History: other Pertinent Family History: none Social History: Reports: alcohol use Immunizations: other Reviewed Nursing Documentation: PMH: Agreed; PSxH: Agreed Nursing Documentation-PMH Hx Cardiac Problems: Yes Hx Hypertension: Yes Hx Asthma: Yes Hx COPD: Yes Hx Diabetes: Yes Hx Cancer: No Hx Gastrointestinal Problems: Yes Hx Dialysis: Yes Hx Neurological Problems: Yes - opiate dependence, ETOH Hx Seizures: Yes Review of Systems Eye: Denies: eye pain, blurred vision ENT: Denies: ear pain, nose congestion, throat swelling Respiratory: Denies: cough, shortness of breath Cardiovascular: Reports: chest pain; Denies: palpitations Gastrointestinal: Denies: abdominal pain, diarrhea, nausea, vomiting Musculoskeletal: Denies: back pain, joint pain Skin: Denies: rash Neurological: Denies: headache, numbness Endocrine: Denies: increased thirst, increased urine Hematologic/Lymphatic: Denies: easy bruising All Other Systems: negative except mentioned in HPI Physical Exam Vital Signs Date Time Temp Pulse Resp B/P (MAP) Pulse Ox O2 Delivery O2 Flow Rate FiO2 07/07/19 21:57 98.2 122 18 85/59 (68) 98 Room Air Vitals with hypotension and tachycardia Sp02 EP Interpretation: reviewed, normal General Appearance: well appearing, no apparent distress, alert, other - intoxicated Head: normocephalic, atraumatic Eyes: bilateral eye PERRL, bilateral eye EOMI ENT: hearing grossly normal, normal pharynx Neck: full range of motion, supple, no meningismus Respiratory: chest non-tender, lungs clear, normal breath sounds Cardiovascular #1: regular rate, rhythm, no murmur Gastrointestinal: normal bowel sounds, non tender, no mass, no organomegaly, no bruit, non-distended Musculoskeletal: back normal, gait/station normal, normal range of motion Psychiatric: mood/affect normal Medical Decision Making Diagnostic Impression: Primary Impression: Alcohol intoxication Qualified Codes: F10.920 - Alcohol use, unspecified with intoxication, uncomplicated Additional Impression: Chest pain Qualified Codes: R07.9 - Chest pain, unspecified ER Course Patient presents with right-sided chest pain. Is a chronic problem. EKG is unremarkable. Troponin is negative. His heart rate is normalized now. Blood pressure stable after fluid. I suspect he was dehydrated from lack of p.o. intake from his alcohol abuse. Patient refused any work-up after learning that he would like any opiate. He took off his IV and leads. He refused a chest x-ray. He said he wants to leave. Patient left without paperwork. He is competent to make that decision. EKG Diagnostic Results Rate: normal Rhythm: NSR ST Segments: no acute changes Rhythm Strip Diag. Results EP Interpretation: yes Rate: 95 Rhythm: NSR, no PVC's, no ectopy Chest X-Ray Diagnostic Results Chest X-Ray Diagnostic Results : Chest X-Ray Ordered: Yes # of Views/Limited/Complete: 1 View Indication: Chest Pain EP Interpretation: No - Refused chest x-ray Last Vital Signs Date Time Temp Pulse Resp B/P (MAP) Pulse Ox O2 Delivery O2 Flow Rate FiO2 07/07/19 21:57 98.2 122 18 85/59 (68) 98 Room Air Status: improved Disposition: AGAINST MEDICAL ADVICE Condition: Stable Andrea Burrows MD Jul 07, 2019 23:11
[2019-07-07] MEDS ORDERED: Acetaminophen 500mg (ES) tab ORAL ONE (23:15)
--- NOTE | 2019-07-07 23:20 | NUR ---
ED Nurse Note: MD WENT TO BEDSIDE TO SEE PT, PT SUDDENNLY BECAME ANGRY, GOT OUT OF BED, PULLED OFF ALL EQUIPMENT AND WOULD NOT LISTEN TO ANYONE STATING HE IS ANGRY THAT MD WILL NOT GIVE STRONG PAIN MEDICATION, PT REMAINS SLIGHTLY INTOXICATED, PT ALSO PULLED OUT IV LINE, MD INFORMED, PT LEFT FACILITY MD JACINTO AND CHARGE NURSE AWARE.
[2019-07-07 23:30] VITALS: BP 105/64
[2019-07-07 23:30] LABS: BASOPHILS % (AUTO) 0.8 % (0.0-2.0); EOSINOPHILS % (AUTO) 0.5 % (0.0-3.0); HEMATOCRIT 41.2 % (42.0-52.0); HEMOGLOBIN 14.5 G/DL (14.2-18.0); LYMPHOCYTES % (AUTO) 32.1 % (20.0-45.0); MEAN CORPUSCULAR VOLUME 89 FL (80-99); MONOCYTES % (AUTO) 10.2 % (1.0-10.0); NEUTROPHILS % (AUTO) 56.5 % (45.0-75.0); PLATELET COUNT 188 K/UL (150-450); RED BLOOD COUNT 4.61 M/UL (4.70-6.10); RED CELL DISTRIBUTION WIDTH 14.4 % (11.6-14.8); WHITE BLOOD COUNT 6.5 K/UL (4.8-10.8)
--- NOTE | 2019-07-07 23:30 | NUR ---
AMA: SEE AMA FORM. PT REFUSED TO SIGN, PT LEFT FACILITY VIA AMBULATING, NO PAIN, SOB OR DISTRESS NOTED.
[2019-07-07 23:38] LABS: ANION GAP 17 mmol/L (5-15); BLOOD UREA NITROGEN 10 mg/dL (7-18); CALCIUM 8.4 MG/DL (8.5-10.1); CARBON DIOXIDE 26 MMOL/L (21-32); CHLORIDE 98 MMOL/L (98-107); CREATININE 1.6 MG/DL (0.55-1.30); SODIUM 141 MMOL/L (136-145)
[2019-07-07 23:43] LABS: ALANINE AMINOTRANSFERASE 41 U/L (12-78); ALBUMIN 3.2 G/DL (3.4-5.0); ALBUMIN/GLOBULIN RATIO 0.8 (1.0-2.7); ALKALINE PHOSPHATASE 98 U/L (46-116); ASPARTATE AMINO TRANSFERASE 40 U/L (15-37); BILIRUBIN,TOTAL 0.4 MG/DL (0.2-1.0)
--- NOTE | 2019-07-08 12:34 | Cardiology Report ---
APPROVED REPORT EKG Measurement Heart [id number] Normal sinus rhythm Nonspecific ST abnormality Abnormal ECG
== END 2019-07-07 23:30 | disposition left against medical advice (07) ==
LOC: EDBD 21:58 → EMR 22:17
DX: F10.129 Alcohol abuse with intoxication, unspecified (principal); R07.9 Chest pain, unspecified; I10 Essential (primary) hypertension; E11.9 Type 2 diabetes mellitus without complications; J44.9 Chronic obstructive pulmonary disease, unspecified; Z88.0 Allergy status to penicillin; Z88.6 Allergy status to analgesic agent; Z88.8 Allergy status to other drugs, medicaments and biological substances; I11.9 Hypertensive heart disease without heart failure; G40.909 Epilepsy, unspecified, not intractable, without status epilepticus
CPT/HCPCS: 36415; 80053; 84484; 85025; 93005; 96360; Z7502; 99284

== ENCOUNTER 2019-08-09 16:07 | Emergency (ER) | payer OTHER ==
[~2019-08-09] VITALS: Ht 177.8 cm; Wt 95.3 kg
[2019-08-09 16:10] VITALS: BP 138/90
--- NOTE | 2019-08-09 16:10 | NUR ---
ED Nurse Note: Patient BIBA complaining of chest pain x 2 days. Constant 10/10, no relieving or agravating factors. Patient AxO x 4, no n/v or other complaints. Blood sent to lab.
--- NOTE | 2019-08-09 16:15 | Emergency Room Report ---
History of Present Illness General Chief Complaint: Chest Pain Source: Patient, Medical Record, EMS Present Illness HPI Patient is a 54-year-old male presents after increased cough and chest discomfort. Prior history of COPD. Previous history of alcohol abuse. He reports currently intermittently smoking. Reports having cough for the past few days. Associated increased chest discomfort. Denies any vomiting or diarrhea. Patient was given aspirin by paramedics. Allergies: Coded Allergies: PENICILLINS (Verified Allergy, Severe, unknown, 11/27/12) PHENOBARBITAL (Verified Allergy, Severe, unknown, 11/27/12) PHENYTOIN SODIUM (Verified Allergy, Severe, unknown, 11/27/12) CODEINE (Unverified Allergy, Unknown, 06/14/17) IBUPROFEN (Unverified Allergy, Unknown, 12/07/16) PHENYTOIN (Unverified Allergy, Unknown, 05/14/16) Patient History Past Medical History: see triage record Reviewed Nursing Documentation: PMH: Agreed; PSxH: Agreed Nursing Documentation-PMH Past Medical History: No History, Except For Hx Cardiac Problems: Yes Hx Hypertension: Yes Hx Asthma: Yes Hx COPD: Yes Hx Diabetes: Yes Hx Cancer: No Hx Gastrointestinal Problems: Yes Hx Dialysis: Yes Hx Neurological Problems: Yes - opiate dependence, ETOH Hx Seizures: Yes Review of Systems All Other Systems: negative except mentioned in HPI Physical Exam Vital Signs Date Time Temp Pulse Resp B/P (MAP) Pulse Ox O2 Delivery O2 Flow Rate FiO2 08/09/19 16:07 98.4 130 20 138/90 (106) 98 Room Air Sp02 EP Interpretation: reviewed, normal General Appearance: normal inspection, well appearing, alert, GCS 15, Chronically Ill Head: atraumatic ENT: normal ENT inspection, hearing grossly normal, normal voice Neck: normal inspection, full range of motion, supple, no bony tend Respiratory: normal inspection, no respiratory distress, no retraction, wheezing Cardiovascular #1: regular rate, rhythm, no edema Gastrointestinal: normal inspection, normal bowel sounds, non tender, soft, no guarding, no hernia Genitourinary: no CVA tenderness Musculoskeletal: normal inspection, back normal, normal range of motion Neurologic: alert, motor strength/tone normal, heavy line technician III-XII nml as tested, EOM palsy, oriented x3, responsive, speech normal, normal inspection Psychiatric: normal inspection, judgement/insight normal, mood/affect normal Medical Decision Making Diagnostic Impression: Primary Impression: COPD exacerbation Additional Impressions: Alcohol abuse Opiate dependence ER Course Presented for cough and difficulty with breathing. Differential diagnosis include was not limited to pneumonia, bronchitis, COPD, myocardial infarction among others. EKG interpreted by me showed sinus rhythm sinus tachycardia with rate in the 120s with some lateral ST depression. Patient's initial troponin was noted be negative. He was given breathing treatment. Patient been given aspirin by EMS. He was noted to have some signs of alcohol intoxication and had elevated blood alcohol level. He was given IV Ativan as well as oral pain medication. He was noted to have some improvement in symptoms.Patient was discussed with Dr. Collins for possible transfer to [facility] who agreed to accept the patient. Laboratory Tests Test 08/09/19 16:50 08/09/19 19:00 White Blood Count 6.7 K/UL (4.8-10.8) Red Blood Count 4.79 M/UL (4.70-6.10) Hemoglobin 14.9 G/DL (14.2-18.0) Hematocrit 45.5 % (42.0-52.0) Mean Corpuscular Volume 95 FL (80-99) Mean Corpuscular Hemoglobin 31.0 PG (27.0-31.0) Mean Corpuscular Hemoglobin Concent 32.7 G/DL (32.0-36.0) Red Cell Distribution Width 16.8 % (11.6-14.8) H Platelet Count 152 K/UL (150-450) Mean Platelet Volume 6.6 FL (6.5-10.1) Neutrophils (%) (Auto) 46.8 % (45.0-75.0) Lymphocytes (%) (Auto) 42.2 % (20.0-45.0) Monocytes (%) (Auto) 8.8 % (1.0-10.0) Eosinophils (%) (Auto) 1.0 % (0.0-3.0) Basophils (%) (Auto) 1.2 % (0.0-2.0) Sodium Level 138 MMOL/L (136-145) Potassium Level 4.3 MMOL/L (3.5-5.1) Chloride Level 95 MMOL/L (98-107) L Carbon Dioxide Level 22 MMOL/L (21-32) Anion Gap 21 mmol/L (5-15) H Blood Urea Nitrogen 19 mg/dL (7-18) H Creatinine 1.2 MG/DL (0.55-1.30) Estimate Glomerular Filtration Rate > 60 mL/min (>60) Glucose Level 86 MG/DL (74-106) Calcium Level 9.2 MG/DL (8.5-10.1) Total Bilirubin 0.9 MG/DL (0.2-1.0) Aspartate Amino Transferase (AST) 147 U/L (15-37) H Alanine Aminotransferase (ALT) 94 U/L (12-78) H Alkaline Phosphatase 97 U/L (46-116) Troponin I 0.000 ng/mL (0.000-0.056) Total Protein 7.9 G/DL (6.4-8.2) Albumin 3.7 G/DL (3.4-5.0) Globulin 4.2 g/dL Albumin/Globulin Ratio 0.9 (1.0-2.7) L Salicylates Level 5.8 ug/mL (2.8-20) Acetaminophen Level < 2 MCG/ML (10-30) L Serum Alcohol 178 mg/dL Urine Color Yellow Urine Appearance Clear Urine pH 6 (4.5-8.0) Urine Specific [place] 1.010 (1.005-1.035) Urine Protein 2+ (NEGATIVE) H Urine Glucose (UA) Negative (NEGATIVE) Urine Ketones 3+ (NEGATIVE) H Urine Blood Negative (NEGATIVE) Urine Nitrite Negative (NEGATIVE) Urine Bilirubin Negative (NEGATIVE) Urine Urobilinogen 1 MG/DL (0.0-1.0) H Urine Leukocyte Esterase Negative (NEGATIVE) Urine RBC 0-2 /HPF (0 - 0) H Urine WBC 0-2 /HPF (0 - 0) Urine Squamous Epithelial Cells None /LPF (NONE/OCC) Urine Bacteria Moderate /HPF (NONE) H Urine Opiates Screen Negative (NEGATIVE) Urine Barbiturates Screen Negative (NEGATIVE) Phencyclidine (PCP) Screen Negative (NEGATIVE) Urine Amphetamines Screen Negative (NEGATIVE) Urine Benzodiazepines Screen Negative (NEGATIVE) Urine Cocaine Screen Negative (NEGATIVE) Urine Marijuana (THC) Screen Positive (NEGATIVE) H EKG Diagnostic Results Rate: tachycardiac Rhythm: NSR ST Segments: no acute changes Last Vital Signs Date Time Temp Pulse Resp B/P (MAP) Pulse Ox O2 Delivery O2 Flow Rate FiO2 08/09/19 16:07 98.4 130 20 138/90 (448) 98 Room Air Status: unchanged Disposition: XFER SHT-TRM HOSP Condition: Stable El Rashid MD Aug 09, 2019 16:15
[2019-08-09] MEDS ORDERED: Albuterol/Ipratropium 3ml neb HHN ONE ×2 (16:30→19:30)
[2019-08-09] MEDS ORDERED: Solu-MEDROL 125mg Inj IVP ONE ×2 (16:30→19:30)
[2019-08-09] MEDS ORDERED: HYDROcodone/Acetamin 5/325 tab ORAL ONE (17:15)
--- NOTE | 2019-08-09 17:21 | Diagnostic Imaging Report ---
EXAM: XR Chest, 1 View CLINICAL HISTORY: SOB TECHNIQUE: Frontal view of the chest. COMPARISON: Chest x-ray dated 06/23/2019 FINDINGS: Lungs: Unremarkable. No consolidation. Pleural space: Unremarkable. No pneumothorax. Heart: Unremarkable. No cardiomegaly. Mediastinum: Unremarkable. Bones/joints: Unremarkable. IMPRESSION: Normal chest x-ray.
[2019-08-09 17:29] LABS: BASOPHILS % (AUTO) 1.2 % (0.0-2.0); HEMATOCRIT 45.5 % (42.0-52.0); HEMOGLOBIN 14.9 G/DL (14.2-18.0); LYMPHOCYTES % (AUTO) 42.2 % (20.0-45.0); MEAN CORPUSCULAR VOLUME 95 FL (80-99); MONOCYTES % (AUTO) 8.8 % (1.0-10.0); NEUTROPHILS % (AUTO) 46.8 % (45.0-75.0); PLATELET COUNT 152 K/UL (150-450); RED BLOOD COUNT 4.79 M/UL (4.70-6.10); RED CELL DISTRIBUTION WIDTH 16.8 % (11.6-14.8); WHITE BLOOD COUNT 6.7 K/UL (4.8-10.8)
[2019-08-09] MEDS ORDERED: Omnipaque-300 100ml vial INJ PRN (17:45)
[2019-08-09 18:00] LABS: ALANINE AMINOTRANSFERASE 94 U/L (12-78); ALBUMIN 3.7 G/DL (3.4-5.0); ALBUMIN/GLOBULIN RATIO 0.9 (1.0-2.7); ALKALINE PHOSPHATASE 97 U/L (46-116); ANION GAP 21 mmol/L (5-15); ASPARTATE AMINO TRANSFERASE 147 U/L (15-37); BILIRUBIN,TOTAL 0.9 MG/DL (0.2-1.0); BLOOD UREA NITROGEN 19 mg/dL (7-18); CALCIUM 9.2 MG/DL (8.5-10.1); CARBON DIOXIDE 22 MMOL/L (21-32); CHLORIDE 95 MMOL/L (98-107); CREATININE 1.2 MG/DL (0.55-1.30); POTASSIUM 4.3 MMOL/L (3.5-5.1); SODIUM 138 MMOL/L (136-145)
--- NOTE | 2019-08-09 19:02 | Diagnostic Imaging Report ---
EXAM: CT Abdomen and Pelvis With Intravenous Contrast CLINICAL HISTORY: PAIN TECHNIQUE: Axial computed tomography images of the abdomen and pelvis with intravenous contrast. CTDI is 22.80 mGy and DLP is 1424.4 mGy-cm. One or more of the following dose reduction techniques were used: automated exposure control, adjustment of the mA and/or kV according to patient size, use of iterative reconstruction technique. COMPARISON: No relevant prior studies available. FINDINGS: Lung bases: Bibasilar atelectasis. Basilar calcifications. ABDOMEN: Liver: Hepatic steatosis. Gallbladder and bile ducts: Gallbladder is distended. Pancreas: Question 3 mm hypodense lesion within the head of the pancreas which may represent a sidebranch IPMN. Spleen: Unremarkable. Adrenals: Unremarkable. Kidneys and ureters: Cysts within both kidneys. Stomach and bowel: Unremarkable. PELVIS: Appendix: Appendix is not visualized. Bladder: Unremarkable. Reproductive: Unremarkable as visualized. ABDOMEN and PELVIS: Intraperitoneal space: Unremarkable. Bones/joints: Total right hip arthroplasty. Prominent superior endplate height loss of L3. Remote healed right rib fractures. No dislocation. Soft tissues: Unremarkable. Vasculature: Unremarkable. No abdominal aortic aneurysm. Lymph nodes: Unremarkable. IMPRESSION: 1. Hepatic steatosis. 2. Question 3 mm hypodense lesion within the head of the pancreas which may represent a sidebranch IPMN. 3. Cysts within both kidneys.
--- NOTE | 2019-08-09 19:10 | NUR ---
ED Nurse Note: Pt in bed and asking for food. Pt given a sandwich and juice.
--- NOTE | 2019-08-09 19:11 | NUR ---
HAND-OFF: Report given to Chinmay KITCHEN.
--- NOTE | 2019-08-09 19:12 | NUR ---
ED Nurse Note: Pt states pain is at 5/10.
[2019-08-09 19:30] VITALS: BP 145/95
[2019-08-09] MEDS ORDERED: LORazepam Inj 2mg/ml 1ml IV ONE (19:30)
[2019-08-09 19:41] LABS: APPEARANCE,URINE CLEAR; BILIRUBIN, URINE NEGATIVE (NEGATIVE); GLUCOSE, URINE (UA) NEGATIVE (NEGATIVE); KETONES,URINE 3+ (NEGATIVE); LEUKOCYTE ESTERASE ,URINE NEGATIVE (NEGATIVE); NITRITE,URINE NEGATIVE (NEGATIVE); PH,URINE 6 (4.5-8.0); PROTEIN,URINE 2+ (NEGATIVE); UROBILINOGEN,URINE 1 MG/DL (0.0-1.0)
[2019-08-09 19:43] LABS: COLOR,URINE YELLOW
--- NOTE | 2019-08-09 21:51 | NUR ---
ED Nurse Note: Called Vince at 2139 to give report with no answer. Called Nurse brush fabrication supervisor with no answer as well. Last call made at 2151.
[2019-08-09 21:56] VITALS: BP 138/75
[2019-08-09] MEDS ORDERED: PREDNISOLO15 MG/5 M1 ORAL (21:56)
--- NOTE | 2019-08-09 22:21 | NUR ---
ED Nurse Note: Called Vince for report with no answer.
--- NOTE | 2019-08-09 22:33 | NUR ---
[facility] ambulance is here now to transport patient.
--- NOTE | 2019-08-09 22:38 | NUR ---
ED Nurse Note: Report given to FIDELINA Clarke
[2019-08-09 22:43] VITALS: BP 135/78
--- NOTE | 2019-08-09 22:43 | NUR ---
ER DISCHARGE NOTE: Patient is cleared to be discharged per ERMD, pt is aox4, on room air, with stable vital signs. pt was given dc instructions, pt was able to verbalize understanding, pt id band and iv site removed without complications. pt is able to ambulate with steady gait. pt took all belongings. Pt left with ambulance.
== END 2019-08-09 22:43 | disposition short-term general hospital (02) ==
LOC: EDBD 16:07 → EMR 17:28
DX: J44.1 Chronic obstructive pulmonary disease with (acute) exacerbation (principal); F10.10 Alcohol abuse, uncomplicated; F11.20 Opioid dependence, uncomplicated; G40.909 Epilepsy, unspecified, not intractable, without status epilepticus; I10 Essential (primary) hypertension; E11.9 Type 2 diabetes mellitus without complications; Z88.6 Allergy status to analgesic agent; Z88.8 Allergy status to other drugs, medicaments and biological substances; R00.0 Tachycardia, unspecified
CPT/HCPCS: 36415; 71045; 74177; 80053; 80307; 81003; 84484; 85025; 86850; 86900; 86901; 87040; 87086; 94640; 94664; 96374; 96375; 96376; G0480; G0481; J2930; Q9967; S0028; Z7502; 99285; J7620

== ENCOUNTER 2019-09-03 20:32 | Emergency (ER) | payer OTHER ==
[~2019-09-03] VITALS: Ht 172.7 cm; Wt 86.2 kg
[~2019-09-03 20:32] MED LIST changes: +PREDNISOLO15 MG/5 M1 ORAL
--- NOTE | 2019-09-03 20:38 | Emergency Room Report ---
History of Present Illness General Chief Complaint: Upper Respiratory Illness Source: Patient Present Illness HPI 54-year-old male history of alcohol abuse history of extensive smoking, presents with acute shortness of breath over the past 5 days alleviating factors albuterol aggravating factors unknown severity is moderate, constant acutely worsening, brought in by EMS given albuterol with some relief patient denies any chest pain but he does endorse some shortness of breath patient presents for evaluation Allergies: Coded Allergies: PENICILLINS (Verified Allergy, Severe, unknown, 11/27/12) PHENOBARBITAL (Verified Allergy, Severe, unknown, 11/27/12) PHENYTOIN SODIUM (Verified Allergy, Severe, unknown, 11/27/12) CODEINE (Unverified Allergy, Unknown, 06/14/17) IBUPROFEN (Unverified Allergy, Unknown, 12/07/16) PHENYTOIN (Unverified Allergy, Unknown, 05/14/16) Patient History Limited by: medical condition - History limited due to patient's acute shortness of breath Past Medical History: see triage record Social History: Reports: smoking, alcohol use Reviewed Nursing Documentation: PMH: Agreed; PSxH: Agreed Nursing Documentation-PMH Hx Cardiac Problems: Yes - CHF Hx Hypertension: Yes Hx Asthma: Yes Hx COPD: Yes Hx Diabetes: Yes Hx Cancer: No Hx Gastrointestinal Problems: Yes Hx Dialysis: Yes Hx Neurological Problems: Yes - opiate dependence, ETOH Hx Seizures: Yes Review of Systems All Other Systems: limited - History limited due to patient's acute shortness of breath Physical Exam Vital Signs Date Time Temp Pulse Resp B/P (MAP) Pulse Ox O2 Delivery O2 Flow Rate FiO2 09/03/19 20:28 97.5 78 26 154/120 (131) 100 Simple Mask 6.0 Sp02 EP Interpretation: reviewed, normal General Appearance: alert, moderate distress Head: normocephalic, atraumatic Eyes: bilateral eye PERRL, bilateral eye EOMI ENT: uvula midline, moist mucus membranes Neck: supple, thyroid normal, supple/symm/no masses Respiratory: respiratory distress, decreased breath sounds, accessory muscle use, wheezing - Moderate wheezing Cardiovascular #1: normal peripheral pulses, regular rate, rhythm, no edema, no gallop, no murmur Gastrointestinal: non tender, soft, no guarding, no rebound Musculoskeletal: normal inspection Neurologic: alert, oriented x3 Psychiatric: mood/affect normal Skin: no rash, warm/dry Medical Decision Making Diagnostic Impression: Primary Impression: COPD exacerbation ER Course 54-year-old male presents with acute shortness of breath differential diagnosis includes ACS, COPD exacerbation, pneumonia Patient given steroids duo nebs Patient recently hospitalized gave him cefepime and vancomycin additionally patient significantly improved. Patient blood gas taken after multiple rounds of duo nebs, no evidence of CO2 retention Reevaluation 9:48 PM's breathing significantly improved however patient continues to be short of breath We will admit patient for COPD exacerbation Laboratory Tests Test 09/03/19 20:43 09/03/19 21:05 09/03/19 21:27 Arterial Blood pH 7.428 (7.350-7.450) Arterial Blood Partial Pressure CO2 36.4 mmHg (35.0-45.0) Arterial Blood Partial Pressure O2 78.7 mmHg (75.0-100.0) Arterial Blood HCO3 23.5 mmol/L (22.0-26.0) Arterial Blood Oxygen Saturation 94.1 % (95-100) L Arterial Blood Base Excess -0.4 (-2-2) Shamar Test Positive Sodium Level 148 MMOL/L (136-145) H Potassium Level 4.6 MMOL/L (3.5-5.1) Chloride Level 106 MMOL/L (98-107) Carbon Dioxide Level 25 MMOL/L (21-32) Anion Gap 17 mmol/L (5-15) H Blood Urea Nitrogen 21 mg/dL (7-18) H Creatinine 1.1 MG/DL (0.55-1.30) Estimate Glomerular Filtration Rate > 60 mL/min (>60) Glucose Level 93 MG/DL (74-106) Calcium Level 8.5 MG/DL (8.5-10.1) Total Bilirubin 0.2 MG/DL (0.2-1.0) Aspartate Amino Transferase (AST) 50 U/L (15-37) H Alanine Aminotransferase (ALT) 62 U/L (12-78) Alkaline Phosphatase 102 U/L (46-116) Troponin I 0.000 ng/mL (0.000-0.056) Pro-B-Type Natriuretic Peptide 53 pg/mL (0-125) Total Protein 7.8 G/DL (6.4-8.2) Albumin 3.8 G/DL (3.4-5.0) Globulin 4.0 g/dL Albumin/Globulin Ratio 0.9 (1.0-2.7) L White Blood Count 7.4 K/UL (4.8-10.8) Red Blood Count 4.20 M/UL (4.70-6.10) L Hemoglobin 13.7 G/DL (14.2-18.0) L Hematocrit 41.3 % (42.0-52.0) L Mean Corpuscular Volume 98 FL (80-99) Mean Corpuscular Hemoglobin 32.6 PG (27.0-31.0) H Mean Corpuscular Hemoglobin Concent 33.1 G/DL (32.0-36.0) Red Cell Distribution Width 15.4 % (11.6-14.8) H Platelet Count 304 K/UL (150-450) Mean Platelet Volume 7.3 FL (6.5-10.1) Neutrophils (%) (Auto) 36.7 % (45.0-75.0) L Lymphocytes (%) (Auto) 51.4 % (20.0-45.0) H Monocytes (%) (Auto) 8.6 % (1.0-10.0) Eosinophils (%) (Auto) 2.3 % (0.0-3.0) Basophils (%) (Auto) 1.0 % (0.0-2.0) EKG Diagnostic Results EKG Time: 20:47 EP Interpretation: Sinus tachycardia, rate 123, QTc 460, normal axis no acute ST elevations Rhythm Strip Diag. Results Rhythm Strip Time: 21:47 EP Interpretation: yes Rate: 119 Rhythm: other - Sinus tachycardia Chest X-Ray Diagnostic Results Chest X-Ray Diagnostic Results : Chest X-Ray Ordered: Yes # of Views/Limited/Complete: 1 View Indication: Shortness of Breath EP Interpretation: Yes Interpretation: no consolidation, no effusion, no pneumothorax, no acute cardiopulmonary disease Impression: No acute disease Electronically Signed by: Gustavo Luz MD Last Vital Signs Date Time Temp Pulse Resp B/P (MAP) Pulse Ox O2 Delivery O2 Flow Rate FiO2 09/03/19 20:28 97.5 78 26 154/120 (131) 100 Simple Mask 6.0 Disposition: XFER SHT-TRM HOSP Condition: Stable Gustavo Luz MD Sep 03, 2019 20:38
[2019-09-03] MEDS ORDERED: Cefepime HCl 2 GM in D5W 55 ML IVPB ONE (20:45)
[2019-09-03] MEDS ORDERED: Vancomycin 1.5 GM in NS 275 ML IVPB ONE (20:45)
[2019-09-03 20:48] VITALS: BP 154/120
--- NOTE | 2019-09-03 21:00 | NUR ---
ED Nurse Note: pt presents to ED via EMS arrival for SOB for "several days." pt as given 5 mg albuterol en route which brought his saturation from 93% on room air to 99%. pt states that he took his meds at home but SOB did not go away. pt also c/o L shoulder px stating that it is broken and that he fell on it. pt is asking for pain meds stating that he needs something "stronger than morphine" Addendum: 09/03/19 at 2249 by CADE pt came with simple mask, placed by EMS
[2019-09-03] MEDS: Albuterol ud Inhalation HHN SCH ×2 (21:08→21:09)
[2019-09-03] MEDS: Ipratropium 0.02% Inh Soln 2.5ml UD HHN SCH ×2 (21:08→21:09)
[2019-09-03 21:34] LABS: ANION GAP 17 mmol/L (5-15); BLOOD UREA NITROGEN 21 mg/dL (7-18); CALCIUM 8.5 MG/DL (8.5-10.1); CARBON DIOXIDE 25 MMOL/L (21-32); CHLORIDE 106 MMOL/L (98-107); CREATININE 1.1 MG/DL (0.55-1.30); POTASSIUM 4.6 MMOL/L (3.5-5.1); SODIUM 148 MMOL/L (136-145)
[2019-09-03 21:43] LABS: ALANINE AMINOTRANSFERASE 62 U/L (12-78); ALBUMIN 3.8 G/DL (3.4-5.0); ALBUMIN/GLOBULIN RATIO 0.9 (1.0-2.7); ALKALINE PHOSPHATASE 102 U/L (46-116); ASPARTATE AMINO TRANSFERASE 50 U/L (15-37); BILIRUBIN,TOTAL 0.2 MG/DL (0.2-1.0)
[2019-09-03] MEDS ORDERED: Hydromorphone 0.5mg/0.5ml inj IVP ONE (21:45)
[2019-09-03 21:50] LABS: EOSINOPHILS % (AUTO) 2.3 % (0.0-3.0); HEMATOCRIT 41.3 % (42.0-52.0); HEMOGLOBIN 13.7 G/DL (14.2-18.0); LYMPHOCYTES % (AUTO) 51.4 % (20.0-45.0); MEAN CORPUSCULAR VOLUME 98 FL (80-99); MONOCYTES % (AUTO) 8.6 % (1.0-10.0); NEUTROPHILS % (AUTO) 36.7 % (45.0-75.0); PLATELET COUNT 304 K/UL (150-450); RED CELL DISTRIBUTION WIDTH 15.4 % (11.6-14.8); WHITE BLOOD COUNT 7.4 K/UL (4.8-10.8)
[2019-09-03] MEDS ORDERED: DiphenhydrAMINE 50mg/ml Inj IVP ONE (22:00)
[2019-09-03] MEDS ORDERED: HYDROmorphone 1mg/ml Carpuject IVP ONE (22:15)
--- NOTE | 2019-09-03 22:36 | NUR ---
ED Nurse Note: spoke with pt's nurse outreach case manager Tiffanie about clinical data
[2019-09-03 22:40] VITALS: BP 147/111
[2019-09-03] MEDS ORDERED: LORazepam Inj 2mg/ml 1ml IV ONE (23:00)
--- NOTE | 2019-09-03 23:29 | NUR ---
ED Nurse Note: asked to call back to give report for pt. #[phone]
--- NOTE | 2019-09-03 23:39 | NUR ---
ED Nurse Note: called [facility] to give report, no answer. voicemail was left. will continue to monitor pt
[2019-09-04 00:29] VITALS: BP 159/99
--- NOTE | 2019-09-04 00:37 | NUR ---
ED Nurse Note: report given to FIDELINA Dimas at [facility]. pt is in bed sleeping, does not appear to be in any distress at this time, VSS
[2019-09-04 01:30] VITALS: BP 159/99
--- NOTE | 2019-09-04 01:30 | NUR ---
ED Nurse Note: pt transferred to [facility] via [facility] unit # [id number]. pt is in no acute distress and stable for transfer per RADHA Rashid. pt left with all belongings
--- NOTE | 2019-09-04 10:24 | Diagnostic Imaging Report ---
Indication: Shortness of breath Technique: One view of the chest Comparison: One 06/08/2020 Findings: Lungs and pleural spaces are clear. Heart size is normal. No significant change Impression: No acute process
== END 2019-09-04 01:30 | disposition short-term general hospital (02) ==
LOC: EDBD 20:32 → EMR 20:50
DX: J44.1 Chronic obstructive pulmonary disease with (acute) exacerbation (principal); I50.9 Heart failure, unspecified; I10 Essential (primary) hypertension; E11.9 Type 2 diabetes mellitus without complications; G40.909 Epilepsy, unspecified, not intractable, without status epilepticus; F11.20 Opioid dependence, uncomplicated; F10.20 Alcohol dependence, uncomplicated; Z88.0 Allergy status to penicillin; Z88.5 Allergy status to narcotic agent; Z88.6 Allergy status to analgesic agent; Z88.8 Allergy status to other drugs, medicaments and biological substances; Z79.51 Long term (current) use of inhaled steroids
CPT/HCPCS: 36415; 36600; 71045; 80053; 82803; 82962; 83880; 84484; 85025; 93005; 96365; 96366; 96368; 96375; J1170; J1200; J3370; J7030; J7050; J7512; Z7502; 99285

== ENCOUNTER 2019-09-23 20:29 | Emergency (ER) | payer OTHER ==
[~2019-09-23] VITALS: Ht 172.7 cm; Wt 81.6 kg
--- NOTE | 2019-09-23 20:50 | NUR ---
ED Nurse Note: RECIEVED PT NEEL FROM HIS HOME WITH C/O MID CHEST AND BACK PAIN, PT HAS CHRONIC PAIN, ADMITS TO ALCOHOL DRINKING WITH STRONG ODOR OF ALCOHOL NOTED, PT REPORTS PAIN AT 10/10 AND ALSO FALLING ASLEEP DURING CONVERSATION, PT STATES PAIN MAKES HIM DRINK, PT IMMEDIATELY GOWNED AND PLACED ON MONITORING.
[2019-09-23 21:52] LABS: BASOPHILS % (AUTO) 1.2 % (0.0-2.0); EOSINOPHILS % (AUTO) 3.5 % (0.0-3.0); HEMATOCRIT 41.9 % (42.0-52.0); HEMOGLOBIN 14.4 G/DL (14.2-18.0); LYMPHOCYTES % (AUTO) 42.9 % (20.0-45.0); MEAN CORPUSCULAR VOLUME 97 FL (80-99); MONOCYTES % (AUTO) 11.2 % (1.0-10.0); NEUTROPHILS % (AUTO) 41.2 % (45.0-75.0); PLATELET COUNT 278 K/UL (150-450); RED BLOOD COUNT 4.32 M/UL (4.70-6.10); RED CELL DISTRIBUTION WIDTH 14.8 % (11.6-14.8); WHITE BLOOD COUNT 4.8 K/UL (4.8-10.8)
[2019-09-23 22:00] VITALS: BP 172/126
[2019-09-23] MEDS ORDERED: Lidocaine 2% Visc 15ml soln ORAL ONE (22:00)
--- NOTE | 2019-09-23 22:00 | NUR ---
ED Nurse Note: PT CONSTANTLY ASKING FOR DILAUDID PAIN MED, INFORMED AND WENT TO TALK WITH PT, MD TOLD PT SHE WOULD NOT ORDER IT AND PT BECAME ANGRY AND STATES HE IS GOING HOME, PT PULLED OUT IV LINE, IS AWAKE AND ORIENTED X 4, AMBULATORY, PT REFUSES TO SIGN OR WAIT FOR DISPO PAPERWORK, PT LEAVING AMA, CHARGE NURSE, FANG AND , AWARE.
[2019-09-23 22:01] LABS: ANION GAP 11 mmol/L (5-15); BLOOD UREA NITROGEN 17 mg/dL (7-18); CALCIUM 9.2 MG/DL (8.5-10.1); CARBON DIOXIDE 30 MMOL/L (21-32); CHLORIDE 110 MMOL/L (98-107); CREATININE 0.8 MG/DL (0.55-1.30); SODIUM 151 MMOL/L (136-145)
[2019-09-23 22:06] LABS: ALANINE AMINOTRANSFERASE 43 U/L (12-78); ALBUMIN 3.5 G/DL (3.4-5.0); ALBUMIN/GLOBULIN RATIO 0.8 (1.0-2.7); ALKALINE PHOSPHATASE 92 U/L (46-116); ASPARTATE AMINO TRANSFERASE 41 U/L (15-37); BILIRUBIN,TOTAL 0.1 MG/DL (0.2-1.0)
--- NOTE | 2019-09-23 22:28 | Emergency Room Report ---
History of Present Illness General Chief Complaint: Pain Source: Patient Present Illness HPI This patient has a history of alcohol abuse, narcotic dependence and drug- seeking behavior. Is well-known to [facility] and presents regularly for these reasons. He also has a history of COPD and continues to smoke tobacco. He presents today with chest pain radiating to his back. He denies recent illness. He denies shortness of breath. He denies cough or congestion. Denies fever chills. He denies nausea or vomiting. He states that he did drink a significant amount of alcohol today. He is requesting Dilaudid. He has no other complaints. Allergies: Coded Allergies: PENICILLINS (Verified Allergy, Severe, unknown, 11/27/12) PHENOBARBITAL (Verified Allergy, Severe, unknown, 11/27/12) PHENYTOIN SODIUM (Verified Allergy, Severe, unknown, 11/27/12) CODEINE (Unverified Allergy, Unknown, 06/14/17) IBUPROFEN (Unverified Allergy, Unknown, 12/07/16) PHENYTOIN (Unverified Allergy, Unknown, 05/14/16) Patient History Past Medical History: see triage record, DM, HTN, CAD, CHF, COPD, other - ETOH abuse, narcotic dependence Social History: Reports: smoking, alcohol use, drug use Reviewed Nursing Documentation: PMH: Agreed; PSxH: Agreed Nursing Documentation-PMH Past Medical History: No History, Except For Hx Cardiac Problems: Yes - CHF Hx Hypertension: Yes Hx Asthma: Yes Hx COPD: Yes Hx Diabetes: Yes Hx Cancer: Yes - PANCREATING CA Hx Gastrointestinal Problems: Yes Hx Dialysis: Yes Hx Neurological Problems: Yes - opiate dependence, ETOH Hx Seizures: Yes Review of Systems All Other Systems: negative except mentioned in HPI Physical Exam Vital Signs Date Time Temp Pulse Resp B/P (MAP) Pulse Ox O2 Delivery O2 Flow Rate FiO2 09/23/19 20:30 97.5 136 16 172/126 (141) 96 Room Air Sp02 EP Interpretation: reviewed, normal General Appearance: no apparent distress, alert, GCS 15, non-toxic Head: normocephalic, atraumatic Eyes: bilateral eye normal inspection, bilateral eye PERRL ENT: hearing grossly normal, normal pharynx, no angioedema, normal voice Neck: full range of motion, supple/symm/no masses Respiratory: chest non-tender, no respiratory distress, no retraction, no accessory muscle use, speaking full sentences, wheezing, expiration Cardiovascular #1: no edema, tachycardia Gastrointestinal: normal bowel sounds, soft, non-distended, no guarding, no rebound, tenderness - TTP in the epigastrium Rectal: deferred Musculoskeletal: back normal, normal range of motion, gait/station normal, non- tender Neurologic: alert, motor strength/tone normal, oriented x3, sensory intact, responsive, speech normal Psychiatric: judgement/insight normal, memory normal, mood/affect normal, no suicidal/homicidal ideation Skin: normal color Medical Decision Making Diagnostic Impression: Primary Impression: Acute alcoholic intoxication Additional Impressions: Chest pain Opiate dependence ER Course This patient was asking for Dilaudid and when I did not give the patient narcotics and educated him that until he had labs that I would not be giving narcotic pain medications. I did offer the patient aspirin which is been appropriate choice for chest pain. I also planned on a GI cocktail. The patient has a history of narcotic opioid dependence and drug-seeking behavior. The patient was also intoxicated. I do not feel that giving the patient IV narcotics is appropriate in this situation. When the patient found out he would not be getting narcotics, he ripped out his IV and eloped out of the emergency department stating that he can get better drugs of his house then here. At that time, I did not have the final results of any of his labs. Regardless, his labs are unremarkable. The patient eloped and demanding to call a taxi to pick him up and take him home. Laboratory Tests Test 09/23/19 21:35 White Blood Count 4.8 K/UL (4.8-10.8) Red Blood Count 4.32 M/UL (4.70-6.10) L Hemoglobin 14.4 G/DL (14.2-18.0) Hematocrit 41.9 % (42.0-52.0) L Mean Corpuscular Volume 97 FL (80-99) Mean Corpuscular Hemoglobin 33.3 PG (27.0-31.0) H Mean Corpuscular Hemoglobin Concent 34.3 G/DL (32.0-36.0) Red Cell Distribution Width 14.8 % (11.6-14.8) Platelet Count 278 K/UL (150-450) Mean Platelet Volume 7.1 FL (6.5-10.1) Neutrophils (%) (Auto) 41.2 % (45.0-75.0) L Lymphocytes (%) (Auto) 42.9 % (20.0-45.0) Monocytes (%) (Auto) 11.2 % (1.0-10.0) H Eosinophils (%) (Auto) 3.5 % (0.0-3.0) H Basophils (%) (Auto) 1.2 % (0.0-2.0) Sodium Level 151 MMOL/L (136-145) H Potassium Level 4.0 MMOL/L (3.5-5.1) Chloride Level 110 MMOL/L (98-107) H Carbon Dioxide Level 30 MMOL/L (21-32) Anion Gap 11 mmol/L (5-15) Blood Urea Nitrogen 17 mg/dL (7-18) Creatinine 0.8 MG/DL (0.55-1.30) Estimate Glomerular Filtration Rate > 60 mL/min (>60) Glucose Level 93 MG/DL (74-106) Calcium Level 9.2 MG/DL (8.5-10.1) Total Bilirubin 0.1 MG/DL (0.2-1.0) L Aspartate Amino Transferase (AST) 41 U/L (15-37) H Alanine Aminotransferase (ALT) 43 U/L (12-78) Alkaline Phosphatase 92 U/L (46-116) Troponin I 0.000 ng/mL (0.000-0.056) Total Protein 7.8 G/DL (6.4-8.2) Albumin 3.5 G/DL (3.4-5.0) Globulin 4.3 g/dL Albumin/Globulin Ratio 0.8 (1.0-2.7) L EKG Diagnostic Results Rate: tachycardiac Rhythm: other - S.tachycardia ST Segments: no acute changes Other Impression Qwaves in V1, V2 Rhythm Strip Diag. Results EP Interpretation: yes Rate: 110's Rhythm: no PVC's, no ectopy, other - S.tachycardia Chest X-Ray Diagnostic Results Chest X-Ray Diagnostic Results : Chest X-Ray Ordered: Yes # of Views/Limited/Complete: 1 View Indication: Chest Pain EP Interpretation: Yes Interpretation: no consolidation, no effusion, no pneumothorax, no acute cardiopulmonary disease Impression: No acute disease Electronically Signed by: Chasidy Albert DO Last Vital Signs Date Time Temp Pulse Resp B/P (MAP) Pulse Ox O2 Delivery O2 Flow Rate FiO2 09/23/19 20:30 97.5 136 16 172/126 (141) 96 Room Air Disposition: ELOPED Condition: Stable Chasidy Albert DO Sep 23, 2019 22:28
--- NOTE | 2019-09-24 13:11 | Diagnostic Imaging Report ---
Indication: Chest pain Comparison: 09/03/2019 A single view chest radiograph was obtained. Findings: Cardiomediastinal appearance is within normal limits for age. The lungs are clear. Pulmonary vascularity is appropriate. The diaphragmatic contour is smooth and costophrenic angles are sharp. No pleural effusions are identified. The bones are unremarkable. Impression: No acute findings
== END 2019-09-23 22:00 | disposition left against medical advice (07) ==
LOC: EDBD 20:29 → EMR 20:48
DX: F10.129 Alcohol abuse with intoxication, unspecified (principal); R07.9 Chest pain, unspecified; F11.20 Opioid dependence, uncomplicated; F19.10 Other psychoactive substance abuse, uncomplicated; I11.0 Hypertensive heart disease with heart failure; I50.9 Heart failure, unspecified; J44.9 Chronic obstructive pulmonary disease, unspecified; E11.9 Type 2 diabetes mellitus without complications; I25.10 Atherosclerotic heart disease of native coronary artery without angina pectoris; Z85.07 Personal history of malignant neoplasm of pancreas; Z88.0 Allergy status to penicillin; Z88.5 Allergy status to narcotic agent; Z88.8 Allergy status to other drugs, medicaments and biological substances
CPT/HCPCS: 36415; 71045; 80053; 84484; 85025; 93005; 96360; J7030; Z7502; 99283

== ENCOUNTER 2019-10-04 20:56 | Emergency (ER) | payer OTHER ==
[~2019-10-04] VITALS: Ht 185.4 cm; Wt 77.1 kg
--- NOTE | 2019-10-04 21:05 | NUR ---
ED Nurse Note: Pt BIBA d/t ETOH intoxication. Pt reports drinking a fifth of vodka at home alone. Pt reports having suicidal ideation but denies any intent on injuring himself or others. Addendum: 10/04/19 at 2328 by HÉCTOR ED Nurse Note: Pt BIBA d/t ETOH intoxication. Pt reports drinking a fifth of vodka at home alone. Pt reports having suicidal ideation but denies any intent on injuring himself or others. VSS, no s/s of distress noted. Awaiting RADHA.
--- NOTE | 2019-10-04 21:05 | NUR ---
ED Nurse Note: Pt BIBA d/t ETOH intoxication. Pt reports drinking a fifth of vodka at home alone. Pt reports having suicidal ideation but denies any intent on injuring himself or others. Pt denies pain. Pt reports living alone. Pt vss, no s/s of distress noted. awaiting ERMD at bedside
[2019-10-04 21:10] VITALS: BP 140/100
--- NOTE | 2019-10-04 22:07 | Emergency Room Report ---
History of Present Illness General Chief Complaint: Alcohol Intoxication Source: Patient, EMS Present Illness HPI 54-year-old male presents ED for evaluation. Brought in by EMS from Street. Reported EtOH. Patient is well-known to [facility]. Has been here multiple times for similar presentation. Patient is alert and oriented. Admits alcohol use. Denies drug use. Denies nausea or vomiting. Denies abdominal pain. No other aggravating relieving factors. Denies any other associated symptoms Allergies: Coded Allergies: PENICILLINS (Verified Allergy, Severe, unknown, 11/27/12) PHENOBARBITAL (Verified Allergy, Severe, unknown, 11/27/12) PHENYTOIN SODIUM (Verified Allergy, Severe, unknown, 11/27/12) CODEINE (Unverified Allergy, Unknown, 06/14/17) IBUPROFEN (Unverified Allergy, Unknown, 12/07/16) PHENYTOIN (Unverified Allergy, Unknown, 05/14/16) Patient History Past Medical History: CHF, asthma, COPD Past Surgical History: none Pertinent Family History: none Social History: Reports: alcohol use, drug use; Denies: smoking Immunizations: UTD Reviewed Nursing Documentation: PMH: Agreed; PSxH: Agreed Nursing Documentation-PMH Hx Cardiac Problems: Yes - CHF Hx Hypertension: Yes Hx Asthma: Yes Hx COPD: Yes Hx Diabetes: Yes Hx Cancer: Yes - PANCREATING CA Hx Gastrointestinal Problems: Yes Hx Dialysis: Yes Hx Neurological Problems: Yes - opiate dependence, ETOH Hx Seizures: Yes Review of Systems All Other Systems: negative except mentioned in HPI Physical Exam Vital Signs Date Time Temp Pulse Resp B/P (MAP) Pulse Ox O2 Delivery O2 Flow Rate FiO2 10/04/19 21:00 98.6 90 18 140/100 (113) 98 Room Air Sp02 EP Interpretation: reviewed, normal General Appearance: no apparent distress, alert, GCS 15, non-toxic Head: normocephalic, atraumatic Eyes: bilateral eye normal inspection, bilateral eye PERRL ENT: hearing grossly normal, normal pharynx, no angioedema, normal voice Neck: full range of motion, supple/symm/no masses Respiratory: chest non-tender, lungs clear, normal breath sounds, speaking full sentences Cardiovascular #1: regular rate, rhythm, no edema Cardiovascular #2: 2+ carotid (R), 2+ carotid (L), 2+ radial (R), 2+ radial (L) , 2+ dorsalis pedis (R), 2+ dorsalis pedis (L) Gastrointestinal: normal bowel sounds, non tender, soft, non-distended, no guarding, no rebound Rectal: deferred Genitourinary: normal inspection, no CVA tenderness Musculoskeletal: back normal, normal range of motion, gait/station normal, non- tender Neurologic: alert, motor strength/tone normal, oriented x3, sensory intact, responsive, speech normal Psychiatric: judgement/insight normal, memory normal, mood/affect normal, no suicidal/homicidal ideation Reflexes: 3+ bicep (R), 3+ bicep (L), 3+ tricep (R), 3+ tricep (L), 3+ knee (R) , 3+ knee (L) Lymphatic: no adenopathy Medical Decision Making Homeless Attestation I, The treating physician Dr. Hayden, have assessed and agrees that patient is medically stable for discharge to an outpatient disposition. Diagnostic Impression: Primary Impression: Alcohol abuse ER Course Hospital Course 54-year-old male presents to ED status post EtOH intoxication. Clinical course Patient placed on stretcher. Given that patient is able to provide an adequate history, I see no need to check blood work or place an IV. Patient allowed to sleep. given food Patient is well-known to [facility]. Has been here multiple times for alcohol intoxication. Typically requests narcotics as well. My assessment shows no evidence of SI/HI requiring psychiatric evaluation. Safe for discharge for close outpatient follow-up. Homeless checklist completed. I will provide referrals Diagnosis - ETOH intoxication stable and discharged to home. Followup with PMD. Return to ED if symptoms recur or worsen Last Vital Signs Date Time Temp Pulse Resp B/P (MAP) Pulse Ox O2 Delivery O2 Flow Rate FiO2 10/04/19 21:00 98.6 90 18 140/100 (113) 98 Room Air Status: improved Disposition: HOME, SELF-CARE Condition: Stable Scripts Ondansetron Odt* (ZOFRAN ODT*) 4 Mg Tab.rapdis 4 MG BC EVERY 8 HOURS PRN for Nausea & Vomiting, #10 TAB 0 Refills Prov: Heladio Hayden MD 10/05/19 Ranitidine Hcl* (ZANTAC*) 150 Mg Tablet 150 MG ORAL TWICE A DAY, #30 TAB Prov: Heladio Hayden MD 10/05/19 Heladio Hayden MD Oct 04, 2019 22:07
[2019-10-04 22:30] VITALS: BP 145/102
--- NOTE | 2019-10-04 23:15 | NUR ---
ED Nurse Note: pt resting in bed, VSS no s/s of distress noted.
--- NOTE | 2019-10-04 23:50 | NUR ---
ED Nurse Note: Pt began vomiting approximately 1L of fluid in total; ERMD notified.
--- NOTE | 2019-10-05 00:15 | NUR ---
ED Nurse Note: PT complaining of pain 8/10 to right flank. Pt states that he has blood clots in right lung. ERMD aware.
--- NOTE | 2019-10-05 00:39 | NUR ---
ED Nurse Note: All medications administered. Pt tolerated well. no adverse reactions noted
[2019-10-05] MEDS ORDERED: HYDROcodone/Acetamin 5/325 tab ORAL ONE (00:45)
[2019-10-05] MEDS ORDERED: Lidocaine 2% Visc 15ml soln ORAL ONE (01:00)
[2019-10-05] MEDS ORDERED: Dicyclomine HCl 10mg/5ml oral soln ORAL ONE (01:00)
[2019-10-05] MEDS ORDERED: Mylanta II UD 30ml ORAL ONE (01:00)
[2019-10-05 01:15] VITALS: BP 146/100
--- NOTE | 2019-10-05 02:15 | NUR ---
ED Nurse Note: Pt sleeping in bed, no s/s of distress noted.
[2019-10-05 03:35] VITALS: BP 150/100
--- NOTE | 2019-10-05 04:15 | NUR ---
ED Nurse Note: Pt sleeping in bed, no s/s of distress noted.
[2019-10-05] MEDS ORDERED: ONDANSETRON ODT4 MG BC (05:13)
[2019-10-05] MEDS ORDERED: RANITIDINE HCL150 MG ORAL (05:13)
[2019-10-05 05:15] VITALS: BP 149/99
[2019-10-05 05:30] VITALS: BP 149/99
--- NOTE | 2019-10-05 05:30 | NUR ---
ER DISCHARGE NOTE: Patient is cleared to be discharged home per ERMD, pt is aox4, on room air, with stable vital signs. pt was given dc and prescription instructions, pt was able to verbalize understanding, pt id band removed. pt is able to ambulate with steady gait. pt took all belongings.
== END 2019-10-05 05:30 | disposition home or self-care (01) ==
LOC: EDBD 20:56 → EDUNIT# 20:56 → EMR 21:35
DX: F10.10 Alcohol abuse, uncomplicated (principal); Z88.0 Allergy status to penicillin; Z88.6 Allergy status to analgesic agent; J44.9 Chronic obstructive pulmonary disease, unspecified; I11.0 Hypertensive heart disease with heart failure; I50.9 Heart failure, unspecified; E11.9 Type 2 diabetes mellitus without complications; Z85.07 Personal history of malignant neoplasm of pancreas; G40.909 Epilepsy, unspecified, not intractable, without status epilepticus
CPT/HCPCS: 99282

== ENCOUNTER 2019-11-09 18:58 | Emergency (ER) | payer OTHER ==
[~2019-11-09] VITALS: Ht 177.8 cm; Wt 95.3 kg
[~2019-11-09 18:58] MED LIST changes: +ONDANSETRON ODT4 MG BC; +RANITIDINE HCL150 MG ORAL
[2019-11-09] MEDS ORDERED: Albuterol 90mcg Inhaler 8gm INH STA (19:01)
[2019-11-09 19:05] VITALS: BP 163/116
--- NOTE | 2019-11-09 19:08 | Emergency Room Report ---
History of Present Illness General Chief Complaint: Upper Respiratory Illness Source: Patient, Medical Record, EMS Present Illness HPI Patient brought by EMS from home. Patient has a history of COPD. He has been coughing for 2 to 3 days. He is complaining about back pain because of the cough. He denies any fevers. The phlegm is been greenish-yellow without any blood. He has been using his inhalers he has 3. This is not the worst he is ever been. The patient is complaining about "lung" pain in his mid to upper back. He rates his pain 5/10 and more pleuritic. He denies any hemoptysis. There is no calf pain or edema. The patient has been drinking alcohol. He denies vomiting or diarrhea. Patient denies depression or suicidal ideation at this time. Patient was last admitted February 2019 after rat poison ingestion. Discharge diagnoses: Overdose with rat poison Severe hypokalemia -corrected Alcohol use and abuse Polysubstance dependency Depression Anxiety Neuropathy GERD Thrombocytopenia COVID-19 risk:Contact w/high r: No COVID-19 risk:Travel to affect: No Has patient experienced kwok: Yes Coronavirus symptoms experienc: Cough Allergies: Coded Allergies: PENICILLINS (Verified Allergy, Severe, unknown, 11/27/12) PHENOBARBITAL (Verified Allergy, Severe, unknown, 11/27/12) PHENYTOIN SODIUM (Verified Allergy, Severe, unknown, 11/27/12) CODEINE (Unverified Allergy, Unknown, 06/14/17) IBUPROFEN (Unverified Allergy, Unknown, 12/07/16) PHENYTOIN (Unverified Allergy, Unknown, 05/14/16) Patient History Past Medical History: see triage record, old chart reviewed Social History: Reports: smoking, alcohol use, drug use - THC Social History Narrative From board and care Reviewed Nursing Documentation: PMH: Agreed; PSxH: Agreed Nursing Documentation-PMH Past Medical History: No History, Except For Hx Cardiac Problems: Yes - CHF Hx Hypertension: Yes Hx Asthma: Yes Hx COPD: Yes Hx Diabetes: Yes Hx Cancer: Yes - PANCREATING CA Hx Gastrointestinal Problems: Yes Hx Dialysis: Yes Hx Neurological Problems: Yes - opiate dependence, ETOH Hx Seizures: Yes Review of Systems All Other Systems: negative except mentioned in HPI Physical Exam Vital Signs Date Time Temp Pulse Resp B/P (MAP) Pulse Ox O2 Delivery O2 Flow Rate FiO2 11/09/19 18:55 116 16 163/116 (132) 96 Room Air Sp02 EP Interpretation: reviewed, normal General Appearance: well appearing, no apparent distress, GCS 15, non-toxic Head: normocephalic Eyes: bilateral eye PERRL, bilateral eye abnormal EOM - Disconjugate gaze, bilateral eye Scleral Injection ENT: moist mucus membranes Neck: supple Respiratory: no respiratory distress, wheezing, expiration Cardiovascular #1: regular rate, rhythm Cardiovascular #2: 2+ radial (R) Gastrointestinal: normal inspection, normal bowel sounds, non tender, no mass, non-distended Genitourinary: no CVA tenderness Musculoskeletal: back normal, normal range of motion, gait/station normal Neurologic: alert, oriented x3, grossly normal - With some slurred speech Psychiatric: mood/affect normal Skin: no rash, warm/dry Medical Decision Making Diagnostic Impression: Primary Impression: COPD exacerbation Additional Impressions: Acute alcoholic intoxication Qualified Codes: F10.929 - Alcohol use, unspecified with intoxication, unspecified Elevated lipase ER Course Patient presents with cough and back pain with a history of COPD. Differential includes pneumonia, acute myocardial infarction, exacerbation of COPD, pain seeking behavior amongst others. Patient evaluated with EKG, chest x-ray and labs. Patient treated with IV hydration, Solu-Medrol and breathing treatment with metered-dose inhaler. Inhaler not available. Suspicion for COVID low. HHN ordered. Unable start IV. Medications ordered orally. EKG ST. NSSTTW changes. Labs with normal white count. CMP with slightly elevated sodium. Lipase elevated. Blood alcohol elevated. Tox screen positive for THC. Patient refusing tylenol. Patient insisting on eating. 2024 Patient is mainly concerned about whether he has COVID. Discussed that his symptoms and vital signs were against this illness. Abdomen with bowel sounds present. No tenderness or guarding or rebound. Discussed laboratory findings with patient. He states he is improved and wants to return to the [id number]. No medical emergency at this time. Patient stable for outpatient observation and treatment. Laboratory Tests Test 11/09/19 19:30 11/09/19 19:55 White Blood Count 7.5 K/UL (4.8-10.8) Red Blood Count 4.23 M/UL (4.70-6.10) L Hemoglobin 13.1 G/DL (14.2-18.0) L Hematocrit 40.9 % (42.0-52.0) L Mean Corpuscular Volume 97 FL (80-99) Mean Corpuscular Hemoglobin 30.9 PG (27.0-31.0) Mean Corpuscular Hemoglobin Concent 31.9 G/DL (32.0-36.0) L Red Cell Distribution Width 15.8 % (11.6-14.8) H Platelet Count 221 K/UL (150-450) Mean Platelet Volume 8.5 FL (6.5-10.1) Neutrophils (%) (Auto) 51.0 % (45.0-75.0) Lymphocytes (%) (Auto) 41.8 % (20.0-45.0) Monocytes (%) (Auto) 5.0 % (1.0-10.0) Eosinophils (%) (Auto) 1.2 % (0.0-3.0) Basophils (%) (Auto) 1.0 % (0.0-2.0) Prothrombin Time 10.4 SEC (9.30-11.50) Prothrombin Time INR 1.0 (0.9-1.1) Activated Partial Thromboplast Time 25 SEC (23-33) Sodium Level 148 MMOL/L (136-145) H Potassium Level 3.7 MMOL/L (3.5-5.1) Chloride Level 106 MMOL/L (98-107) Carbon Dioxide Level 25 MMOL/L (21-32) Anion Gap 17 mmol/L (5-15) H Blood Urea Nitrogen 11 mg/dL (7-18) Creatinine 0.9 MG/DL (0.55-1.30) Estimated Glomerular Filtration Rate > 60 mL/min (>60) Glucose Level 91 MG/DL (74-106) Calcium Level 8.7 MG/DL (8.5-10.1) Total Bilirubin 0.3 MG/DL (0.2-1.0) Aspartate Amino Transferase (AST) 79 U/L (15-37) H Alanine Aminotransferase (ALT) 68 U/L (12-78) Alkaline Phosphatase 101 U/L (46-116) Total Creatine Kinase 101 U/L (26-308) Troponin I 0.000 ng/mL (0.000-0.056) Pro-B-Type Natriuretic Peptide 209 pg/mL (0-125) H Total Protein 7.4 G/DL (6.4-8.2) Albumin 3.4 G/DL (3.4-5.0) Globulin 4.0 g/dL Albumin/Globulin Ratio 0.9 (1.0-2.7) L Lipase 686 U/L (73-393) H Serum Alcohol 268 mg/dL Urine Color Yellow Urine Appearance Clear Urine pH 6 (4.5-8.0) Urine Specific Oracle 1.015 (1.005-1.035) Urine Protein 2+ (NEGATIVE) H Urine Glucose (UA) Negative (NEGATIVE) Urine Ketones 1+ (NEGATIVE) H Urine Blood Negative (NEGATIVE) Urine Nitrite Negative (NEGATIVE) Urine Bilirubin Negative (NEGATIVE) Urine Urobilinogen 1 MG/DL (0.0-1.0) H Urine Leukocyte Esterase Negative (NEGATIVE) Urine RBC 0-2 /HPF (0 - 0) H Urine WBC 0-2 /HPF (0 - 0) Urine Squamous Epithelial Cells Occasional /LPF Urine Bacteria Few /HPF (NONE) Urine Opiates Screen Negative (NEGATIVE) Urine Barbiturates Screen Negative (NEGATIVE) Phencyclidine (PCP) Screen Negative (NEGATIVE) Urine Amphetamines Screen Negative (NEGATIVE) Urine Benzodiazepines Screen Negative (NEGATIVE) Urine Cocaine Screen Negative (NEGATIVE) Urine Marijuana (THC) Screen Positive (NEGATIVE) H Microbiology Date/Time Source Procedure Growth Status 11/09/19 19:30 Nasal Nares - Final Complete 11/09/19 19:30 Nasal Nares - Final Complete EKG Diagnostic Results Rate: tachycardiac Rhythm: NSR ST Segments: no acute changes Rhythm Strip Diag. Results EP Interpretation: yes Rhythm: no PVC's, no ectopy, other - Tachycardia rate 109 Chest X-Ray Diagnostic Results Chest X-Ray Diagnostic Results : Chest X-Ray Ordered: Yes # of Views/Limited/Complete: 1 View Indication: Shortness of Breath EP Interpretation: Yes Interpretation: no consolidation, no effusion, no pneumothorax, other - COPD Impression: Other Electronically Signed by: Electronically signed by Zaid Hawkins MD Last Vital Signs Date Time Temp Pulse Resp B/P (MAP) Pulse Ox O2 Delivery O2 Flow Rate FiO2 11/09/19 21:15 98.5 104 18 149/100 100 Room Air 11/09/19 20:08 21 Status: improved Disposition: HOME, SELF-CARE Condition: Improved Scripts Prednisone* (PREDNISONE*) 20 Mg Tablet 40 MG ORAL DAILY, #10 TAB Prov: Zaid Hawkins MD 11/09/19 Zaid Hawkins MD Nov 09, 2019 19:08
[2019-11-09] MEDS ORDERED: Solu-MEDROL 125mg Inj IVP ONE (19:15)
[2019-11-09] MEDS ORDERED: Acetaminophen 500mg (ES) tab ORAL ONE (19:15)
[2019-11-09] MEDS ORDERED: Albuterol/Ipratropium 3ml neb HHN ONE (19:30)
[2019-11-09] MEDS: Albuterol ud Inhalation HHN SCH ×3 (19:35→19:49)
[2019-11-09 19:48] LABS: EOSINOPHILS % (AUTO) 1.2 % (0.0-3.0); HEMATOCRIT 40.9 % (42.0-52.0); HEMOGLOBIN 13.1 G/DL (14.2-18.0); LYMPHOCYTES % (AUTO) 41.8 % (20.0-45.0); MEAN CORPUSCULAR VOLUME 97 FL (80-99); PLATELET COUNT 221 K/UL (150-450); RED BLOOD COUNT 4.23 M/UL (4.70-6.10); RED CELL DISTRIBUTION WIDTH 15.8 % (11.6-14.8); WHITE BLOOD COUNT 7.5 K/UL (4.8-10.8)
[2019-11-09 19:53] LABS: ANION GAP 17 mmol/L (5-15); BLOOD UREA NITROGEN 11 mg/dL (7-18); CALCIUM 8.7 MG/DL (8.5-10.1); CARBON DIOXIDE 25 MMOL/L (21-32); CHLORIDE 106 MMOL/L (98-107); CREATININE 0.9 MG/DL (0.55-1.30); POTASSIUM 3.7 MMOL/L (3.5-5.1); SODIUM 148 MMOL/L (136-145)
[2019-11-09 20:04] LABS: ALANINE AMINOTRANSFERASE 68 U/L (12-78); ALBUMIN 3.4 G/DL (3.4-5.0); ALBUMIN/GLOBULIN RATIO 0.9 (1.0-2.7); ALKALINE PHOSPHATASE 101 U/L (46-116); ASPARTATE AMINO TRANSFERASE 79 U/L (15-37); BILIRUBIN,TOTAL 0.3 MG/DL (0.2-1.0); CREATINE KINASE 101 U/L (26-308)
[2019-11-09 20:13] LABS: APPEARANCE,URINE CLEAR; BILIRUBIN, URINE NEGATIVE (NEGATIVE); GLUCOSE, URINE (UA) NEGATIVE (NEGATIVE); KETONES,URINE 1+ (NEGATIVE); LEUKOCYTE ESTERASE ,URINE NEGATIVE (NEGATIVE); NITRITE,URINE NEGATIVE (NEGATIVE); PH,URINE 6 (4.5-8.0); PROTEIN,URINE 2+ (NEGATIVE); UROBILINOGEN,URINE 1 MG/DL (0.0-1.0)
[2019-11-09 20:14] LABS: COLOR,URINE YELLOW
[2019-11-09] MEDS ORDERED: PREDNISONE20 MG ORAL (21:07)
[2019-11-09 21:15] VITALS: BP 149/100
--- NOTE | 2019-11-10 12:52 | Diagnostic Imaging Report ---
Indication: Dyspnea Comparison: 09/23/2019 A single view chest radiograph was obtained. Findings: Cardiomediastinal appearance is within normal limits for age. The lungs are clear. Pulmonary vascularity is appropriate. The diaphragmatic contour is smooth and costophrenic angles are sharp. No pleural effusions are identified. The bones are unremarkable. Impression: No acute findings
== END 2019-11-09 21:15 | disposition home or self-care (01) ==
LOC: EDBD 18:58 → EMR 19:28
DX: J44.1 Chronic obstructive pulmonary disease with (acute) exacerbation (principal); F10.129 Alcohol abuse with intoxication, unspecified; R79.89 Other specified abnormal findings of blood chemistry; M54.9 Dorsalgia, unspecified; F32.9 Major depressive disorder, single episode, unspecified; F41.9 Anxiety disorder, unspecified; K21.9 Gastro-esophageal reflux disease without esophagitis; F17.200 Nicotine dependence, unspecified, uncomplicated; R00.0 Tachycardia, unspecified
CPT/HCPCS: 36415; 71045; 80053; 80307; 81003; 82550; 83690; 83880; 84484; 85025; 85610; 85730; 86710; 93005; G0480; J7512; Z7502; 99284; J7030; J7620

== ENCOUNTER 2019-11-26 00:07 | Emergency (ER) | payer OTHER ==
[~2019-11-26] VITALS: Ht 172.7 cm; Wt 81.6 kg
[~2019-11-26 00:07] MED LIST changes: +PREDNISONE20 MG ORAL
[2019-11-26] MEDS ORDERED: Albuterol 90mcg Inhaler 8gm INH PRN (00:15)
[2019-11-26 00:19] VITALS: BP 162/119
--- NOTE | 2019-11-26 00:21 | Emergency Room Report ---
History of Present Illness General Chief Complaint: Alcohol Intoxication Source: Patient, EMS Present Illness HPI Patient is a 54-year-old male well-known to this emergency department and local EMS who presents to the ER for acute alcohol intoxication. Patient has history of alcohol abuse. Patient was found laying on the floor outside of his neighbor 's apartment after slipping on the wet pavement due to rain. Patient admits to drinking alcohol. He denies any fever or chills. Patient has chronic generalized body aches that are unchanged. Patient also complains of cough that is chronic. He states that he smokes approximately 4 packs of cigarettes per day. He denies any shortness of breath or chest pain. He denies any rash. He denies any abdominal pain, nausea or vomiting. Allergies: Coded Allergies: PENICILLINS (Verified Allergy, Severe, unknown, 11/27/12) PHENOBARBITAL (Verified Allergy, Severe, unknown, 11/27/12) PHENYTOIN SODIUM (Verified Allergy, Severe, unknown, 11/27/12) CODEINE (Unverified Allergy, Unknown, 06/14/17) IBUPROFEN (Unverified Allergy, Unknown, 12/07/16) PHENYTOIN (Unverified Allergy, Unknown, 05/14/16) COVID-19 Screening Contact w/high risk pt: No Recent Travel to affected area: No Experienced COVID-19 symptoms?: Yes COVID-19 symptoms experienced: Cough Patient History Social History: Reports: smoking, alcohol use Reviewed Nursing Documentation: PMH: Agreed; PSxH: Agreed Nursing Documentation-PMH Hx Cardiac Problems: Yes - CHF Hx Hypertension: Yes Hx Asthma: Yes Hx COPD: Yes Hx Diabetes: Yes Hx Cancer: Yes - PANCREATING CA Hx Gastrointestinal Problems: Yes Hx Dialysis: Yes Hx Neurological Problems: Yes - opiate dependence, ETOH Hx Seizures: Yes Review of Systems All Other Systems: negative except mentioned in HPI Physical Exam Vital Signs Date Time Temp Pulse Resp B/P (MAP) Pulse Ox O2 Delivery O2 Flow Rate FiO2 11/26/19 00:05 98.8 Medical Decision Making Last Vital Signs Date Time Temp Pulse Resp B/P (MAP) Pulse Ox O2 Delivery O2 Flow Rate FiO2 11/26/19 00:05 98.8 Donna Smith M.D. Nov 26, 2019 00:21
--- NOTE | 2019-11-26 00:22 | NUR ---
ED Nurse Note: Patient brought in by ambulance RA68 d/t fall related to ETOH use. Patient ingested unknown amount of ETOH tonight. Patient aao x 3 and ambulatory with unsteady gait d/t ETOH use. Patient c/o pain on left side of back 5/10, redness noted. Patient changed into gown. ERMD at bedside. Patient stable upon assessment. Addendum: 11/26/19 at 0045 by [facility] ED Nurse Note: Patient brought in by ambulance RA68 d/t fall related to ETOH use. Patient ingested unknown amount of ETOH tonight. Patient aao x 3 and ambulatory with unsteady gait d/t ETOH use, pt normally uses cane. Patient c/o pain on left side of back 5/10, redness noted. Patient changed into gown. ERMD at bedside. Patient stable upon assessment.
--- NOTE | 2019-11-26 00:41 | NUR ---
ED Nurse Note: Patient given a urinal and fall precautions implemented. Bed side rails up.
--- NOTE | 2019-11-26 00:52 | NUR ---
ED Nurse Note: Patient taken to CT in stable condition.
--- NOTE | 2019-11-26 01:00 | NUR ---
ED Nurse Note: Patient returned from CT in stable condition.
--- NOTE | 2019-11-26 01:04 | NUR ---
ED Nurse Note: Xray at bedside.
--- NOTE | 2019-11-26 01:39 | Diagnostic Imaging Report ---
Indications: Fell while intoxicated, hit back of head Technique: Spiral acquisitions obtained through the brain. Angled axial and coronal 5 x 5 mm slices were reconstructed. Total dose length product 1232 mGycm. CTDI vol(s) 53 mGy. Dose reduction achieved using automated exposure control Comparison: 03/27/2020 Findings: There is mild prominence of the ventricles and extra axial CSF spaces. This is similar to the previous exam. There is mild periventricular deep white matter low-attenuation, consistent with chronic microvascular ischemic change. No acute intercranial hemorrhage or edema. No mass effect nor midline shift. Visualized orbits are unremarkable. The calvarium is intact. The mastoids are clear. There is minimal disease within the visualized sphenoid and ethmoid sinuses. No significant interim change Impression: Mild involutional changes and periventricular deep white matter chronic ischemic change, somewhat advanced for age Negative for acute intracranial bleed or mass effect This agrees with the preliminary interpretation provided overnight by [facility] teleradiology service. The CT scanner at [facility] is accredited by the [employer] and the scans are performed using protocols designed to limit radiation exposure to as low as reasonably achievable to attain images of sufficient resolution adequate for diagnostic evaluation.
[2019-11-26] MEDS ORDERED: PREDNISONE20 MG ORAL (01:42)
[2019-11-26] MEDS ORDERED: ALBUTEROL SULF8.5 G1 INH (01:42)
[2019-11-26 05:21] VITALS: BP 149/92
--- NOTE | 2019-11-26 05:21 | NUR ---
ER DISCHARGE NOTE: Patient is cleared to be discharged per ERMD, pt is aox4, on room air, with stable vital signs. pt was given dc and prescription instructions, pt was able to verbalize understanding, pt id band removed. pt is able to ambulate with cane. pt took all belongings. pt provided with meal and warm clothes. pt stable upon discharge.
--- NOTE | 2019-11-26 09:40 | Diagnostic Imaging Report ---
Indication: Cough for 3 days Technique: One view of the chest Comparison: 11/09/2019 Findings: The lungs and pleural spaces are clear. The heart size is normal. Impression: Negative
== END 2019-11-26 05:21 | disposition home or self-care (01) ==
LOC: EDBD 00:07 → EMR 00:51
DX: F10.129 Alcohol abuse with intoxication, unspecified (principal); Z88.0 Allergy status to penicillin; Z88.6 Allergy status to analgesic agent; Z88.8 Allergy status to other drugs, medicaments and biological substances; R05 Cough; F17.210 Nicotine dependence, cigarettes, uncomplicated; J44.9 Chronic obstructive pulmonary disease, unspecified; I11.0 Hypertensive heart disease with heart failure; I50.9 Heart failure, unspecified; G40.909 Epilepsy, unspecified, not intractable, without status epilepticus; E11.9 Type 2 diabetes mellitus without complications; Z85.07 Personal history of malignant neoplasm of pancreas
CPT/HCPCS: 70450; 71045; J7512; Z7502; 99284

== ENCOUNTER 2019-11-29 16:11 | Emergency (ER) | payer OTHER ==
[~2019-11-29] VITALS: Ht 180.3 cm; Wt 90.7 kg
[~2019-11-29 16:11] MED LIST changes: +ALBUTEROL SULF8.5 G1 INH
[2019-11-29 16:15] VITALS: BP 125/90
--- NOTE | 2019-11-29 16:20 | NUR ---
ED Nurse Note: Patient BIBA d/t ETOH intoxication. Patient states he has been feeling suicidal for 2 days. He states he was thinking of walking in front of traffic, but has not tried to do anything. Patient states he has been drinking to feel better. He also has a large, round red area of irritation on his mid-left back that he states feels like a 9/10 unspecified type of pain. Patient does not know how he got the skin irritation. Patient AxO x 4, no s/s of acute distress.
--- NOTE | 2019-11-29 16:45 | NUR ---
ED Nurse Note: Celestina LEPE at bedside
--- NOTE | 2019-11-29 16:53 | Emergency Room Report ---
History of Present Illness General Chief Complaint: Suicidal Source: EMS (Celestina Baptiste) Source: Patient (Andrea Burrows MD) Present Illness HPI 54-year-old male that is well-known to this emergency department presents for suicidal ideation x1 day. Patient reports that he has had several attempts in the past usually an attempt to cut his wrist or his neck. Patient states that he currently was considering walking out into traffic. He reports increase in his depression he states he is currently taking Seroquel and Remeron. Patient states he has been taking his medications as directed. He also has a history of EtOH dependence and abuse. Patient denies drinking or doing any drugs today. Patient does report he is a daily smoker. He reports 4-10 severity pain localized to the left side of his back where he has a sustained abrasion. Patient states he does not recall how he sustained this abrasion. Patient denies chest pain, palpitations, shortness of breath, cough, fevers, chills, nausea, vomiting or abdominal pain/tenderness. He denies recent trauma or fall. No other aggravating or relieving factors at this time. (Celestina Baptiste) Allergies: Coded Allergies: PENICILLINS (Verified Allergy, Severe, unknown, 11/27/12) PHENOBARBITAL (Verified Allergy, Severe, unknown, 11/27/12) PHENYTOIN SODIUM (Verified Allergy, Severe, unknown, 11/27/12) CODEINE (Unverified Allergy, Unknown, 06/14/17) IBUPROFEN (Unverified Allergy, Unknown, 12/07/16) PHENYTOIN (Unverified Allergy, Unknown, 05/14/16) COVID-19 Screening Contact w/high risk pt: No Recent Travel to affected area: No Experienced COVID-19 symptoms?: No COVID-19 symptoms experienced: Cough (Celestina Baptiste) Patient History Past Medical History: see triage record, psych hx Past Surgical History: none Pertinent Family History: none Social History: Reports: smoking Reviewed Nursing Documentation: PMH: Agreed; PSxH: Agreed (Celestina Baptiste) Nursing Documentation-PMH Hx Cardiac Problems: Yes - CHF Hx Hypertension: Yes Hx Asthma: Yes Hx COPD: Yes Hx Diabetes: Yes Hx Cancer: Yes - PANCREATIC CA Hx Gastrointestinal Problems: Yes Hx Dialysis: Yes Hx Neurological Problems: Yes - opiate dependence, ETOH Hx Seizures: Yes (Celestina Baptiste) Review of Systems All Other Systems: negative except mentioned in HPI (Celestina Baptiste) Physical Exam Vital Signs Date Time Temp Pulse Resp B/P (MAP) Pulse Ox O2 Delivery O2 Flow Rate FiO2 11/29/19 16:08 96.4 140 18 125/90 (102) 96 Room Air Sp02 EP Interpretation: reviewed, normal General Appearance: no apparent distress, alert, GCS 15, non-toxic Head: normocephalic, atraumatic Eyes: bilateral eye normal inspection, bilateral eye PERRL ENT: hearing grossly normal, normal voice Neck: full range of motion Respiratory: chest non-tender, lungs clear, normal breath sounds, no respiratory distress, no accessory muscle use, no wheezing, speaking full sentences Cardiovascular #1: regular rate, rhythm Gastrointestinal: normal bowel sounds, non tender, soft Musculoskeletal: back normal, normal range of motion, gait/station normal, non- tender Neurologic: alert, motor strength/tone normal, oriented x3, sensory intact, responsive, speech normal Psychiatric: judgement/insight normal, depressed affect - SI Skin: normal color, abrasion - left mid-back abrasion: 5cm in diameter., other - no obvious acute/new self inflicted wounds. some scaring of superficial scratches on the left forearm. Lymphatic: no adenopathy (Celestina Baptiste) Medical Decision Making PA Attestation Dr. Quintana is my supervising Physician whom patient management has been discussed with. (Celestina Baptiste) PA Attestation I participated in the care of this patient along with SHERLEY Iniguez Briefly, this is a 54-year-old male history of alcohol and drug abuse presenting for worsening depression and suicidal ideation. He is contemplating running in front of traffic. Has made suicidal gestures but in the past. He is seeking voluntary placement for psychiatric evaluation. (Clement Quintana MD) Diagnostic Impression: Primary Impression: Abrasion of back Qualified Codes: S20.412A - Abrasion of left back wall of thorax, initial encounter Additional Impressions: Alcohol intoxication Qualified Codes: F10.920 - Alcohol use, unspecified with intoxication, uncomplicated Suicidal behavior Qualified Codes: R46.89 - Other symptoms and signs involving appearance and behavior ER Course 54-year-old male that is well-known to this emergency department presents for suicidal ideation x1 day. Patient reports that he has had several attempts in the past usually an attempt to cut his wrist or his neck. Patient states that he currently was considering walking out into traffic. He reports increase in his depression he states he is currently taking Seroquel and Remeron. Patient states he has been taking his medications as directed. He also has a history of EtOH dependence and abuse. Patient denies drinking or doing any drugs today. Patient does report he is a daily smoker. He reports 4-10 severity pain localized to the left side of his back where he has a sustained abrasion. Patient states he does not recall how he sustained this abrasion. Patient denies chest pain, palpitations, shortness of breath, cough, fevers, chills, nausea, vomiting or abdominal pain/tenderness. He denies recent trauma or fall. No other aggravating or relieving factors at this time. Pt is hyperactive, and has a very anxious and restless affect. Ddx considered but are not limited to OD, SI/HI, psychosis, UTI, intoxication Vital signs: are WNL, pt. is afebrile H&PE are most consistent with behavioral/mental health issue ORDERS: -CBC, CMP -UA: negative for infection see results attached. -UDS: -Salicylates and Acetaminophen - no acute intoxication. ED INTERVENTIONS: - DISPOSITION: (Celestina Baptiste) ER Course Patient signed out to me. He presents with alcohol intoxication and suicidal thoughts. He is now clinically sober. He is talking normally without any slurred speech. He uses a walker and has no issue with walking. He is no longer suicidal. This is a similar presentation multiple times in the past. Will discharge home. This patient is a chronic risk of self injury due to poor impulse control, limited coping skills, and judgment intermittently impaired by intoxication. I believe that the available clinical evidence to suggest that these characteristics derived primarily from personality disorder and are likely very stable over time. Hospitalization would likely attenuate risk of self-harm only during penitentiary period, without lasting risk reduction. Serious self-harm , while possible, would likely be inadvertent, and because of impulsivity, and foreseeable. For these reasons, I do not believe hospitalization would provide meaningful reduction in risk of self-harm. (Andrea Burrows MD) Last Vital Signs Date Time Temp Pulse Resp B/P (MAP) Pulse Ox O2 Delivery O2 Flow Rate FiO2 11/29/19 16:08 96.4 140 18 125/90 (102) 96 Room Air (Celestina Baptiste) Status: improved (Andrea Burrows MD) Disposition: HOME, SELF-CARE Condition: Stable Signed Out To: Dr. Quintana (Celestina Baptiste) Referrals: NON PHYSICIAN (PCP) Patient Instructions: Suicidal Feelings: How to Help Yourself Additional Instructions: Abstain from alcohol and drugs. Follow-up with your doctor in 7 days. You may need referral to see mental health. Return if symptoms worsen. Celestina Baptiste Nov 29, 2019 16:53 Clement Quintana MD Nov 29, 2019 19:58 Andrea Burrows MD Nov 29, 2019 22:12
[2019-11-29] MEDS ORDERED: Bacitracin Oint UD TOPIC ONE (17:15)
[2019-11-29 18:15] VITALS: BP 125/90
--- NOTE | 2019-11-29 19:05 | NUR ---
HAND-OFF: Report given to Ramila KITCHEN.
--- NOTE | 2019-11-29 19:19 | NUR ---
ED Nurse Note: Lab called again for blood draw, states they will be on the unit within 15 minutes. Blood draw pending.
--- NOTE | 2019-11-29 19:25 | NUR ---
ED Nurse Note: lab at bedside
--- NOTE | 2019-11-29 19:45 | NUR ---
ED Nurse Note: pt requested pain medication for hip, shoulder, and lower back 10/10 pain. ERMD informed. Medication administered, pt tolerated well no ss of distress noted.
[2019-11-29 19:52] LABS: BASOPHILS % (AUTO) 1.2 % (0.0-2.0); HEMATOCRIT 41.8 % (42.0-52.0); LYMPHOCYTES % (AUTO) 13.6 % (20.0-45.0); MEAN CORPUSCULAR VOLUME 99 FL (80-99); MONOCYTES % (AUTO) 6.2 % (1.0-10.0); NEUTROPHILS % (AUTO) 78.9 % (45.0-75.0); PLATELET COUNT 270 K/UL (150-450); RED BLOOD COUNT 4.22 M/UL (4.70-6.10); WHITE BLOOD COUNT 7.6 K/UL (4.8-10.8)
[2019-11-29 20:01] LABS: ANION GAP 19 mmol/L (5-15); BLOOD UREA NITROGEN 18 mg/dL (7-18); CALCIUM 8.1 MG/DL (8.5-10.1); CARBON DIOXIDE 25 MMOL/L (21-32); CHLORIDE 95 MMOL/L (98-107); CREATININE 1.1 MG/DL (0.55-1.30); POTASSIUM 3.1 MMOL/L (3.5-5.1); SODIUM 139 MMOL/L (136-145)
[2019-11-29 20:06] LABS: ALANINE AMINOTRANSFERASE 140 U/L (12-78); ALBUMIN 3.1 G/DL (3.4-5.0); ALBUMIN/GLOBULIN RATIO 0.8 (1.0-2.7); ALKALINE PHOSPHATASE 121 U/L (46-116); ASPARTATE AMINO TRANSFERASE 267 U/L (15-37); BILIRUBIN,TOTAL 0.5 MG/DL (0.2-1.0)
[2019-11-29] MEDS ORDERED: Morphine Sulfate 2mg/ml Inj(IV/IM USE ONLY) IVP ONE (20:30)
[2019-11-29 20:45] VITALS: BP 135/92
--- NOTE | 2019-11-29 20:53 | NUR ---
ED Nurse Note: Pt vomited approximately 600ml of chunky fluid, ERMD aware. Medication administered. Pt tolerated well.
--- NOTE | 2019-11-29 21:45 | NUR ---
ED Nurse Note: pt resting in bed, VSS no ss of distress noted.
--- NOTE | 2019-11-29 22:30 | NUR ---
ER DISCHARGE NOTE: Patient is cleared to be discharged home per ERMD, pt is aox4, on room air, with stable vital signs. pt was given dc instructions, pt was able to verbalize understanding, pt id band and iv site removed without complications. pt is able to ambulate with steady gait with walker. pt took all belongings.
[2019-11-29 22:34] VITALS: BP 137/97
[2019-11-29 22:44] VITALS: BP 137/97
== END 2019-11-29 22:30 | disposition home or self-care (01) ==
LOC: EDBD 16:11 → EMR 16:28
DX: R45.851 Suicidal ideations (principal); F10.129 Alcohol abuse with intoxication, unspecified; S20.412A Abrasion of left back wall of thorax, initial encounter; X58.XXXA Exposure to other specified factors, initial encounter; Y92.9 Unspecified place or not applicable; S50.812A Abrasion of left forearm, initial encounter; Y93.9 Activity, unspecified; I11.0 Hypertensive heart disease with heart failure; I50.9 Heart failure, unspecified; J44.9 Chronic obstructive pulmonary disease, unspecified; E11.9 Type 2 diabetes mellitus without complications; Z85.07 Personal history of malignant neoplasm of pancreas; G40.909 Epilepsy, unspecified, not intractable, without status epilepticus; F17.200 Nicotine dependence, unspecified, uncomplicated; R05 Cough; Z88.6 Allergy status to analgesic agent; Z88.0 Allergy status to penicillin; Z88.8 Allergy status to other drugs, medicaments and biological substances; Z91.5 Personal history of self-harm; F32.9 Major depressive disorder, single episode, unspecified; Z79.899 Other long term (current) drug therapy
CPT/HCPCS: 36415; 80053; 80307; 85025; 96374; 96375; G0480; G0481; J2270; J2405; Z7502; 99284

== ENCOUNTER 2019-12-29 13:13 | Emergency (ER) | payer OTHER ==
[~2019-12-29] VITALS: Ht 172.7 cm; Wt 77.1 kg
[2019-12-29 13:18] VITALS: BP 150/114
[2019-12-29] MEDS ORDERED: Acetaminophen 500mg (ES) tab ORAL ONE (13:45)
[2019-12-29] MEDS ORDERED: Albuterol 90mcg Inhaler 8gm INH ONE (13:45)
[2019-12-29] MEDS ORDERED: Solu-MEDROL 125mg Inj IVP ONE (13:45)
--- NOTE | 2019-12-29 14:35 | Emergency Room Report ---
History of Present Illness General Chief Complaint: Chest Pain Source: Patient, EMS (Heladio Hayden MD) Present Illness HPI 54-year-old male presents for evaluation of cough and chest pain. Brought in by EMS. Started a few days ago. Pain is worse with deep breaths and coughing. Cough is dry. History of COPD. Denies fevers or chills. Denies drug use. Denies sick contacts. Denies recent travel. No other aggravating relieving factors. Denies any other associated symptoms (Heladio Hayden MD) Allergies: Coded Allergies: PENICILLINS (Verified Allergy, Severe, unknown, 11/27/12) PHENOBARBITAL (Verified Allergy, Severe, unknown, 11/27/12) PHENYTOIN SODIUM (Verified Allergy, Severe, unknown, 11/27/12) CODEINE (Unverified Allergy, Unknown, 06/14/17) IBUPROFEN (Unverified Allergy, Unknown, 12/07/16) PHENYTOIN (Unverified Allergy, Unknown, 05/14/16) COVID-19 Screening Contact w/high risk pt: No Recent Travel to affected area: No Experienced COVID-19 symptoms?: No COVID-19 symptoms experienced: Cough (Heladio Hayden MD) Patient History Past Medical History: asthma, COPD Past Surgical History: none Pertinent Family History: none Social History: Reports: smoking, alcohol use; Denies: drug use Immunizations: UTD Reviewed Nursing Documentation: PMH: Agreed; PSxH: Agreed (Heladio Hayden MD) Nursing Documentation-PMH Hx Cardiac Problems: Yes - CHF Hx Hypertension: Yes Hx Asthma: Yes Hx COPD: Yes Hx Diabetes: Yes Hx Cancer: Yes - PANCREATIC CA Hx Gastrointestinal Problems: Yes Hx Dialysis: Yes Hx Neurological Problems: Yes - opiate dependence, ETOH Hx Seizures: Yes (Heladio Hayden MD) Review of Systems All Other Systems: negative except mentioned in HPI (Heladio Hayden MD) Physical Exam Vital Signs Date Time Temp Pulse Resp B/P (MAP) Pulse Ox O2 Delivery O2 Flow Rate FiO2 12/29/19 13:08 98.8 120 18 150/114 (126) 97 Room Air Sp02 EP Interpretation: reviewed, normal General Appearance: no apparent distress, alert, GCS 15, non-toxic Head: normocephalic, atraumatic Eyes: bilateral eye normal inspection, bilateral eye PERRL ENT: hearing grossly normal, normal pharynx, no angioedema, normal voice Neck: full range of motion, supple/symm/no masses Respiratory: lungs clear, normal breath sounds, speaking full sentences, other - reproducible chest wall pain Cardiovascular #1: regular rate, rhythm, no edema Cardiovascular #2: 2+ carotid (R), 2+ carotid (L), 2+ radial (R), 2+ radial (L) , 2+ dorsalis pedis (R), 2+ dorsalis pedis (L) Gastrointestinal: normal bowel sounds, non tender, soft, non-distended, no guarding, no rebound Rectal: deferred Genitourinary: normal inspection, no CVA tenderness Musculoskeletal: back normal, normal range of motion, gait/station normal, non- tender Neurologic: alert, motor strength/tone normal, oriented x3, sensory intact, responsive, speech normal Psychiatric: judgement/insight normal, memory normal, mood/affect normal, no suicidal/homicidal ideation Reflexes: 3+ bicep (R), 3+ bicep (L), 3+ tricep (R), 3+ tricep (L), 3+ knee (R) , 3+ knee (L) Lymphatic: no adenopathy (Heladio Hayden MD) Medical Decision Making ER Course Assumed care from previous provider approximately 2:30 PM. Briefly, this is a 54-year-old male with a history of COPD presenting for evaluation of chest pain. EKG is slightly tachycardic but nonischemic and unchanged from previous, chest x-ray shows no infiltrates, no pneumonia. Labs are returned within normal limits. Symptoms were consistent with a bronchitis/ COPD exacerbation and chest wall pain from coughing. The patient was treated with IV steroids and given a MDI inhaler. Stable for outpatient treatment of COPD exacerbation. Will be continued on prednisone and prescribed azithromycin as he is allergic to penicillins. He will be allowed to take his MDI inhaler with him. Referred to clinic and outpatient COVID-19 testing but the patient declined. Information included in discharge paperwork in case he changes his mind. Discussed reasons to return to the emergency department. He understands and agrees with this treatment plan. Laboratory Tests Test 12/29/19 14:45 White Blood Count 11.2 K/UL (4.8-10.8) H Red Blood Count 4.19 M/UL (4.70-6.10) L Hemoglobin 12.9 G/DL (14.2-18.0) L Hematocrit 37.9 % (42.0-52.0) L Mean Corpuscular Volume 91 FL (80-99) Mean Corpuscular Hemoglobin 30.9 PG (27.0-31.0) Mean Corpuscular Hemoglobin Concent 34.1 G/DL (32.0-36.0) Red Cell Distribution Width 15.0 % (11.6-14.8) H Platelet Count 228 K/UL (150-450) Mean Platelet Volume 7.0 FL (6.5-10.1) Neutrophils (%) (Auto) % (45.0-75.0) Lymphocytes (%) (Auto) % (20.0-45.0) Monocytes (%) (Auto) % (1.0-10.0) Eosinophils (%) (Auto) % (0.0-3.0) Basophils (%) (Auto) % (0.0-2.0) Neutrophils % (Manual) Pending Lymphocytes % (Manual) Pending Platelet Estimate Pending Platelet Morphology Pending Sodium Level 143 MMOL/L (136-145) Potassium Level 3.3 MMOL/L (3.5-5.1) L Chloride Level 101 MMOL/L (98-107) Carbon Dioxide Level 25 MMOL/L (21-32) Anion Gap 18 mmol/L (5-15) H Blood Urea Nitrogen 14 mg/dL (7-18) Creatinine 0.9 MG/DL (0.55-1.30) Estimated Glomerular Filtration Rate > 60 mL/min (>60) Glucose Level 109 MG/DL (74-106) H Calcium Level 8.1 MG/DL (8.5-10.1) L Total Bilirubin 0.5 MG/DL (0.2-1.0) Aspartate Amino Transferase (AST) 68 U/L (15-37) H Alanine Aminotransferase (ALT) 59 U/L (12-78) Alkaline Phosphatase 82 U/L (46-116) Troponin I 0.000 ng/mL (0.000-0.056) Total Protein 7.2 G/DL (6.4-8.2) Albumin 3.4 G/DL (3.4-5.0) Globulin 3.8 g/dL Albumin/Globulin Ratio 0.9 (1.0-2.7) L Serum Alcohol Pending (Clement Quintana MD) EKG Diagnostic Results EKG Time: 13:22 Rate: tachycardiac Rhythm: NSR ST Segments: no acute changes Other Impression Sinus rhythm, normal axis, normal intervals, no ST segment changes. (Clement Quintana MD) Rhythm Strip Diag. Results Rhythm Strip Time: 13:22 EP Interpretation: yes Rate: 115 Rhythm: NSR, no PVC's, no ectopy (Clement Quintana MD) Chest X-Ray Diagnostic Results Chest X-Ray Diagnostic Results : Chest X-Ray Ordered: Yes # of Views/Limited/Complete: 1 View Indication: Chest Pain EP Interpretation: Yes Interpretation: no consolidation, no effusion, no pneumothorax, no acute cardiopulmonary disease Impression: No acute disease Electronically Signed by: Electronically signed by Dr. Clement Quintana (Clement Quintana MD) Last Vital Signs Date Time Temp Pulse Resp B/P (MAP) Pulse Ox O2 Delivery O2 Flow Rate FiO2 12/29/19 13:18 120 18 Room Air 12/29/19 13:18 98.8 150/114 97 (Heladio Hayden MD) Disposition: HOME, SELF-CARE Condition: Stable Scripts Azithromycin* (ZITHROMAX*) 250 Mg Tablet 250 MG ORAL DAILY, #6 TAB 0 Refills Take two tables once daily for 1 day, then one tablet once daily for 4 days. Prov: Clement Quintana MD 12/29/19 Prednisone* (PREDNISONE*) 20 Mg Tablet 40 MG ORAL DAILY for 5 Days, #10 TAB Prov: Clement Quintana MD 12/29/19 Referrals: [facility],REFERRING (PCP) Heladio Hayden MD December 29, 2019 14:34 Clement Quintana MD December 29, 2019 15:33
[2019-12-29 15:09] LABS: HEMATOCRIT 37.9 % (42.0-52.0); HEMOGLOBIN 12.9 G/DL (14.2-18.0); MEAN CORPUSCULAR VOLUME 91 FL (80-99); PLATELET COUNT 228 K/UL (150-450); RED BLOOD COUNT 4.19 M/UL (4.70-6.10); WHITE BLOOD COUNT 11.2 K/UL (4.8-10.8)
[2019-12-29 15:10] VITALS: BP 148/95
[2019-12-29 15:12] LABS: ANION GAP 18 mmol/L (5-15); BLOOD UREA NITROGEN 14 mg/dL (7-18); CALCIUM 8.1 MG/DL (8.5-10.1); CARBON DIOXIDE 25 MMOL/L (21-32); CHLORIDE 101 MMOL/L (98-107); CREATININE 0.9 MG/DL (0.55-1.30); POTASSIUM 3.3 MMOL/L (3.5-5.1); SODIUM 143 MMOL/L (136-145)
[2019-12-29 15:17] LABS: ALANINE AMINOTRANSFERASE 59 U/L (12-78); ALBUMIN 3.4 G/DL (3.4-5.0); ALBUMIN/GLOBULIN RATIO 0.9 (1.0-2.7); ALKALINE PHOSPHATASE 82 U/L (46-116); ASPARTATE AMINO TRANSFERASE 68 U/L (15-37); BILIRUBIN,TOTAL 0.5 MG/DL (0.2-1.0)
[2019-12-29] MEDS ORDERED: PREDNISONE20 MG ORAL (15:30)
--- NOTE | 2019-12-29 15:53 | Diagnostic Imaging Report ---
Indication: Cough Technique: One view of the chest Comparison: For 04/08/2020 Findings: Lungs and pleural spaces are clear. Heart size is normal. No significant change Impression: No acute process
[2019-12-29] MEDS ORDERED: ZITHROMAX250 MG ORAL (16:31)
[2019-12-29 16:39] VITALS: BP 145/90
== END 2019-12-29 16:39 | disposition home or self-care (01) ==
LOC: EDBD 13:13 → EMR 14:00
DX: R07.9 Chest pain, unspecified (principal); J44.9 Chronic obstructive pulmonary disease, unspecified; R05 Cough; G40.909 Epilepsy, unspecified, not intractable, without status epilepticus; E11.9 Type 2 diabetes mellitus without complications; I50.9 Heart failure, unspecified; I11.0 Hypertensive heart disease with heart failure; R00.0 Tachycardia, unspecified; Z85.07 Personal history of malignant neoplasm of pancreas; Z88.0 Allergy status to penicillin; F17.200 Nicotine dependence, unspecified, uncomplicated; Z88.6 Allergy status to analgesic agent
CPT/HCPCS: 36415; 71045; 80053; 84484; 85007; 85025; 93005; 94640; 96361; 96374; G0480; J2930; J7030; Z7502; 99284

== ENCOUNTER 2020-04-07 14:13 | Emergency (ER) | payer OTHER ==
[~2020-04-07] VITALS: Ht 177.8 cm; Wt 88.5 kg
[~2020-04-07 14:13] MED LIST changes: +ZITHROMAX250 MG ORAL
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
[2020-04-07] MEDS ORDERED: EPINEPHrine 1mg/1ml Amp IM ONE (14:30)
[2020-04-07] MEDS ORDERED: Ipratropium 0.02% Inh Soln 2.5ml UD HHN ONE (14:30)
[2020-04-07] MEDS ORDERED: Solu-MEDROL 125mg Inj IVP ONE (14:30)
[2020-04-07 15:13] LABS: BASOPHILS % (AUTO) 1.5 % (0.0-2.0); EOSINOPHILS % (AUTO) 1.4 % (0.0-3.0); HEMATOCRIT 41.8 % (42.0-52.0); HEMOGLOBIN 13.3 G/DL (14.2-18.0); LYMPHOCYTES % (AUTO) 42.4 % (20.0-45.0); MEAN CORPUSCULAR VOLUME 90 FL (80-99); MONOCYTES % (AUTO) 9.3 % (1.0-10.0); NEUTROPHILS % (AUTO) 45.4 % (45.0-75.0); PLATELET COUNT 347 K/UL (150-450); RED BLOOD COUNT 4.66 M/UL (4.70-6.10); RED CELL DISTRIBUTION WIDTH 17.8 % (11.6-14.8); WHITE BLOOD COUNT 8.6 K/UL (4.8-10.8)
[2020-04-07 15:16] LABS: ANION GAP 10 mmol/L (5-15); BLOOD UREA NITROGEN 15 mg/dL (7-18); CALCIUM 8.9 MG/DL (8.5-10.1); CARBON DIOXIDE 24 MMOL/L (21-32); CHLORIDE 103 MMOL/L (98-107); CREATININE 1.1 MG/DL (0.55-1.30); POTASSIUM 4.1 MMOL/L (3.5-5.1); SODIUM 137 MMOL/L (136-145)
[2020-04-07 15:29] LABS: ALANINE AMINOTRANSFERASE 42 U/L (12-78); ALBUMIN 3.8 G/DL (3.4-5.0); ALBUMIN/GLOBULIN RATIO 0.9 (1.0-2.7); ALKALINE PHOSPHATASE 89 U/L (46-116); ASPARTATE AMINO TRANSFERASE 45 U/L (15-37); BILIRUBIN,TOTAL 0.5 MG/DL (0.2-1.0); CREATINE KINASE 203 U/L (26-308)
[2020-04-07] MEDS ORDERED: LORazepam Inj 2mg/ml 1ml IV ONE (15:30)
[2020-04-07] MEDS ORDERED: DiphenhydrAMINE 50mg/ml Inj IM ONE (15:30)
[2020-04-07] MEDS ORDERED: Haloperidol 5mg/ml Inj IM ONE (15:30)
[2020-04-07] MEDS ORDERED: cefTRIAXone 1 GM in NS 55 ML IVPB ONE (16:15)
[2020-04-07] MEDS: Albuterol ud Inhalation HHN SCH ×3 (16:20→16:22)
--- NOTE | 2020-04-07 16:23 | Diagnostic Imaging Report ---
Indication: Dyspnea Technique: One view of the chest Comparison: 12/29/2019 Findings: Lungs and pleural spaces are clear. Heart size is normal. Inspiration is suboptimal. No significant interim change Impression: No acute process
[2020-04-07 16:50] VITALS: BP 119/81
[2020-04-07 18:17] LABS: APPEARANCE,URINE CLEAR; COLOR,URINE PALE YELLOW; PH,URINE 7 (4.5-8.0)
[2020-04-07 18:18] LABS: BILIRUBIN, URINE NEGATIVE (NEGATIVE); GLUCOSE, URINE (UA) NEGATIVE (NEGATIVE); KETONES,URINE NEGATIVE (NEGATIVE); LEUKOCYTE ESTERASE ,URINE NEGATIVE (NEGATIVE); NITRITE,URINE NEGATIVE (NEGATIVE); PROTEIN,URINE 2+ (NEGATIVE); UROBILINOGEN,URINE NORMAL MG/DL (0.0-1.0)
[2020-04-07 18:36] VITALS: BP 140/96
[2020-04-07] MEDS ORDERED: Azithromycin 500 MG in D5W 275 ML IVPB ONE (19:00)
[2020-04-07] MEDS ORDERED: Morphine Sulfate 4mg/ml Inj (IV USE ONLY) IVP ONE (19:00)
[2020-04-07 20:46] VITALS: BP 164/101
[2020-04-07] MEDS ORDERED: Acetaminophen 500mg (ES) tab ORAL ONE (21:00)
[2020-04-07] MEDS ORDERED: Heparin 5000 units/ml inj SUBQ SCH (22:45)
[2020-04-07] MEDS ORDERED: Morphine Sulfate 4mg/ml Inj (IV USE ONLY) IVP PRN (22:45)
[2020-04-07] MEDS ORDERED: Zolpidem 5mg tab ORAL PRN (22:45)
[2020-04-07] MEDS ORDERED: Morphine Sulfate 2mg/ml Inj(IV/IM USE ONLY) IVP PRN (22:45)
[2020-04-07] MEDS ORDERED: Miralax 17gm pkt ORAL PRN (22:45)
[2020-04-07] MEDS ORDERED: Albuterol/Ipratropium 3ml neb HHN PRN (22:45)
[2020-04-07 23:15] VITALS: BP 169/105
[2020-04-08 01:16] VITALS: BP 169/97
[2020-04-08] MEDS ORDERED: Morphine Sulfate 4mg/ml Inj (IV USE ONLY) IVP ONE (02:15)
[2020-04-08] MEDS ORDERED: Solu-MEDROL 125mg Inj IVP SCH (03:00)
[2020-04-08 03:35] VITALS: BP 169/97
[2020-04-08] MEDS ORDERED: Aspirin Baby 81mg ORAL SCH (09:00)
== END 2020-04-08 03:35 | disposition short-term general hospital (02) ==
LOC: EDBD 14:13 → EDUNIT# 14:13 → EMR 14:37
DX: J44.1 Chronic obstructive pulmonary disease with (acute) exacerbation (principal); R45.851 Suicidal ideations; F10.929 Alcohol use, unspecified with intoxication, unspecified; R74.8 Abnormal levels of other serum enzymes; R74.0 Nonspecific elevation of levels of transaminase and lactic acid dehydrogenase [LDH]; J44.9 Chronic obstructive pulmonary disease, unspecified; E11.9 Type 2 diabetes mellitus without complications; G40.909 Epilepsy, unspecified, not intractable, without status epilepticus; I11.0 Hypertensive heart disease with heart failure; F17.200 Nicotine dependence, unspecified, uncomplicated; F19.90 Other psychoactive substance use, unspecified, uncomplicated; Z76.5 Malingerer [conscious simulation]; Z85.07 Personal history of malignant neoplasm of pancreas; Z72.89 Other problems related to lifestyle; Z88.0 Allergy status to penicillin; Z88.6 Allergy status to analgesic agent; Z88.5 Allergy status to narcotic agent; Z88.8 Allergy status to other drugs, medicaments and biological substances; Z79.899 Other long term (current) drug therapy
CPT/HCPCS: 36415; 71045; 80053; 80307; 81003; 82550; 83605; 83690; 83880; 84484; 85025; 85610; 85730; 87040; 93005; 94640; 96361; 96365; 96367; 96372; 96375; 96376; G0480; J0171; J0456; J0696; J1200; J1630; J2270; J2930; J7030; U0002; Z7502; 99291; 99292

== ENCOUNTER 2020-09-06 13:02 | Emergency (ER) | payer OTHER ==
[~2020-09-06] VITALS: Ht 180.3 cm; Wt 68.0 kg
--- NOTE | 2020-09-06 13:10 | NUR ---
ED Nurse Note: PT. BROUGHT IN BY [id number] FROM HOME. PER PT. HE HAS LOWER BACK PAIN RATED 10/10. NO S/S OF ACUTE RESP DISTRESS NOTED AT THIS TIME
[2020-09-06] MEDS ORDERED: Morphine Sulfate 2mg/ml Inj(IV/IM USE ONLY) ONE (13:29)
[2020-09-06] MEDS ORDERED: Morphine Sulfate 2mg/ml Inj(IV/IM USE ONLY) IVP ONE (13:30)
[2020-09-06 14:44] VITALS: BP 136/86
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
[2020-09-06 14:48] LABS: EOSINOPHILS % (AUTO) 0.2 % (0.0-3.0); HEMATOCRIT 39.5 % (42.0-52.0); HEMOGLOBIN 12.3 G/DL (14.2-18.0); LYMPHOCYTES % (AUTO) 33.8 % (20.0-45.0); MEAN CORPUSCULAR VOLUME 86 FL (80-99); MONOCYTES % (AUTO) 4.6 % (1.0-10.0); NEUTROPHILS % (AUTO) 60.4 % (45.0-75.0); PLATELET COUNT 301 K/UL (150-450); RED BLOOD COUNT 4.62 M/UL (4.70-6.10); RED CELL DISTRIBUTION WIDTH 18.9 % (11.6-14.8); WHITE BLOOD COUNT 4.6 K/UL (4.8-10.8)
[2020-09-06 15:00] LABS: ANION GAP 21 mmol/L (5-15); BLOOD UREA NITROGEN 25 mg/dL (7-18); CALCIUM 8.3 MG/DL (8.5-10.1); CARBON DIOXIDE 20 MMOL/L (21-32); CHLORIDE 99 MMOL/L (98-107); CREATININE 1.1 MG/DL (0.55-1.30); SODIUM 140 MMOL/L (136-145)
[2020-09-06 15:14] LABS: ALANINE AMINOTRANSFERASE 30 U/L (12-78); ALBUMIN 3.2 G/DL (3.4-5.0); ALBUMIN/GLOBULIN RATIO 0.7 (1.0-2.7); ALKALINE PHOSPHATASE 82 U/L (46-116); ASPARTATE AMINO TRANSFERASE 57 U/L (15-37); BILIRUBIN,TOTAL 0.3 MG/DL (0.2-1.0)
--- NOTE | 2020-09-06 15:27 | NUR ---
ED Nurse Note: pt was taken to ct
--- NOTE | 2020-09-06 15:41 | Diagnostic Imaging Report ---
Indication: Pain, trauma Technique: 3 views of the left shoulder Comparison: A 03/08/2016 Findings: Previously demonstrated left shoulder fracture has healed with some residual deformity. There is a corticated ossific density between the common femoral head, which may represent an intra-articular loose body, possibly from either an ununited fracture fragment or some heterotopic ossification. There is also a small corticated ossific density within the acromioclavicular joint which was evident previously. No acute fracture. No dislocation. Joint spaces are preserved Impression: No acute process Old healed left shoulder fracture deformity Likely intra-articular loose body, probably related to prior fracture
[2020-09-06 16:00] LABS: APPEARANCE,URINE CLEAR; BILIRUBIN, URINE NEGATIVE (NEGATIVE); GLUCOSE, URINE (UA) NEGATIVE (NEGATIVE); KETONES,URINE 2+ (NEGATIVE); LEUKOCYTE ESTERASE ,URINE NEGATIVE (NEGATIVE); NITRITE,URINE NEGATIVE (NEGATIVE); PH,URINE 5 (4.5-8.0); PROTEIN,URINE 2+ (NEGATIVE); UROBILINOGEN,URINE NORMAL MG/DL (0.0-1.0)
[2020-09-06 16:01] LABS: COLOR,URINE YELLOW
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
[2020-09-06 18:40] VITALS: BP 134/84
--- NOTE | 2020-09-06 18:40 | NUR ---
ER DISCHARGE NOTE: Patient is cleared to be discharged per ERPA, pt is aox4, on room air, with stable vital signs. pt was given dc and prescription instructions, pt was able to verbalize understanding, pt id band and iv site removed without complications. pt is able to ambulate with steady gait. pt took all belongings.
== END 2020-09-06 18:40 | disposition home or self-care (01) ==
LOC: EDBD 13:02 → EMR 13:35
DX: F10.129 Alcohol abuse with intoxication, unspecified (principal); R74.02 Elevation of levels of lactic acid dehydrogenase [LDH]; G89.29 Other chronic pain; R07.9 Chest pain, unspecified; R51.9 Headache, unspecified; M54.5 Low back pain; J44.9 Chronic obstructive pulmonary disease, unspecified; R05 Cough; Z85.07 Personal history of malignant neoplasm of pancreas; I11.0 Hypertensive heart disease with heart failure; I50.9 Heart failure, unspecified; F11.20 Opioid dependence, uncomplicated; M50.31 Other cervical disc degeneration, high cervical region; M48.02 Spinal stenosis, cervical region; Z88.0 Allergy status to penicillin; Z88.5 Allergy status to narcotic agent; Z88.8 Allergy status to other drugs, medicaments and biological substances
CPT/HCPCS: 36415; 70450; 71250; 72125; 73030; 80053; 80307; 81003; 83605; 85025; 85610; 85730; 96361; 96374; G0480; J2270; J7030; U0002; Z7502; 99284